=== PATIENT | male | born 1950 | race Caucasian/White ===

== ENCOUNTER 2018-02-04 08:18 | Observation (INO) | payer MEDICARE, OTHER, SELFPAY ==
[2018-02-04] VITALS (7 sets, daily range): BP systolic 110–138; BP diastolic 57–78; PULSE 62–74; RESP 16–22; TEMP 36.5–37.3; O2SAT 93–98; BMI 25.8
--- NOTE | 2018-02-04 08:45 | ED.ABDPAIN ---
HPI - Abdominal Pain General Chief Complaint: Abdominal Pain Stated Complaint: STOMACH PAIN,NAUSEA Time Seen by Provider: 02/04/18 08:45 Source: patient Mode of arrival: ambulatory Limitations: no limitations History of Present Illness HPI narrative: Patient is a 67-year-old male who presents with abdominal pain and vomiting. He says he has history of small-bowel obstructions. This started last evening he can usually take nausea medicine and pain medicine which usually helps it. However this time it did not. He says he feels like his abdomen is distended he says he is passing gas and having bowel movements. Related Data Home Medications Medication Instructions Recorded Confirmed atorvastatin 40 mg PO DAILY 02/04/18 02/04/18 bupropion HCl (smoking deter) 150 mg PO BID 02/04/18 02/04/18 hydrocodone-acetaminophen 1 tab PO Q4H PRN 02/04/18 02/04/18 prochlorperazine maleate 10 mg PO Q6-8H PRN 02/04/18 02/04/18 Allergies Allergy/AdvReac Type Severity Reaction Status Date / Time Penicillins [PENICILLINS] Allergy Unknown Verified 02/04/18 08:33 Review of Systems Review of Systems All systems reviewed & are unremarkable except as noted in HPI and below Constitutional Denies chills, Denies fever(s), Denies lethargy and Denies weakness Cardiovascular Denies chest pain, Denies irregular heart rhythm, Denies lightheadedness, Denies palpitations, Denies dyspnea, Denies dyspnea on exertion and Denies orthopnea Respiratory Denies cough, Denies dyspnea, Denies dyspnea on exertion and Denies wheezing Gastrointestinal Gastrointestinal: Reports as per HPI Musculoskeletal Denies back pain, Denies muscle weakness, Denies numbness and Denies tingling Integumentary/Breasts Denies pruritus, Denies erythema, Denies rash and Denies wounds Neurologic Denies numbness, Denies tingling and Denies weakness Endocrine Denies palpitations Allergic/Immunologic Denies wheezing [facility] Medical History Bowel obstruction (Acute) High cholesterol (Acute) Smoker (Acute) Surgical History H/O exploratory laparotomy (Acute ~1980) History of cholecystectomy (Acute ~1983) Social History household members: spouse Smoking Status: Current every day smoker alcohol intake: current Exam Initial Vital Signs Initial Vital Signs: Vital Signs Temperature 97.7 F 02/04/18 08:33 Pulse Rate 62 02/04/18 08:33 Respiratory Rate 22 02/04/18 08:33 Blood Pressure 137/71 H 02/04/18 08:33 Pulse Oximetry 98 02/04/18 08:33 Eyes Pupils: PERRL EOM: EOM intact bilaterally Resp Effort & Inspection: normal respiratory effort and able to speak in complete sentences Auscultation: clear to auscultation bilaterally, no rales, no rhonchi and no wheezes Cardio Rate: regular rate Rhythm: regular rhythm Heart Sounds: S1 normal, S2 normal and no murmurs GI Palpation: soft Auscultation: hyperactive bowel sounds Skin General: no rashes or lesions noted, No jaundice and No petechiae Neuro General: alert, oriented x3, gait normal and no focal motor deficits Speech: speech normal Course Orders Ordered: ED Orders 02/04/18 08:50 XR acute abdomen series Stat 02/04/18 08:55 Complete Blood Count AUTO DIFF Stat Comprehensive Metabolic Panel Stat Lipase Stat 02/04/18 11:26 Education, smoking cessation ONGOING 02/04/18 12:00 MRSA PCR Stat UA Complete [Urinalysis and Microscopic] Stat 02/05/18 05:00 Complete Blood Count AUTO DIFF Routine Comprehensive Metabolic Panel Routine Enoxaparin Sodium (Lovenox) 40 mg SUBCUT DAILY CHARMAINE Last Admin: 02/04/18 11:42 Dose: 40 mg Sodium Chloride (Normal Saline 0.9%) 1,000 mls @ 1,000 mls/hr IV CONT CHARMAINE Last Infusion: 02/04/18 10:31 Dose: 0 mls/hr Admin: 02/04/18 09:02 Dose: 1,000 mls/hr Dextrose/Sodium Chloride (Dextrose 5%-0.9% Ns) 1,000 mls @ 100 mls/hr IV CONT CHARMAINE Last Admin: 02/04/18 11:44 Dose: 100 mls/hr Discontinued Medications Morphine Sulfate (Morphine) 4 mg IV NOW ONE Stop: 02/04/18 08:51 Last Admin: 02/04/18 09:02 Dose: 4 mg Ondansetron HCl (Zofran) 4 mg IV NOW ONE Stop: 02/04/18 08:51 Last Admin: 02/04/18 09:02 Dose: 4 mg Consultations Consultation #1: Dr. Hooks has been updated patient's symptoms and test results. Recommends placed in observation Vital Signs - 8 hr 02/04/18 08:33 02/04/18 10:34 02/04/18 11:36 Temperature 97.7 F 98.1 F Pulse Rate 62 73 74 Respiratory Rate 22 16 16 Blood Pressure 137/71 H 123/57 H Blood Pressure [Left Arm] 112/67 Pulse Oximetry 98 93 95 02/04/18 12:17 Temperature 98.1 F Pulse Rate 67 Respiratory Rate 16 Blood Pressure 123/57 H Blood Pressure [Left Arm] Pulse Oximetry 95 MDM - Abdominal Pain Lab Data Result diagrams: 02/04/18 08:55 02/04/18 08:55 Lab Results 02/04/18 02/04/18 02/04/18 Range/Units 08:55 08:55 12:00 WBC 12.8 H (4.5-11.0) X10^3/uL RBC 4.87 (4.5-5.9) X10^6/uL Hgb 14.7 (13.5-17.5) g/dL Hct 42.6 (41-53) % MCV 87.5 (80-100) fL MCH 30.1 (26-34) PG MCHC 34.4 (30-36) % RDW 13.0 (11.6-14.8) % Plt Count 188 (150-400) X10^3/uL Neut % (Auto) 92.4 H (50-75) % Lymph % (Auto) 3.0 L (25-40) % [place] % (Auto) 3.9 (3-14) % Eos % (Auto) 0.3 L (2-4) % Baso % (Auto) 0.4 (0-2) % Neut # (Auto) 23406 H (6845-2118) /uL Sodium 140 (137-145) mmol/L Potassium 4.1 (3.4-5.1) mmol/L Chloride 105 (98-107) mmol/L Carbon Dioxide 26 (22-32) mmol/L BUN 12 (9-20) mg/dL Creatinine 0.70 (0.66-1.25) mg/dL Estimated GFR > 60.0 (>60) mL/min BUN/Creatinine Ratio 17.1 (6-22) Glucose 158 H (80-110) mg/dL Calcium 9.2 (8.4-10.2) mg/dL Total Bilirubin 0.6 (0.2-1.3) mg/dL AST 24 (17-59) IU/L ALT 33 (21-72) IU/L Alkaline Phosphatase 56 (38-126) U/L Total Protein 6.8 (6.3-8.2) g/dL Albumin 4.0 (3.5-5.0) g/dL Globulin 2.8 (1.7-4.1) g/dL Albumin/Globulin Ratio 1.4 (1.0-2.8) Lipase 48 (23-300) U/L Urine Color Yellow Urine Appearance Cloudy Urine pH 7.5 (4.5-8.0) Ur Specific [place] 1.015 (1.000-1.035) Urine Protein Trace H (Negative) Urine Glucose (UA) Negative (Normal) g/dL Urine Ketones Negative (NEGATIVE) Urine Occult Blood Negative (Negative) Urine Nitrate Negative (Negative) Urine Bilirubin Negative (NEGATIVE) Urine Urobilinogen 0.2 (0.2) E.U./dL Ur Leukocyte Esterase Negative (NEGATIVE) Urine RBC None seen (0-5/HPF) Urine WBC None seen (0-5/HPF) Amorphous Sediment 3+ Urine Bacteria None seen (None) Ur Culture Indicated? Cult not indicated Micro UA Comment Not Reportable Imaging Data Abdominal x-ray: Radiologist's impression: PROCEDURE: XR ACUTE ABDOMEN SERIES INDICATIONS: 67-year-old male with history of small bowel obstruction, now with vomiting. TECHNIQUE: One view chest and two views of the abdomen were acquired. COMPARISON: [facility], , ABDOMEN ACUTE SERIES, 04/11/2016, 23:20. [facility], , ABD ACUTE SERIES, 08/29/2006, 6:44. FINDINGS: Surgical changes and devices: Cholecystectomy clips are again noted. Chest: Lungs are clear. Heart size is normal. No pleural effusions. No pneumoperitoneum. Abdomen: There is dilation of proximal and mid small bowel loops in the left abdomen, measuring up to 3.9 cm diameter. No bowel wall or fold thickening. No pneumatosis. Distal small bowel loops appear decompressed. Colon loops appear normal in caliber. No suspicious calcifications. Visualized solid organ contours appear normal. Bones: No suspicious bony lesions. There is mid lumbar spine disc degeneration. IMPRESSION: Findings consistent with recurrent mid small bowel obstruction. Dictated by: Parish Moise M.D. on 02/04/2018 at 9:27 Approved by: Parish Moise M.D. on 02/04/2018 at 9:29 [facility] [place] Narrative Medical decision making narrative: Patient is adamantly refusing an NG 2. X-ray does confirm small bowel obstruction. He says this 1 really does not feel as bad as previous ones. No further episodes of vomiting Previous small bowel obstruction resolved spontaneously. At this point he appears comfortable. Will be placed in observation further monitoring and evaluation Discharge Plan Departure Patient Disposition: Admitted as Observation Clinical Impression: Small bowel obstruction Discharge Date/Time: 02/04/18 11:10 Interventions: ED Discharge Assessment Last Done: 02/04/18 11:09 Admit Date/Time: 02/04/18 10:42 Admit Provider: Tom Hooks
--- NOTE | 2018-02-04 08:50 | DI.RAD.S_ITS ---
PROCEDURE: XR ACUTE ABDOMEN SERIES INDICATIONS: 67-year-old male with history of small bowel obstruction, now with vomiting. TECHNIQUE: One view chest and two views of the abdomen were acquired. COMPARISON: [facility], , ABDOMEN ACUTE SERIES, 04/11/2016, 23:20. [facility], CR, ABD ACUTE SERIES, 08/29/2006, 6:44. FINDINGS: Surgical changes and devices: Cholecystectomy clips are again noted. Chest: Lungs are clear. Heart size is normal. No pleural effusions. No pneumoperitoneum. Abdomen: There is dilation of proximal and mid small bowel loops in the left abdomen, measuring up to 3.9 cm diameter. No bowel wall or fold thickening. No pneumatosis. Distal small bowel loops appear decompressed. Colon loops appear normal in caliber. No suspicious calcifications. Visualized solid organ contours appear normal. Bones: No suspicious bony lesions. There is mid lumbar spine disc degeneration. IMPRESSION: Findings consistent with recurrent mid small bowel obstruction. Dictated by: Parish Moise M.D. on 02/04/2018 at 9:27 Approved by: Parish Moise M.D. on 02/04/2018 at 9:29
[2018-02-04] MEDS: ONDANSETRON 4 MG/2 ML INJ IV (09:02)
[2018-02-04] MEDS: MORPHINE 4 MG/ML INJ IV (09:02)
[2018-02-04] MEDS: SODIUM CHLORIDE 0.9% 1,000 ML 1000 ML IV (09:02)
[2018-02-04 09:04] LABS: Add Manual Diff / Slide Review NO; Basophils Percent Auto 0.4 % (0-2); Eosinophils Percent Auto 0.3 % (2-4); Hematocrit 42.6 % (41-53); Hemoglobin 14.7 g/dL (13.5-17.5); Mean Corpuscular HGB Conc 34.4 % (30-36); Mean Corpuscular Hemoglobin 30.1 PG (26-34); Mean Corpuscular Volume 87.5 fL (80-100); Monocytes Percent Auto 3.9 % (3-14); Neutrophils Absolute Auto 11800 /uL (3000-5900); Neutrophils Percent Auto 92.4 % (50-75); Platelet Count 188 X10^3/uL (150-400); Red Blood Cell Count 4.87 X10^6/uL (4.5-5.9); White Blood Cell Count 12.8 X10^3/uL (4.5-11.0)
[2018-02-04 09:19] LABS: Alanine Aminotransferase 33 IU/L (21-72); Albumin Globulin Ratio 1.4 (1.0-2.8); Alkaline Phosphatase 56 U/L (38-126); Aspartate Aminotransferase 24 IU/L (17-59); BUN Creatinine Ratio 17.1 (6-22); Bilirubin Total 0.6 mg/dL (0.2-1.3); Blood Urea Nitrogen 12 mg/dL (9-20); Calcium 9.2 mg/dL (8.4-10.2); Carbon Dioxide 26 mmol/L (22-32); Chloride 105 mmol/L (98-107); Estimated Glomerular Filt Rate > 60.0 mL/min (>60); Globulin 2.8 g/dL (1.7-4.1); Glucose 158 mg/dL (80-110); HEMOLYSIS 16 (0-50); Lipase 48 U/L (23-300); Potassium 4.1 mmol/L (3.4-5.1); Sodium 140 mmol/L (137-145); Total Protein 6.8 g/dL (6.3-8.2)
[2018-02-04] MEDS: ENOXAPARIN 40 MG/0.4 ML SYRINGE SUBCUT (11:42)
[2018-02-04] MEDS: DEXTROSE 5%-0.9% NS 1,000 ML 100 ML IV ×2 (11:44→21:21)
[2018-02-04 12:16] LABS: Bacteria Urine None Seen; RBC Urine None Seen (0-5/HPF); WBC Urine None Seen (0-5/HPF)
[2018-02-04 12:18] LABS: Appearance Urine UA CLOUDY; Bilirubin Urine UA NEGATIVE (NEGATIVE); Color Urine UA YELLOW; Glucose Urine UA NEGATIVE (Normal); Ketones Urine UA NEGATIVE (NEGATIVE); Leukocyte Esterase Urine UA NEGATIVE (NEGATIVE); Nitrite Urine UA Negative (Negative); Occult Blood Urine UA NEGATIVE (Negative); Protein Urine UA TRACE (Negative); Specific Gravity Urine UA 1.015 (1.000-1.035); Urobilinogen Urine UA 0.2 E.U./dL (0.2); pH Urine UA 7.5 (4.5-8.0)
[2018-02-04 12:25] LABS: Amorphous Sediment Urine 3+; Culture Indicated Urine Cult Not Indicated
--- NOTE | 2018-02-04 12:53 | P.HP_ITS ---
History of Present Illness Date Patient Seen: 02/04/18 Time Patient Seen: 12:51 Chief complaint: STOMACH PAIN,NAUSEA Narrative: Patient presents with nausea vomiting abdominal pain. He has a previous history of small-bowel obstructions has occurred frequently over the past several years but usually is resolved with conservative management. Symptoms started early this morning with nausea vomiting. Last normal bowel movement was yesterday. Increasing abdominal pain. He has had no vomiting now for a few hours but symptoms of pain and discomfort still persist Patient History Medical History Bowel obstruction (Acute) High cholesterol (Acute) Smoker (Acute) Surgical History H/O exploratory laparotomy (Acute ~1980) History of cholecystectomy (Acute ~1983) Family & Social History Social History: household members spouse Prior Living Arrangements House Safety & Behavioral: Feels Safe in Current No Environment Been Physically Hurt or No Threatened By a Person Suicidal Ideation Description None Suicide Plan Description No Plan Tobacco & Substance use: Tobacco type cigarettes Smoking Status Current every day smoker Smoking packs per day 1 alcohol intake current alcohol intake frequency holiday/special occasion Meds Home Medications Medication Instructions Recorded Confirmed Type atorvastatin 40 mg PO DAILY 02/04/18 02/04/18 History bupropion HCl (smoking deter) 150 mg PO BID 02/04/18 02/04/18 History hydrocodone-acetaminophen 1 tab PO Q4H PRN 02/04/18 02/04/18 History prochlorperazine maleate 10 mg PO Q6-8H PRN 02/04/18 02/04/18 History Allergies Allergy/AdvReac Type Severity Reaction Status Date / Time Penicillins [PENICILLINS] Allergy Unknown Verified 02/04/18 08:33 Review of Systems Review of Systems All systems reviewed & are unremarkable except as noted in HPI and below Exam Vital Signs (past 8 hours): - 02/04/18 08:33 02/04/18 10:34 02/04/18 11:36 Temperature 97.7 F 98.1 F Pulse Rate 62 73 74 Respiratory Rate 22 16 16 Blood Pressure 137/71 H 123/57 H Blood Pressure [Left Arm] 112/67 Pulse Oximetry 98 93 95 02/04/18 12:17 Temperature 98.1 F Pulse Rate 67 Respiratory Rate 16 Blood Pressure 123/57 H Blood Pressure [Left Arm] Pulse Oximetry 95 Oxygen Delivery Method Room Air Oxygen Flow Rate 0 Narrative Exam Narrative: Pleasant male resting comfortably no acute distress HEENT exam unremarkable Neck is supple Lungs Clear to auscultation Heart regular rhythm Abdomen is mildly distended bowel sounds are present mild diffuse tenderness to palpation no masses Lower extremities no edema Skin warm and dry Neuro exam unremarkable Objective Labs Result Diagrams: 02/04/18 08:55 02/04/18 08:55 Labs: Laboratory Results - last 24 hr 02/04/18 02/04/18 02/04/18 08:55 08:55 12:00 WBC 12.8 H RBC 4.87 Hgb 14.7 Hct 42.6 MCV 87.5 MCH 30.1 MCHC 34.4 RDW 13.0 Plt Count 188 Neut % (Auto) 92.4 H Lymph % (Auto) 3.0 L [place] % (Auto) 3.9 Eos % (Auto) 0.3 L Baso % (Auto) 0.4 Neut # (Auto) 03890 H Sodium 140 Potassium 4.1 Chloride 105 Carbon Dioxide 26 BUN 12 Creatinine 0.70 Estimated GFR > 60.0 BUN/Creatinine Ratio 17.1 Glucose 158 H Calcium 9.2 Total Bilirubin 0.6 AST 24 ALT 33 Alkaline Phosphatase 56 Total Protein 6.8 Albumin 4.0 Globulin 2.8 Albumin/Globulin Ratio 1.4 Lipase 48 Urine Color Yellow Urine Appearance Cloudy Urine pH 7.5 Ur Specific [place] 1.015 Urine Protein Trace H Urine Glucose (UA) Negative Urine Ketones Negative Urine Occult Blood Negative Urine Nitrate Negative Urine Bilirubin Negative Urine Urobilinogen 0.2 Ur Leukocyte Esterase Negative Urine RBC None seen Urine WBC None seen Amorphous Sediment 3+ Urine Bacteria None seen Ur Culture Indicated? Cult not indicated Micro UA Comment Not Reportable Assessment & Plan Plan: Assessment/Plan Narrative: One. Small bowel obstruction by x-ray and history. This has happened frequently to the patient least a few times each year and seems like. He had surgery many years ago for exploratory laparotomy and ever since then has had recurrent bowel obstructions due to adhesions. He has never had surgery for the bowel obstruction now ever. Plan to place him on IV fluids pain medications Reglan and see if we can get this to resolve with conservative management
--- NOTE | 2018-02-04 14:31 | PC.NURSE ---
PT ADMITTED TO ROOM 105 MED-SURG PT WITH ABD PAIN AND HX OF INTERMITTENT SBO- IVF AT 100CC/H NO PAIN/NAUSEA COMPLAINTS SINCE ADMISSION TO FLOOR- LUNGS CLEAR, AMBULATING TO BATHROOM- WILL MONITOR CLOSELY
[2018-02-05 00:36] VITALS: O2SAT 93
--- NOTE | 2018-02-05 00:38 | PC.NURSE ---
Pt transferred from ICU, ambulatory and independent. NPO. pt comfortable in room. oriented pt in room. physical assessments reviewed. call light in reach.
[2018-02-05 05:21] VITALS: BP 95/65; PULSE 59; RESP 19; TEMP 36.3; O2SAT 95
[2018-02-05 05:44] LABS: Add Manual Diff / Slide Review NO; Basophils Percent Auto 0.5 % (0-2); Eosinophils Percent Auto 2.7 % (2-4); Hematocrit 37.5 % (41-53); Hemoglobin 12.9 g/dL (13.5-17.5); Mean Corpuscular HGB Conc 34.5 % (30-36); Mean Corpuscular Hemoglobin 30.6 PG (26-34); Mean Corpuscular Volume 88.8 fL (80-100); Monocytes Percent Auto 9.3 % (3-14); Neutrophils Absolute Auto 4100 /uL (3000-5900); Neutrophils Percent Auto 65.5 % (50-75); Platelet Count 154 X10^3/uL (150-400); Red Blood Cell Count 4.22 X10^6/uL (4.5-5.9); White Blood Cell Count 6.2 X10^3/uL (4.5-11.0)
[2018-02-05 05:52] LABS: Alanine Aminotransferase 35 IU/L (21-72); Albumin 3.1 g/dL (3.5-5.0); Albumin Globulin Ratio 1.2 (1.0-2.8); Alkaline Phosphatase 44 U/L (38-126); Aspartate Aminotransferase 21 IU/L (17-59); BUN Creatinine Ratio 11.4 (6-22); Bilirubin Total 0.6 mg/dL (0.2-1.3); Blood Urea Nitrogen 8 mg/dL (9-20); Carbon Dioxide 26 mmol/L (22-32); Chloride 106 mmol/L (98-107); Estimated Glomerular Filt Rate > 60.0 mL/min (>60); Globulin 2.5 g/dL (1.7-4.1); Glucose 116 mg/dL (80-110); HEMOLYSIS < 15 (0-50); Potassium 3.9 mmol/L (3.4-5.1); Sodium 140 mmol/L (137-145); Total Protein 5.6 g/dL (6.3-8.2)
[2018-02-05 06:10] VITALS: BP 118/72; PULSE 61
--- NOTE | 2018-02-05 06:18 | PC.NURSE ---
no BM yet, passing gas, denies pain. BP low, asymptomatic, denies dizziness or lightheadedness. IVF.
[2018-02-05] MEDS: DEXTROSE 5%-0.9% NS 1,000 ML 100 ML IV (07:30)
[2018-02-05 07:48] VITALS: BP 118/66; PULSE 58; RESP 20; TEMP 36.4; O2SAT 95
[2018-02-05 08:32] VITALS: O2SAT 95
--- NOTE | 2018-02-05 09:28 | PM.DS.1 ---
History of Present Illness Date Patient Seen: 02/05/18 Time Patient Seen: 08:00 Chief complaint: STOMACH PAIN,NAUSEA Narrative: Patient presents with nausea vomiting abdominal pain. He has a previous history of small-bowel obstructions has occurred frequently over the past several years but usually is resolved with conservative management. Symptoms started early this morning with nausea vomiting. Last normal bowel movement was yesterday. Increasing abdominal pain. He has had no vomiting now for a few hours but symptoms of pain and discomfort still persist Discharge Providers Date of admission: 02/04/18 10:42 Discharge provider: BUDDY Spence Summary Discharge Diagnosis: 1. Small-bowel obstruction Hospital Course: This is a summary of a 24 hr stay for this 67-year-old gentleman who came in with a small-bowel obstruction is diagnosed on x-ray and history. He was placed on NPO given IV hydration and subsequently the bowel obstruction resolved with conservative management. He has required no nausea or pain medications since being admitted to the inpatient floor. His white count was slightly elevated on admission at 12.8 but this morning is 6.2. He has been afebrile, normotensive, without tachycardia. He is tolerating a regular diet at this point after having a bowel movement this morning and will be discharged. He is to be followed by his primary care provider as needed. Status at Discharge Functional status at discharge: independent ambulation Overall status at discharge: patient is back to baseline Time Spent with Patient Less than 30 minutes Exam Vital Signs (past 8 hours): - 02/05/18 05:21 02/05/18 06:10 02/05/18 07:48 Temperature 97.4 F L 97.6 F Pulse Rate 59 L 61 58 L Respiratory Rate 19 20 Blood Pressure 95/65 118/72 118/66 Pulse Oximetry 95 95 02/05/18 08:32 Temperature Pulse Rate Respiratory Rate Blood Pressure Pulse Oximetry 95 Oxygen Delivery Method Room Air Oxygen Flow Rate 0 Narrative Exam Narrative: Patient states he is feeling much better this morning without any abdominal pain. Const General: cooperative, healthy appearing, comfortable and well groomed Nutritional Appearance: obese Orientation: alert, awake and oriented x3 HENMT Head: normal to inspection, normocephalic and atraumatic Eyes General: appearance normal, both eyes and all related structures Pupils: PERRL Neck Neck: normal visual inspection, trachea midline and supple Other: No JVD or lymphadenopathy Chest Chest: normal inspection of the chest Resp Effort & Inspection: normal respiratory effort and able to speak in complete sentences Auscultation: clear to auscultation bilaterally Cardio Rate: regular rate Heart Sounds: S1 normal and S2 normal Other: No rubs clicks or murmurs appreciated. GI Inspection: normal to inspection Palpation: soft Percussion: normal to percussion Auscultation: normal bowel sounds Other: Unremarkable Back/Spine/Pelvis Other: Unremarkable Skin General: no rashes or lesions noted, dry skin and warm Neuro General: alert, awake and oriented x3 Cognition: normal cognition Speech: speech normal Gait: normal gait Motor: muscle tone normal throughout Sensory Exam: no sensory deficits noted Extrem General: normal to inspection and capillary refill normal Other: No edema Psych Appearance: grossly normal Speech and Movement: speech and movement normal Mood: congruent mood Affect: normal affect Attitude: cooperative Thought Process: normal Thought Content: normal Judgment: judgment good Objective Labs Result Diagrams: 02/05/18 05:05 02/05/18 05:05 Labs: Laboratory Results - last 24 hr 02/04/18 02/04/18 02/05/18 12:00 12:00 05:05 WBC 6.2 D RBC 4.22 L Hgb 12.9 L Hct 37.5 L MCV 88.8 MCH 30.6 MCHC 34.5 RDW 13.0 Plt Count 154 Neut % (Auto) 65.5 D Lymph % (Auto) 22.0 L [place] % (Auto) 9.3 Eos % (Auto) 2.7 Baso % (Auto) 0.5 Neut # (Auto) 4100 Sodium Potassium Chloride Carbon Dioxide BUN Creatinine Estimated GFR BUN/Creatinine Ratio Glucose Calcium Total Bilirubin AST ALT Alkaline Phosphatase Total Protein Albumin Globulin Albumin/Globulin Ratio Urine Color Yellow Urine Appearance Cloudy Urine pH 7.5 Ur Specific [place] 1.015 Urine Protein Trace H Urine Glucose (UA) Negative Urine Ketones Negative Urine Occult Blood Negative Urine Nitrate Negative Urine Bilirubin Negative Urine Urobilinogen 0.2 Ur Leukocyte Esterase Negative Urine RBC None seen Urine WBC None seen Amorphous Sediment 3+ Urine Bacteria None seen Ur Culture Indicated? Cult not indicated Micro UA Comment Not Reportable Nasal Screen MRSA (PCR) Negative for mrsa 02/05/18 05:05 WBC RBC Hgb Hct MCV MCH MCHC RDW Plt Count Neut % (Auto) Lymph % (Auto) [place] % (Auto) Eos % (Auto) Baso % (Auto) Neut # (Auto) Sodium 140 Potassium 3.9 Chloride 106 Carbon Dioxide 26 BUN 8 L Creatinine 0.70 Estimated GFR > 60.0 BUN/Creatinine Ratio 11.4 Glucose 116 H Calcium 8.0 L Total Bilirubin 0.6 AST 21 ALT 35 Alkaline Phosphatase 44 Total Protein 5.6 L Albumin 3.1 L Globulin 2.5 Albumin/Globulin Ratio 1.2 Urine Color Urine Appearance Urine pH Ur Specific [place] Urine Protein Urine Glucose (UA) Urine Ketones Urine Occult Blood Urine Nitrate Urine Bilirubin Urine Urobilinogen Ur Leukocyte Esterase Urine RBC Urine WBC Amorphous Sediment Urine Bacteria Ur Culture Indicated? Micro UA Comment Nasal Screen MRSA (PCR) PROCEDURE: XR ACUTE ABDOMEN SERIES INDICATIONS: 67-year-old male with history of small bowel obstruction, now with vomiting. TECHNIQUE: One view chest and two views of the abdomen were acquired. COMPARISON: [facility], , ABDOMEN ACUTE SERIES, 04/11/2016, 23:20. [facility], , ABD ACUTE SERIES, 08/29/2006, 6:44. FINDINGS: Surgical changes and devices: Cholecystectomy clips are again noted. Chest: Lungs are clear. Heart size is normal. No pleural effusions. No pneumoperitoneum. Abdomen: There is dilation of proximal and mid small bowel loops in the left abdomen, measuring up to 3.9 cm diameter. No bowel wall or fold thickening. No pneumatosis. Distal small bowel loops appear decompressed. Colon loops appear normal in caliber. No suspicious calcifications. Visualized solid organ contours appear normal. Bones: No suspicious bony lesions. There is mid lumbar spine disc degeneration. IMPRESSION: Findings consistent with recurrent mid small bowel obstruction. Dictated by: Parish Moise M.D. on 02/04/2018 at 9:27 Approved by: Parish Moise M.D. on 02/04/2018 at 9:29 Discharge Plan Discharge Plan Patient Disposition: Home, Self-Care Discharge comment: To follow up with primary care provider as needed Provider Discharge Instructions Diet: Diet as Tolerated and Regular Activity: As tolerated Oxygen: Room air Discharge Data Attending Provider: Tom Hooks Admit Date/Time: 02/04/18 10:42
--- NOTE | 2018-02-05 11:04 | CM.DANOTE ---
DCP: assessment: case received, EMR reviewed, d/c to home order noted, checked in with RN and met with pt. Introduced self and role. Pt is a 67 year old male who admitted yesterday to care of hospitalist team. Payer: Medicare and Standard PCP: just got a new doctor at [facility] in [facility], can't recall the name. Pt states he has been in the hospital many times over the years with bowel obstructions. I can tell it is resolving. He states Dr. Hooks has ok'd him for home today after lunch if all continues to go well. P: home today likely...will follow prn.
[2018-02-05 11:40] VITALS: BP 119/74; PULSE 60; RESP 16; TEMP 36.6; O2SAT 97
--- NOTE | 2018-02-05 13:44 | PC.NURSE ---
02/05/2018 1344 Patient A&Ox4, denies continuing symptoms from admitting diagnosis, passing gas and had a bowel movement. Tolerated clears for breakfast continued to tolerate general diet for lunch without symptoms. Patient very eager and ready to discharge. IV removed, VSS, denied presence of pain. Spouse at bedside. Escorted by staff via wheelchair to private vehicle, with belonging, and discharge paperwork in hand.
== END 2018-02-05 13:45 | disposition home or self-care (01) ==
LOC: ED 10:15 → ICU 10:42 → AC 23:58
PROVIDERS: Admitting Provider Internal Medicine; Emergency Provider Emergency Medicine; Visit Provider Internal Medicine
DX: K56.699 Other intestinal obstruction unspecified as to partial versus complete obstruction (principal); R10.9 Unspecified abdominal pain; R11.0 Nausea; F17.210 Nicotine dependence, cigarettes, uncomplicated
CPT/HCPCS: 36415; 36591; 74022; 80053; 81001; 83690; 85025; 87797; 96361; 96374; 96375; 99283; 99285; 99406; G0378; J1650; J2270; J2405

== ENCOUNTER 2019-05-18 12:22 | Emergency (ER) | payer MEDICARE, OTHER, SELFPAY ==
[2018-02-04 11:22] VITALS: BMI 25.8
[2019-05-18 12:46] VITALS: BP 120/64; PULSE 64; RESP 15; TEMP 36.4; O2SAT 98; BMI 35.2
--- NOTE | 2019-05-18 13:22 | ED_ITS ---
HPI - Skin/Abscess/Foreign Bdy General Chief complaint: Skin/Abscess/Foreign Body Stated complaint: rash on lower legs creeping up Time Seen by Provider: 05/18/19 12:33 Source: patient Mode of arrival: Ambulatory Limitations: no limitations History of Present Illness HPI narrative: 69-year-old male nonsmoker with history of hyperlipidemia presents with his with a chief complaint of a pruritic rash on both legs which has been there for quite some time but seems to be spreading up and becoming itchy over the past few days. He has tried applying lotion which at times helps. He denies any other systemic symptoms such as fever, chills nor nausea or vomiting. He denies any pain. He denies any allergic type symptoms such as trouble with breathing, swelling of lips, tongue or throat. MD complaint: rash Onset (ago): day(s) Related Data Home Medications Medication Instructions Recorded Confirmed atorvastatin 40 mg PO DAILY 02/04/18 05/18/19 Previous Rx's Medication Instructions Recorded triamcinolone acetonide 1 applictn TOP BID 7 Days 05/18/19 Allergies Allergy/AdvReac Type Severity Reaction Status Date / Time Penicillins [PENICILLINS] Allergy Unknown Verified 05/18/19 12:45 Review of Systems Constitutional Constitutional: Denies chills, Denies fatigue, Denies fever(s), Denies frequent falls, Denies lethargy and Denies weakness Eyes Eyes: Denies change in vision, Denies eye discharge, Denies irritation and Denies loss of vision ENT Ears, Nose, Mouth, and Throat: Denies change in voice, Denies dizziness, Denies neck pain, Denies sore throat and Denies throat swelling Cardiovascular Cardiovascular: Denies chest pain, Denies irregular heart rhythm, Denies lightheadedness, Denies palpitations, Denies dyspnea, Denies dyspnea on exertion and Denies orthopnea Respiratory Respiratory: Denies cough, Denies dyspnea, Denies dyspnea on exertion and Denies wheezing Gastrointestinal Gastrointestinal: Denies abdominal pain, Denies change in bowel habits, Denies diarrhea, Denies nausea and Denies vomiting Genitourinary Genitourinary: Denies hematuria, Denies flank pain, Denies urinary incontinence and Denies urinary urgency Musculoskeletal Musculoskeletal: Denies back pain, Denies muscle weakness, Denies neck pain, Denies numbness and Denies tingling Integumentary/Breasts Skin/Breast: Reports pruritus, Denies erythema, Reports rash and Denies wounds Neurologic Neurologic: Denies behavioral changes, Denies confusion, Denies dizziness, Denie s frequent falls, Denies loss of vision, Denies numbness, Denies tingling and Denies weakness Psychiatric Psychiatric: Denies anxiety, Denies behavioral changes, Denies confusion, Denies depression, Denies homicidal ideation and Denies suicidal ideation Endocrine Endocrine: Denies fatigue, Denies flushing and Denies palpitations Hematologic/Lymphatic Hematologic/Lymphatic: Denies easy bruising Allergic/Immunologic Allergic/Immunologic: Denies urticaria, Denies throat swelling and Denies wheezing PFSH Medical History Bowel obstruction (Acute) High cholesterol (Acute) Smoker (Acute) Surgical History H/O exploratory laparotomy (Acute ~1980) History of cholecystectomy (Acute ~1983) Social History household members: spouse Smoking Status: Current every day smoker alcohol intake: current Social History household members: spouse Smoking Status: Current every day smoker alcohol intake: current Exam Narrative Exam Narrative: GEN: AOx3 and in mild distress EYES: Pupils are equal, round, and reactive to light and accommodation. Extraoccular muscles are intact bilaterally. There is no subconjunctival hemorrhage or exudate. CHEST: Lungs are clear to auscultation bilaterally and free of wheezes, rales, or rhonchi. Heart rate is regular rhythm, there are no murmurs, clicks, rubs, or gallops. There is no chest wall tenderness. ABD: Abdomen is soft and nontender. There is no guarding or rebound. Bowel sounds are normal in all 4 quadrants. There is no mass or organomegaly. EXT: Full painless ROM of all extremities with no loss of sensation or strength. SKIN: pruritic, Warm, pink, and dry. Pruritic, chronic venous stasis. Not infections, no sign of DVT. Initial Vital Signs Initial Vital Signs: Vital Signs Temperature 97.5 F L 05/18/19 12:46 Pulse Rate 64 05/18/19 12:46 Respiratory Rate 15 05/18/19 12:46 Blood Pressure 120/64 1009/19 12:46 Pulse Oximetry 98 05/18/19 12:46 Course Vital Signs Vital signs: Vital Signs - 8 hr 05/18/19 12:46 Temperature 97.5 F L Pulse Rate 64 Respiratory Rate 15 Blood Pressure 120/64 Pulse Oximetry 98 MDM - Skin/Abscess/Foreign Bdy Lab Data Result diagrams: 05/18/19 14:05 05/18/19 14:05 Labs: Lab Results 05/18/19 05/18/19 Range/Units 14:05 14:05 WBC 5.2 (4.5-11.0) X10^3/uL RBC 4.74 (4.5-5.9) X10^6/uL Hgb 14.2 (13.5-17.5) g/dL Hct 42.0 (41-53) % MCV 88.6 (80-100) fL MCH 30.0 (26-34) PG MCHC 33.8 (30-36) % RDW 13.3 (11.6-14.8) % Plt Count 224 (150-400) X10^3/uL Neut % (Auto) 64.1 (50-75) % Lymph % (Auto) 22.8 L (25-40) % [place] % (Auto) 9.8 (3-14) % Eos % (Auto) 2.4 (2-4) % Baso % (Auto) 0.9 (0-2) % Neut # (Auto) 3400 (4791-9645) /uL Lymph # (Auto) 1200 (3031-3637) /uL [place] # (Auto) 500 (0-900) /uL Eos # (Auto) 100 (0-450) /uL Baso # (Auto) 0 (0-100) /uL Sodium 139 (137-145) mmol/L Potassium 4.4 (3.4-5.1) mmol/L Chloride 105 (98-107) mmol/L Carbon Dioxide 25 (22-32) mmol/L BUN 11 (9-20) mg/dL Creatinine 0.70 (0.66-1.25) mg/dL Estimated GFR > 60.0 (>60) mL/min BUN/Creatinine Ratio 15.7 (6-22) Glucose 97 (80-110) mg/dL Calcium 9.5 (8.4-10.2) mg/dL MDM Narrative Medical decision making narrative: Multiple etiologies considered including DVT, cellulitis, allergic reaction, thrombocytopenia versus other but thought unlikely given history, physical and lab findings. Patient and given extensive return precautions which they clearly understand based on their ability to verbalize to me. Questions answered to their apparent satisfaction Discharge Plan Departure Patient Disposition: Home Clinical Impression: Venous stasis dermatitis Qualifiers: Laterality: bilateral Qualified Code(s): I87.2 - Venous insufficiency (chronic) (peripheral) Discharge Date/Time: 05/18/19 15:11 Instructions: Contact Dermatitis Activity Restrictions/Additional Instructions: *You have been diagnosed with [acute venous stasis dermatitis] *What to do: *Take medications as directed *Follow up with your primary care provider in 2-3 days, call for an appointment. Let them know you were seen in the Emergency Department and that we ask that you be seen in follow up *Return to ER if you should have any new, worsening or concerning symptoms Prescriptions: New triamcinolone acetonide 0.1 % cream 1 applictn TOP BID 7 Days RF: 0 No Action atorvastatin 40 mg tablet 40 mg PO DAILY RF: 0
[2019-05-18 14:09] LABS: Add Manual Diff / Slide Review NO; Basophils Absolute Auto 0 /uL (0-100); Basophils Percent Auto 0.9 % (0-2); Eosinophils Absolute Auto 100 /uL (0-450); Eosinophils Percent Auto 2.4 % (2-4); Hemoglobin 14.2 g/dL (13.5-17.5); Lymphocytes Absolute Auto 1200 /uL (1100-4500); Lymphocytes Percent Auto 22.8 % (25-40); Mean Corpuscular HGB Conc 33.8 % (30-36); Mean Corpuscular Volume 88.6 fL (80-100); Monocytes Absolute Auto 500 /uL (0-900); Monocytes Percent Auto 9.8 % (3-14); Neutrophils Absolute Auto 3400 /uL (1500-7000); Neutrophils Percent Auto 64.1 % (50-75); Platelet Count 224 X10^3/uL (150-400); Red Blood Cell Count 4.74 X10^6/uL (4.5-5.9); Red Cell Distribution Width 13.3 % (11.6-14.8); White Blood Cell Count 5.2 X10^3/uL (4.5-11.0)
[2019-05-18 14:21] LABS: BUN Creatinine Ratio 15.7 (6-22); Blood Urea Nitrogen 11 mg/dL (9-20); Calcium 9.5 mg/dL (8.4-10.2); Carbon Dioxide 25 mmol/L (22-32); Chloride 105 mmol/L (98-107); Estimated Glomerular Filt Rate > 60.0 mL/min (>60); Glucose 97 mg/dL (80-110); HEMOLYSIS < 15 (0-50); Potassium 4.4 mmol/L (3.4-5.1); Sodium 139 mmol/L (137-145)
== END 2019-05-18 15:11 | disposition home or self-care (01) ==
PROVIDERS: Emergency Provider Emergency Medicine
DX: I87.2 Venous insufficiency (chronic) (peripheral) (principal)
CPT/HCPCS: 36415; 80048; 85025; 99282; 99283

== ENCOUNTER 2023-05-02 00:16 | Emergency (ER) | payer MEDICARE, SELFPAY ==
[2018-02-04 11:22] VITALS: BMI 25.8
[2023-05-02 00:26] VITALS: BP 137/66; PULSE 73; RESP 16; TEMP 36.8; O2SAT 98; BMI 31.1
--- NOTE | 2023-05-02 00:45 | ED.NEUROSD ---
HPI - Neuro Symptoms/Deficit General Chief Complaint: Neuro Symptoms/Deficit Stated Complaint: cant control legs at night Time Seen by Provider: 05/02/23 00:32 Source: patient Mode of arrival: Ambulatory History of Present Illness HPI Narrative: Patient is a 73-year-old male history of restless leg syndrome chronic back pain presenting today with worsening restless leg. He was started on gabapentin last week to try and help. However tonight it seems to be little bit worse. His brother yesterday in his father this afternoon. Under quite a bit of emotional distress as well. He is no changes in bowel or bladder habits. No numbness tingling or weakness. He is taking ropinirole gabapentin On Anticoagulants: No Related Data Home Medications Medication Instructions Recorded Confirmed atorvastatin 40 mg tablet 40 mg PO DAILY 02/04/18 05/18/19 Allergies Allergy/AdvReac Type Severity Reaction Status Date / Time Penicillins [PENICILLINS] Allergy Unknown Verified 05/18/19 12:45 Review of Systems Review of Systems ROS Unobtainable: All systems reviewed & are unremarkable except as noted in HPI and below Hematologic/Lymphatic On Anticoagulants: No Patient History Medical History Bowel obstruction High cholesterol Smoker Surgical History H/O exploratory laparotomy (~1980) History of cholecystectomy (~1983) Social History household members: spouse Smoking Status: Current every day smoker alcohol intake: current Smoking Status: Current every day smoker tobacco type: cigarettes alcohol intake frequency: holidays/special occasions only Substance Use Type: does not use Exam Initial Vital Signs Initial Vital Signs: Vital Signs Temperature 98.2 F 05/02/23 00:26 Pulse Rate 73 05/02/23 00:26 Respiratory Rate 16 05/02/23 00:26 Blood Pressure 137/66 05/02/23 00:26 Pulse Oximetry 98 05/02/23 00:26 Oxygen Delivery Method Room Air 05/02/23 00:26 GENERAL: Well-appearing, well-nourished and in no acute distress. CARDIOVASCULAR: peripheral pulses in tact, cap refill <2 sec RESPIRATORY: No respiratory distress, speaks in full sentences without difficulty EXTREMITIES: Normal range of motion, no clubbing or edema. Neurovascularly intact. Distal pedal pulses intact NEUROLOGICAL: Cranial nerves II through XII grossly intact. Normal gait and speech. No active twitching or shaking SKIN: Warm, dry, no petechiae, no rashes or lesions. Course Orders Ordered: Discontinued Medications Lorazepam (Lorazepam 0.5 Mg Tablet) 1 mg PO NOW ONE Stop: 05/02/23 00:53 Last Admin: 05/02/23 01:02 Dose: 1 mg Documented By: ANDERSON Vital Signs Vital signs: Vital Signs - 8 hr 05/02/23 00:26 05/02/23 00:51 05/02/23 01:00 Temperature 98.2 F Pulse Rate 73 67 65 Respiratory Rate 16 Blood Pressure 137/66 Pulse Oximetry 98 95 94 Oxygen Delivery Method Room Air 05/02/23 01:05 05/02/23 01:05 Temperature Pulse Rate 65 Respiratory Rate Blood Pressure 124/61 Pulse Oximetry 95 Oxygen Delivery Method MDM - Neuro Symptoms/Deficit MDM Narrative Medical decision making narrative: Patient is 73-year-old male history of restless legs syndrome status though it has been getting a little bit worse. Tonight was pretty bad he is also had recent emotional stress with loss of very close family members. Not actively having discomfort or shaking now but he was just prior to arrival. At this time I will give him Ativan to go home with. Discharge Plan Departure Patient Disposition: Home Clinical Impression: Restless leg Instructions: Restless Legs Syndrome Activity Restrictions/Additional Instructions: *You have been diagnosed with restless leg *What to do: I am so sorry for your loss. *Continue to take medications as directed Ativan 0.5 mg when you get home if you are still having symptoms after an hour then you may take the 2nd half. Or you may take the 2nd half tomorrow night if needed *Follow up with your primary care provider in 2-3 days or call [phone] *Return to ER if you should have increasing leg pain weakness loss of urine or stool or any new, worsening or concerning symptoms Prescriptions: No Action atorvastatin 40 mg tablet 40 mg PO DAILY Stand Alone Forms: Patient Portal/API
[2023-05-02 00:51] VITALS: PULSE 67; O2SAT 95
[2023-05-02 01:00] VITALS: PULSE 65; O2SAT 94
[2023-05-02] MEDS: LORazepam 0.5 MG TABLET 1 MG PO (01:02)
[2023-05-02 01:05] VITALS: BP 124/61; PULSE 65; O2SAT 95
== END 2023-05-02 01:09 | disposition home or self-care (01) ==
PROVIDERS: Emergency Provider Emergency Medicine
DX: G25.81 Restless legs syndrome (principal)
CPT/HCPCS: 99283

== ENCOUNTER 2023-09-15 09:45 | Outpatient (RCR) | payer MEDICARE, OTHER, SELFPAY ==
[2018-02-04 11:22] VITALS: BMI 25.8
--- NOTE | 2023-03-17 08:35 | PT.OIE ---
Current Diagnoses Malignant neoplasm of prostate (03/12/23) Stress incontinence (female) (male) (03/12/23) Pelvic muscle wasting (03/12/23) Unspecified urinary incontinence (03/12/23) Nocturia (03/12/23) Feeling of incomplete bladder emptying (03/12/23) Past Medical History Bowel obstruction High cholesterol Smoker Past Surgical History (Last Reviewed 05/19/19 @ 08:58 by Ari Marinelli DO) H/O exploratory laparotomy (~1980) History of cholecystectomy (~1983) Visit Care Team Role Provider Type Basil Terrazas DO Attending Provider Non-Staff Referring Provider Specialty: Family Practice Address: [address] [place] [address], [id number] Email: Physical Therapy Initial Evaluation PT-OP-A Visit Information Start: 03/12/23 15:01 Freq: Status: Active Protocol: Document 03/12/23 15:05 [facility] (Rec: 03/12/23 15:32 [facility] [id number]) Out-Patient Physical Therapy Visit Information Visit Information Visit Type Initial Evaluation Visit Start Time 15:05 Visit Stop Time 15:50 Total Visit Minutes 45 Visit Number 1 Evaluation Information Evaluation Date 03/12/23 PT-OP-B Current Condition Start: 03/12/23 15:01 Freq: Status: Active Protocol: Document 03/12/23 15:05 [facility] (Rec: 03/12/23 15:32 [facility] [id number]) Current Condition History of Current Condition Onset Date sx began after prostate surgery 09/2021 Current Complaints urinary frequency,urgency, nocturia x3,stress incontinence,incomplete empty History of Current Condition Marc is a 73 year old male with history of robotic assist prostatectomy 09/2021 at and has been leaking since surgery. Pelvic lymph nodes were involved and pathololgy showed extra prostatic extension, invasion of the bladder neck, seminal vesicle invasion, lymphovascular invasion as well as multifocal positive surgical margins. He then underwent radiation and finished his radiation . He hasn't noticed any difference with his leakage after radiation. He did kegels on his own after surgery. At times he will have to change pads 5-6 times per day. He is aware most of the time when he leaks. At night he wakes up 2-3 times to void and he makes it to the bathroom. He drinks coffee first in the am and then will have juice, he only gets water in when he drinks his pills once per day. Marc also notes his tailbone has been hurting x 2 months making it difficult to sit Treatment Goals Patient/Caregiver Goals Pt's goals include reducing urinary leakage and incontinence, decreasing tailbone pain Prior Functional Status Baseline Function- ADL's Independent Baseline Function- Mobility Independent Current Functional Impairments (Reported) Functional Limitations- ADL's pt is limited with sitting activities due to tailbone pain Functional Limitations- Other pt is not sleeping through the night due to waking up to void PT-OP-C Subjective Start: 03/12/23 15:01 Freq: Status: Active Protocol: Document 03/12/23 15:05 [facility] (Rec: 03/17/23 08:32 [facility] [id number]) Patient Questionnaires Pelvic Pain and Urgency/Frequency Patient Symptom Scale Pelvic Pain Score 4 OP-PT Pain Assessment Location tailbone Intensity 4 Scale Used Numeric (0 - 10) Pain Aggravating Factors Changing Position,Sitting PT-OP-I Pelvic Floor Start: 03/12/23 15:01 Freq: Status: Active Protocol: Document 03/12/23 15:05 [facility] (Rec: 03/17/23 08:29 [facility] [id number]) Pelvic Floor Assessment Urine Pelvic Floor Surgery Yes: prostatectomy/radiation Urinary Symptoms Urge Sensation,Incomplete Emptying Other Urinary Symptoms urinary incontinence, urgency, frequency, nocturia x 3, Leakage Size Large Leakage Cause Cough,Exercise,Lifting,Sneeze Leaks Per Day frequent Voiding Frequency every hour Nocturia 3 Pads Used In 24 Hours 6 SEMG (uV) Baseline 3.5 10 Second Contraction 4.2 Contraction Ability Voluntary Contraction Weak Voluntary Relaxation Weak Muscle Endurance (Seconds) 3 Comments Pelvic Floor Comments pt lacks both intensity of pelvic floor contraction as well as endurance, he is limited to 3-4 seconds only with contractions PT-OP-M Strength Start: 03/12/23 15:01 Freq: Status: Active Protocol: Document 03/12/23 15:05 [facility] (Rec: 03/17/23 08:31 [facility] [id number]) Trunk Strength Trunk Manual Muscle Testing Testing Position Supine Flexion 3+ Fair+ Core Stabilization Decreased TA activation in supine and pt tends to use upper abdominal wall PT-OP-Q Treatments Start: 08/03/23 15:01 Freq: Status: Active Protocol: Document 03/12/23 15:05 [facility] (Rec: 03/12/23 16:08 [facility] [id number]) Therapeutic Exercises Supine Exercises ball squeeze with pelvic floor contraction Reps/Minutes x 10 reps Comments adductor assist helped with pts ability to sustain pelvic floor contraction quick contractions Reps/Minutes x 10 Comments 6 uv max pelvic floor long holds Reps/Minutes x 10 reps Comments average 4.5 and max of 21 uv PT-OP-T Assessment and Plan Start: 03/12/23 15:01 Freq: Status: Active Protocol: Document 03/12/23 15:05 [facility] (Rec: 03/12/23 16:08 [facility] [id number]) Physical Therapy Assessment Rehab Potential Rehabilitation Potential Good Evaluation Complexity Number of Personal Factors/Comorbidities 0 Number of Body Systems Impaired 1-2 Clinical Presentation at Evaluation Stable Impairments Impairments Activity Tolerance,Soft Tissue Mobility,Strength,Tone Other Impairments urinary frequency, urgency, nocturia x 3, incomplete emptying Goals 3 Impairment Pelvic floor weakness and decreased endurance Short Term Goal (STG) Marc is able to sustain a pelvic floor contraction in supine x 10 seconds STG Duration 5 weeks Car Repairer Apprentice Goal (LTG) Marc is able to sustain a pelvic floor contraction in standing x 5 seconds LTG Duration 8 weeks+ 2 Impairment Nocturia with pt waking 3 times per night to void Mcc Goal (LTG) Marc is able to reduce his night time voiding to 1-2 times per night LTG Duration 8 weeks+ 1 Impairment urinary incontinency with pt going through 6 pads per day Mcc Goal (LTG) Marc reports a overall reduction in pad use during the day with decreased urinary incontinence LTG Duration 8 weeks+ Assessment Summary Assessment Marc is a 73 year old male referred to PT with chief complaints of urinary stress incontinence, urinary frequency, urgency, nocturiax 3, incomplete emtpying following prostatectomy and radiation. His surgery was perfomed at sep 2021 and was robotic assist. He then underwent radiation and this was completed 09/03/2022. Marc also reports a new onset of tailbone pain that started approx 2 months ago. Marc notes increased leakage with exercise as well as with light activity when he is up. He notes leaking occurs in all positions. Bladder irritants were reviewed today and Marc is drinking approx 4 cups of coffee per day and juice. He notes he doesn't usually drink water except when taking his medications. I reviewed bladder irritants with him and he was given a bladder diary. With pelvic floor exam EMG biofeedback was used. He had a elevated tone initially at 3 .5 uv. With verbal cueing he was able to fully relax his pelvic floor. His average on EMG biofeedback was 4.5 uv and he had a max of 21 uv. He lacks endurance of his pelvic floor and he fatigues quickly. Marc notes he had been doing kegels on his own but only quick contractions. He was started with 5 second holds for home and also shown adductor assist. This was helpful to him to be able to facilitate more of the anterior pelvic floor. Marc is a good candidate for PT for pelvic floor strengthening . Physical Therapy Plan Frequency and Duration Frequency of Treatment 1x/Week Duration of treatment (weeks) 8 Plan of Care Start Date 03/12/23 Plan of Care End Date 05/07/23 Therapeutic Interventions Therapeutic Interventions Home Exercise Program, Neuromuscular Re-education, Patient/Caregiver Education, Self-Care/Home Management,Soft Tissue Mobilization, Therapeutic Exercises Modalities Biofeedback Next Visit Focus/Plan Next Note Type Treatment Note Next Visit Plan review exercises that were started today as well as bladder diary, progress pelvic floor exercises next visit to include hip IR/ER
--- NOTE | 2023-03-17 08:35 | PT.OPPOC ---
Physical, Occupational & Speech Therapy At [facility] Current Diagnoses Malignant neoplasm of prostate (03/12/23) Stress incontinence (female) (male) (03/12/23) Pelvic muscle wasting (03/12/23) Unspecified urinary incontinence (03/12/23) Nocturia (03/12/23) Feeling of incomplete bladder emptying (03/12/23) Visit Care Team Role Provider Type Basil Terrazas DO Attending Provider Non-Staff Referring Provider Specialty: Family Practice Address: [address] [place] [address], [id number] Email: Plan Of Care PT-OP-T Assessment and Plan Start: 03/12/23 15:01 Freq: Status: Active Protocol: Document 03/12/23 15:05 [facility] OF [facility] (Rec: 03/12/23 16:08 [facility] [id number]) Physical Therapy Assessment Rehab Potential Rehabilitation Potential Good Evaluation Complexity Number of Personal Factors/Comorbidities 0 Number of Body Systems Impaired 1-2 Clinical Presentation at Evaluation Stable Impairments Impairments Activity Tolerance,Soft Tissue Mobility,Strength,Tone Other Impairments urinary frequency, urgency, nocturia x 3, incomplete emptying Goals 3 Impairment Pelvic floor weakness and decreased endurance Short Term Goal (STG) Marc is able to sustain a pelvic floor contraction in supine x 10 seconds STG Duration 5 weeks Tile Presser Goal (LTG) Marc is able to sustain a pelvic floor contraction in standing x 5 seconds LTG Duration 8 weeks+ 2 Impairment Nocturia with pt waking 3 times per night to void Tile Presser Goal (LTG) Marc is able to reduce his night time voiding to 1-2 times per night LTG Duration 8 weeks+ 1 Impairment urinary incontinency with pt going through 6 pads per day Tile Presser Goal (LTG) Marc reports a overall reduction in pad use during the day with decreased urinary incontinence LTG Duration 8 weeks+ Assessment Summary Assessment Marc is a 73 year old male referred to PT with chief complaints of urinary stress incontinence, urinary frequency, urgency, nocturia 3, incomplete emptying following prostatectomy and radiation. His surgery was performed at sep 2021 and was robotic assist. He then underwent radiation and this was completed 09/03/2022. Marc also reports a new onset of tailbone pain that started approx 2 months ago. Marc notes increased leakage with exercise as well as with light activity when he is up. He notes leaking occurs in all positions. Bladder irritants were reviewed today and Marc is drinking approx 4 cups of coffee per day and juice. He notes he doesn't usually drink water except when taking his medications. I reviewed bladder irritants with him and he was given a bladder diary. With pelvic floor exam EMG biofeedback was used. He had a elevated tone initially at 3 .5 uv. With verbal cueing he was able to fully relax his pelvic floor. His average on EMG biofeedback was 4.5 uv and he had a max of 21 uv. He lacks endurance of his pelvic floor and he fatigues quickly. Marc notes he had been doing kegels on his own but only quick contractions. He was started with 5 second holds for home and also shown adductor assist. This was helpful to him to be able to facilitate more of the anterior pelvic floor. Marc is a good candidate for PT for pelvic floor strengthening . Physical Therapy Plan Frequency and Duration Frequency of Treatment 1x/Week Duration of treatment (weeks) 8 Plan of Care Start Date 03/12/23 Plan of Care End Date 05/07/23 Therapeutic Interventions Therapeutic Interventions Home Exercise Program, Neuromuscular Re-education, Patient/Caregiver Education, Self-Care/Home Management,Soft Tissue Mobilization, Therapeutic Exercises Modalities Biofeedback Next Visit Focus/Plan Next Note Type Treatment Note Next Visit Plan review exercises that were started today as well as bladder diary, progress pelvic floor exercises next visit to include hip IR/ER Plan of Care Dates Plan of Care Start Date 03/12/23 Plan of Care End Date 05/07/23 Electronically Signed by: Cristal Mendoza, PT 03/17/23 0895 If you are in agreement with this Plan of Care, please return a signed and dated copy. I have reviewed this Plan of Care and certify that the skilled therapy services above are required to meet the patient?s needs. Physician Signature Date Printed Name and Credentials Clinical Instructor Signature Printed Name and Credentials
--- NOTE | 2023-03-26 16:06 | PT.OTN ---
Current Diagnoses Malignant neoplasm of prostate (03/26/23) Stress incontinence (female) (male) (03/26/23) Unspecified urinary incontinence (03/26/23) Nocturia (03/26/23) Feeling of incomplete bladder emptying (03/26/23) Physical Therapy Treatment Note PT-OP-A Visit Information Start: 03/12/23 15:01 Freq: Status: Active Protocol: Document 03/26/23 08:02 [facility] (Rec: 03/26/23 08:43 [facility] [id number]) Out-Patient Physical Therapy Visit Information Visit Information Visit Type Treatment Note Visit Start Time 08:02 Visit Stop Time 08:45 Total Visit Minutes 43 Visit Number 2 PT-OP-B Current Condition Start: 03/12/23 15:01 Freq: Status: Active Protocol: Document 03/12/23 15:05 [facility] (Rec: 03/12/23 15:32 [facility] [id number]) Current Condition History of Current Condition Onset Date sx began after prostate surgery 09/2021 Current Complaints urinary frequency,urgency, nocturia x3,stress incontinence,incomplete empty History of Current Condition Marc is a 73 year old male with history of robotic assist prostatectomy 09/2021 at and has been leaking since surgery. Pelvic lymph nodes were involved and pathololgy showed extra prostatic extension, invasion of the bladder neck, seminal vesicle invasion, lymphovascular invasion as well as multifocal positive surgical margins. He then underwent radiation and finished his radiation . He hasn't noticed any difference with his leakage after radiation. He did kegels on his own after surgery. At times he will have to change pads 5-6 times per day. He is aware most of the time when he leaks. At night he wakes up 2-3 times to void and he makes it to the bathroom. He drinks coffee first in the am and then will have juice, he only gets water in when he drinks his pills once per day. Marc also notes his tailbone has been hurting x 2 months making it difficult to sit Treatment Goals Patient/Caregiver Goals Pt's goals include reducing urinary leakage and incontinence, decreasing tailbone pain Prior Functional Status Baseline Function- ADL's Independent Baseline Function- Mobility Independent Current Functional Impairments (Reported) Functional Limitations- ADL's pt is limited with sitting activities due to tailbone pain Functional Limitations- Other pt is not sleeping through the night due to waking up to void PT-OP-C Subjective Start: 03/12/23 15:01 Freq: Status: Active Protocol: Document 03/26/23 08:02 [facility] (Rec: 03/26/23 08:43 [facility] [id number]) OP-PT Subjective Patient Comments Patient Comments pt notes he has been very good about doing his exercises, sometimes he feels like it is getting better when he isn't as active but other times is leaking at rest. He is doing PT for his legs and will be getting a MRI due to increased pain levels down his legs. With a pain med he slept through the night until 3 and woke up dry PT-OP-I Pelvic Floor Start: 03/12/23 15:01 Freq: Status: Active Protocol: Document 03/12/23 15:05 [facility] (Rec: 03/17/23 08:29 [facility] [id number]) Pelvic Floor Assessment Urine Pelvic Floor Surgery Yes: prostatectomy/radiation Urinary Symptoms Urge Sensation,Incomplete Emptying Other Urinary Symptoms urinary incontinence, urgency, frequency, nocturia x 3, Leakage Size Large Leakage Cause Cough,Exercise,Lifting,Sneeze Leaks Per Day frequent Voiding Frequency every hour Nocturia 3 Pads Used In 24 Hours 6 SEMG (uV) Baseline 3.5 10 Second Contraction 4.2 Contraction Ability Voluntary Contraction Weak Voluntary Relaxation Weak Muscle Endurance (Seconds) 3 Comments Pelvic Floor Comments pt lacks both intensity of pelvic floor contraction as well as endurance, he is limited to 3-4 seconds only with contractions PT-OP-M Strength Start: 03/12/23 15:01 Freq: Status: Active Protocol: Document 03/12/23 15:05 [facility] (Rec: 03/17/23 08:31 [facility] [id number]) Trunk Strength Trunk Manual Muscle Testing Testing Position Supine Flexion 3+ Fair+ Core Stabilization Decreased TA activation in supine and pt tends to use upper abdominal wall PT-OP-Q Treatments Start: 03/12/23 15:01 Freq: Status: Active Protocol: Document 03/26/23 08:02 [facility] (Rec: 03/26/23 08:43 [facility] [id number]) Therapeutic Exercises Supine Exercises EMG templates for eccentric control Reps/Minutes for eccentric control and coordination ball squeeze with pelvic floor contraction Reps/Minutes x 10 reps Comments adductor assist helped with pts ability to sustain pelvic floor contraction quick contractions Reps/Minutes x 10 Comments 5.7 uv max pelvic floor long holds Reps/Minutes x 10 reps Comments able to rest at baseline, 3.3 and 9.6 max Neuro Re-Education Treatment Other Activities NMES with rectal sensor for the pelvic floor Reps/Duration 10 min Comments pt went to level 10 with NMES PT-OP-T Assessment and Plan Start: 03/12/23 15:01 Freq: Status: Active Protocol: Document 03/26/23 08:02 [facility] (Rec: 03/26/23 08:43 [facility] [id number]) Physical Therapy Assessment Goals 3 Impairment Pelvic floor weakness and decreased endurance Short Term Goal (STG) Marc is able to sustain a pelvic floor contraction in supine x 10 seconds STG Duration 5 weeks [employer] Goal (LTG) Marc is able to sustain a pelvic floor contraction in standing x 5 seconds LTG Duration 8 weeks+ 2 Impairment Nocturia with pt waking 3 times per night to void [employer] Goal (LTG) Marc is able to reduce his night time voiding to 1-2 times per night LTG Duration 8 weeks+ 1 Impairment urinary incontinency with pt going through 6 pads per day Fdc Goal (LTG) Marc reports a overall reduction in pad use during the day with decreased urinary incontinence LTG Duration 8 weeks+ Assessment Summary Assessment Marc was able to sleep until 3:00 am with pain med but was not wet when waking up. Leaking is better with less activity and work related activities such as riding on the tractor increase leakage. I added in NMES today and pt tolerated this well Physical Therapy Plan Frequency and Duration Frequency of Treatment 1x/Week Duration of treatment (weeks) 8 Plan of Care Start Date 03/12/23 Plan of Care End Date 05/07/23 Therapeutic Interventions Therapeutic Interventions Home Exercise Program, Neuromuscular Re-education, Patient/Caregiver Education, Self-Care/Home Management,Soft Tissue Mobilization, Therapeutic Exercises Modalities Biofeedback Next Visit Focus/Plan Next Note Type Treatment Note Next Visit Plan continue to review bladder irritants and diary and work on strengthening of the hips as well as pelvic floor.
--- NOTE | 2023-04-22 13:04 | PT.OTN ---
Current Diagnoses Malignant neoplasm of prostate (04/22/23) Stress incontinence (female) (male) (04/22/23) Unspecified urinary incontinence (04/22/23) Nocturia (04/22/23) Feeling of incomplete bladder emptying (04/22/23) Physical Therapy Treatment Note PT-OP-A Visit Information Start: 03/12/23 15:01 Freq: Status: Active Protocol: Document 04/22/23 07:59 [facility] (Rec: 04/22/23 08:55 [facility] [id number]) Out-Patient Physical Therapy Visit Information Visit Information Visit Type Treatment Note Visit Start Time 08:00 Visit Stop Time 08:45 Total Visit Minutes 45 Visit Number 3 PT-OP-B Current Condition Start: 03/12/23 15:01 Freq: Status: Active Protocol: Document 03/12/23 15:05 [facility] (Rec: 03/12/23 15:32 [facility] [id number]) Current Condition History of Current Condition Onset Date sx began after prostate surgery 09/2021 Current Complaints urinary frequency,urgency, nocturia x3,stress incontinence,incomplete empty History of Current Condition Marc is a 73 year old male with history of robotic assist prostatectomy 09/2021 at and has been leaking since surgery. Pelvic lymph nodes were involved and pathololgy showed extra prostatic extension, invasion of the bladder neck, seminal vesicle invasion, lymphovascular invasion as well as multifocal positive surgical margins. He then underwent radiation and finished his radiation . He hasn't noticed any difference with his leakage after radiation. He did kegels on his own after surgery. At times he will have to change pads 5-6 times per day. He is aware most of the time when he leaks. At night he wakes up 2-3 times to void and he makes it to the bathroom. He drinks coffee first in the am and then will have juice, he only gets water in when he drinks his pills once per day. Marc also notes his tailbone has been hurting x 2 months making it difficult to sit Treatment Goals Patient/Caregiver Goals Pt's goals include reducing urinary leakage and incontinence, decreasing tailbone pain Prior Functional Status Baseline Function- ADL's Independent Baseline Function- Mobility Independent Current Functional Impairments (Reported) Functional Limitations- ADL's pt is limited with sitting activities due to tailbone pain Functional Limitations- Other pt is not sleeping through the night due to waking up to void PT-OP-C Subjective Start: 03/12/23 15:01 Freq: Status: Active Protocol: Document 04/22/23 07:59 [facility] (Rec: 04/22/23 08:55 [facility] [id number]) OP-PT Subjective Patient Comments Patient Comments pt notes he is scheduled for a MRI next thursday. His nerve pain in his legs is much worse since his radiation. He feels the pain in the anterior hips and he describes it as a ache. The medication he is taking for is it working less and less. He is waking up 2- 3 times per night to void and then waking up dry but leakage is the same during the day. He is changing his pads a average of 4 times Patient Reported Progress Same PT-OP-I Pelvic Floor Start: 03/12/23 15:01 Freq: Status: Active Protocol: Document 03/12/23 15:05 [facility] (Rec: 03/17/23 08:29 [facility] [id number]) Pelvic Floor Assessment Urine Pelvic Floor Surgery Yes: prostatectomy/radiation Urinary Symptoms Urge Sensation,Incomplete Emptying Other Urinary Symptoms urinary incontinence, urgency, frequency, nocturia x 3, Leakage Size Large Leakage Cause Cough,Exercise,Lifting,Sneeze Leaks Per Day frequent Voiding Frequency every hour Nocturia 3 Pads Used In 24 Hours 6 SEMG (uV) Baseline 3.5 10 Second Contraction 4.2 Contraction Ability Voluntary Contraction Weak Voluntary Relaxation Weak Muscle Endurance (Seconds) 3 Comments Pelvic Floor Comments pt lacks both intensity of pelvic floor contraction as well as endurance, he is limited to 3-4 seconds only with contractions PT-OP-M Strength Start: 03/12/23 15:01 Freq: Status: Active Protocol: Document 03/12/23 15:05 [facility] (Rec: 03/17/23 08:31 [facility] [id number]) Trunk Strength Trunk Manual Muscle Testing Testing Position Supine Flexion 3+ Fair+ Core Stabilization Decreased TA activation in supine and pt tends to use upper abdominal wall PT-OP-Q Treatments Start: 03/12/23 15:01 Freq: Status: Active Protocol: Document 04/22/23 07:59 [facility] (Rec: 04/22/23 08:55 [facility] [id number]) Therapeutic Exercises Supine Exercises iliopsoas stretch Reps/Minutes hold 1-2 minutes single knee to chest stretch Reps/Minutes hold 1 min quick contractions Comments 28.9 max pelvic floor long holds Reps/Minutes x 10 reps Comments average of 8 and max of 21 Manual Therapy Treatment Soft Tissue Mobilization scar tissue mobilization suprapubic fascia Mobilization Type Myofascial Release Comments right greater than left scar tissue and some edema noted in the right lower abdominal wall Neuro Re-Education Treatment Other Activities NMES with rectal sensor for the pelvic floor Reps/Duration 10 Comments NMES for the pelvic floor with rectal sensor for neuro re-ed of the pelvic floor PT-OP-T Assessment and Plan Start: 03/12/23 15:01 Freq: Status: Active Protocol: Document 04/22/23 07:59 [facility] (Rec: 04/22/23 08:55 [facility] [id number]) Physical Therapy Assessment Goals 3 Impairment Pelvic floor weakness and decreased endurance Short Term Goal (STG) Marc is able to sustain a pelvic floor contraction in supine x 10 seconds STG Duration 5 weeks Intermediate Goal (LTG) Marc is able to sustain a pelvic floor contraction in standing x 5 seconds LTG Duration 8 weeks+ 2 Impairment Nocturia with pt waking 3 times per night to void Intermediate Goal (LTG) Marc is able to reduce his night time voiding to 1-2 times per night LTG Duration 8 weeks+ 1 Impairment urinary incontinency with pt going through 6 pads per day Multiple Knife Edge Trimmer Operator Goal (LTG) Marc reports a overall reduction in pad use during the day with decreased urinary incontinence LTG Duration 8 weeks+ Assessment Summary Assessment Marc reports that he has had constipation issues due to his pain meds. Time was spent on bowel education to help improve bowel movements and he was educated on how constipation can effect his baldder. I began MFR techniques today for the suprapubic fascia, right sided swelling noted. Strength of the pelvic floor was improved today on EMG biofeedback. Marc was experiencing muscle spasms and twitches in his legs today from nerve pain Physical Therapy Plan Frequency and Duration Frequency of Treatment 1x/Week Duration of treatment (weeks) 8 Plan of Care Start Date 03/12/23 Plan of Care End Date 05/07/23 Therapeutic Interventions Therapeutic Interventions Home Exercise Program, Neuromuscular Re-education, Patient/Caregiver Education, Self-Care/Home Management,Soft Tissue Mobilization, Therapeutic Exercises Modalities Biofeedback Next Visit Focus/Plan Next Note Type Progress Note Next Visit Plan MFR over the bladder and suprapubic fascia, continue with NMES and pelvic floor strengthenin. PT should have his MRI results by next visit as well
--- NOTE | 2023-06-24 12:44 | PT.OTN ---
Current Diagnoses Malignant neoplasm of prostate (06/24/23) Stress incontinence (female) (male) (06/24/23) Unspecified urinary incontinence (06/24/23) Nocturia (06/24/23) Feeling of incomplete bladder emptying (06/24/23) Physical Therapy Treatment Note PT-OP-A Visit Information Start: 03/12/23 15:01 Freq: Status: Active Protocol: Document 06/24/23 10:42 [facility] (Rec: 06/24/23 11:21 [facility] [id number]) Out-Patient Physical Therapy Visit Information Visit Information Visit Type Progress Note Visit Start Time 10:40 Visit Stop Time 11:20 Total Visit Minutes 40 Visit Number 4 PT-OP-B Current Condition Start: 03/12/23 15:01 Freq: Status: Active Protocol: Document 03/12/23 15:05 [facility] (Rec: 03/12/23 15:32 [facility] [id number]) Current Condition History of Current Condition Onset Date sx began after prostate surgery 09/2021 Current Complaints urinary frequency,urgency, nocturia x3,stress incontinence,incomplete empty History of Current Condition Marc is a 73 year old male with history of robotic assist prostatectomy 09/2021 at and has been leaking since surgery. Pelvic lymph nodes were involved and pathololgy showed extra prostatic extension, invasion of the bladder neck, seminal vesicle invasion, lymphovascular invasion as well as multifocal positive surgical margins. He then underwent radiation and finished his radiation . He hasn't noticed any difference with his leakage after radiation. He did kegels on his own after surgery. At times he will have to change pads 5-6 times per day. He is aware most of the time when he leaks. At night he wakes up 2-3 times to void and he makes it to the bathroom. He drinks coffee first in the am and then will have juice, he only gets water in when he drinks his pills once per day. Marc also notes his tailbone has been hurting x 2 months making it difficult to sit Treatment Goals Patient/Caregiver Goals Pt's goals include reducing urinary leakage and incontinence, decreasing tailbone pain Prior Functional Status Baseline Function- ADL's Independent Baseline Function- Mobility Independent Current Functional Impairments (Reported) Functional Limitations- ADL's pt is limited with sitting activities due to tailbone pain Functional Limitations- Other pt is not sleeping through the night due to waking up to void PT-OP-C Subjective Start: 03/12/23 15:01 Freq: Status: Active Protocol: Document 06/24/23 10:42 [facility] (Rec: 06/24/23 11:21 [facility] [id number][facility] OP-PT Subjective Patient Comments Patient Comments Marc returns to PT today after not being seen since due to being out of town . Marc reports MRI was done and he had a nerve conduction test and will see his doctor next week to review all of this. He is averaging 7-8 pads per day. Marc notes his skin became irritated as he had gone hunting and was't able to do his exercises or change his pad. He is dry in the am he is waking up 4 times per night. He reports his back has been really sore and he has not done his stretches or pelvic floor exercises PT-OP-I Pelvic Floor Start: 03/12/23 15:01 Freq: Status: Active Protocol: Document 03/12/23 15:05 [facility] (Rec: 03/17/23 08:29 [facility] [id number]) Pelvic Floor Assessment Urine Pelvic Floor Surgery Yes: prostatectomy/radiation Urinary Symptoms Urge Sensation,Incomplete Emptying Other Urinary Symptoms urinary incontinence, urgency, frequency, nocturia x 3, Leakage Size Large Leakage Cause Cough,Exercise,Lifting,Sneeze Leaks Per Day frequent Voiding Frequency every hour Nocturia 3 Pads Used In 24 Hours 6 SEMG (uV) Baseline 3.5 10 Second Contraction 4.2 Contraction Ability Voluntary Contraction Weak Voluntary Relaxation Weak Muscle Endurance (Seconds) 3 Comments Pelvic Floor Comments pt lacks both intensity of pelvic floor contraction as well as endurance, he is limited to 3-4 seconds only with contractions PT-OP-M Strength Start: 03/12/23 15:01 Freq: Status: Active Protocol: Document 03/12/23 15:05 [facility] (Rec: 03/17/23 08:31 [facility] [id number]) Trunk Strength Trunk Manual Muscle Testing Testing Position Supine Flexion 3+ Fair+ Core Stabilization Decreased TA activation in supine and pt tends to use upper abdominal wall PT-OP-Q Treatments Start: 03/12/23 15:01 Freq: Status: Active Protocol: Document 06/24/23 10:42 [facility] (Rec: 06/24/23 11:21 [facility] [id number]) Therapeutic Exercises Supine Exercises lower trunk rotation Reps/Minutes x 10 reps iliopsoas stretch Reps/Minutes hold 1-2 minutes single knee to chest stretch Reps/Minutes hold 1 min ball squeeze with pelvic floor contraction Reps/Minutes x 10 reps Comments adductor assist helped with pts ability to sustain pelvic floor contraction quick contractions Reps/Minutes x 10 reps holding 2 seconds and relaxing 2 seconds Manual Therapy Treatment Soft Tissue Mobilization worked on MFR over the right quad with roller Body Location B quads Mobilization Type Instrument Assisted,Myofascial Release Comments Marc tolerated this well and was educated on using his rolling pin at home to help relax the quads. He is tighter right greater than left and is experiencing some patella tendon pain on the right side PT-OP-T Assessment and Plan Start: 03/12/23 15:01 Freq: Status: Active Protocol: Document 06/24/23 10:42 [facility] (Rec: 06/24/23 12:42 [facility] [id number]) Physical Therapy Assessment Goals 3 Impairment Pelvic floor weakness and decreased endurance Short Term Goal (STG) Marc is able to sustain a pelvic floor contraction in supine x 10 seconds Good progress STG Duration 5 weeks Usp Goal (LTG) Marc is able to sustain a pelvic floor contraction in standing x 5 seconds GOAL NOT YET MET LTG Duration 8 weeks+ 2 Impairment Nocturia with pt waking 3 times per night to void Usp Goal (LTG) Marc is able to reduce his night time voiding to 1-2 times per night No change LTG Duration 8 weeks+ 1 Impairment urinary incontinency with pt going through 6 pads per day Usp Goal (LTG) Marc reports a overall reduction in pad use during the day with decreased urinary incontinence No change LTG Duration 8 weeks+ Assessment Summary Assessment Marc returns to PT after not being seen x 2 months due to being out of town. He has been experiencing a great deal of LBP and radicular symptoms down his LE. He notes that with the pain it is much more difficult to contract his pelvic floor. Time was spend today on his stretches for his hips and low back first prior to pelvic floor exercises and he did much better with this. He does see his MD this next week to consult on both his MRI as well as nerve conduction test. He would benefit from continued PT Physical Therapy Plan Frequency and Duration Frequency of Treatment 1x/Week Duration of treatment (weeks) 8 Plan of Care Start Date 06/24/23 Plan of Care End Date 09/16/23 Next Visit Focus/Plan Next Note Type Treatment Note Next Visit Plan MFR over the bladder and suprapubic fascia, continue with NMES and pelvic floor strengthenin. PT should have his MRI results by next visit as well
--- NOTE | 2023-06-24 12:44 | PT.OPPOC ---
Physical, Occupational & Speech Therapy At [facility] Current Diagnoses Malignant neoplasm of prostate (06/24/23) Stress incontinence (female) (male) (06/24/23) Unspecified urinary incontinence (06/24/23) Nocturia (06/24/23) Feeling of incomplete bladder emptying (06/24/23) Visit Care Team Role Provider Type Basil Terrazas DO Attending Provider Non-Staff Referring Provider Specialty: Family Practice Address: [address] [place] [address], [id number] Email: Plan Of Care PT-OP-T Assessment and Plan Start: 03/12/23 15:01 Freq: Status: Active Protocol: Document 06/24/23 10:42 [facility] (Rec: 06/24/23 12:42 [facility] [id number]) Physical Therapy Assessment Goals 3 Impairment Pelvic floor weakness and decreased endurance Short Term Goal (STG) Marc is able to sustain a pelvic floor contraction in supine x 10 seconds Good progress STG Duration 5 weeks [employer] Executive Goal (LTG) Marc is able to sustain a pelvic floor contraction in standing x 5 seconds GOAL NOT YET MET LTG Duration 8 weeks+ 2 Impairment Nocturia with pt waking 3 times per night to void Mcfp Goal (LTG) Marc is able to reduce his night time voiding to 1-2 times per night No change LTG Duration 8 weeks+ 1 Impairment urinary incontinency with pt going through 6 pads per day [employer] Goal (LTG) Marc reports a overall reduction in pad use during the day with decreased urinary incontinence No change LTG Duration 8 weeks+ Assessment Summary Assessment Marc returns to PT after not being seen x 2 months due to being out of town. He has been experiencing a great deal of LBP and radicular symptoms down his LE. He notes that with the pain it is much more difficult to contract his pelvic floor. Time was spend today on his stretches for his hips and low back first prior to pelvic floor exercises and he did much better with this. He does see his MD this next week to consult on both his MRI as well as nerve conduction test. He would benefit from continued PT Physical Therapy Plan Frequency and Duration Frequency of Treatment 1x/Week Duration of treatment (weeks) 8 Plan of Care Start Date 06/24/23 Plan of Care End Date 09/16/23 Next Visit Focus/Plan Next Note Type Treatment Note Next Visit Plan MFR over the bladder and suprapubic fascia, continue with NMES and pelvic floor strengthening. PT should have his MRI results by next visit as well Plan of Care Dates Plan of Care Start Date 06/24/23 Plan of Care End Date 09/16/23 Electronically Signed by: Cristal Mendoza, PT 06/24/23 5921 If you are in agreement with this Plan of Care, please return a signed and dated copy. I have reviewed this Plan of Care and certify that the skilled therapy services above are required to meet the patient?s needs. Physician Signature Date Printed Name and Credentials Clinical Instructor Signature Printed Name and Credentials
--- NOTE | 2023-07-07 16:48 | PT.OTN ---
Current Diagnoses Malignant neoplasm of prostate (07/07/23) Stress incontinence (female) (male) (07/07/23) Unspecified urinary incontinence (07/07/23) Nocturia (07/07/23) Feeling of incomplete bladder emptying (07/07/23) Physical Therapy Treatment Note PT-OP-A Visit Information Start: 03/12/23 15:01 Freq: Status: Active Protocol: Document 07/07/23 08:13 [facility] (Rec: 07/07/23 08:58 [facility] [id number]) Out-Patient Physical Therapy Visit Information Visit Information Visit Type Treatment Note Visit Start Time 08:15 Visit Stop Time 09:00 Total Visit Minutes 45 Visit Number 5 PT-OP-B Current Condition Start: 03/12/23 15:01 Freq: Status: Active Protocol: Document 03/12/23 15:05 [facility] (Rec: 03/12/23 15:32 [facility] [id number]) Current Condition History of Current Condition Onset Date sx began after prostate surgery 09/2021 Current Complaints urinary frequency,urgency, nocturia x3,stress incontinence,incomplete empty History of Current Condition Marc is a 73 year old male with history of robotic assist prostatectomy 09/2021 at and has been leaking since surgery. Pelvic lymph nodes were involved and pathololgy showed extra prostatic extension, invasion of the bladder neck, seminal vesicle invasion, lymphovascular invasion as well as multifocal positive surgical margins. He then underwent radiation and finished his radiation . He hasn't noticed any difference with his leakage after radiation. He did kegels on his own after surgery. At times he will have to change pads 5-6 times per day. He is aware most of the time when he leaks. At night he wakes up 2-3 times to void and he makes it to the bathroom. He drinks coffee first in the am and then will have juice, he only gets water in when he drinks his pills once per day. Marc also notes his tailbone has been hurting x 2 months making it difficult to sit Treatment Goals Patient/Caregiver Goals Pt's goals include reducing urinary leakage and incontinence, decreasing tailbone pain Prior Functional Status Baseline Function- ADL's Independent Baseline Function- Mobility Independent Current Functional Impairments (Reported) Functional Limitations- ADL's pt is limited with sitting activities due to tailbone pain Functional Limitations- Other pt is not sleeping through the night due to waking up to void PT-OP-C Subjective Start: 03/12/23 15:01 Freq: Status: Active Protocol: Document 07/07/23 08:13 [facility] (Rec: 07/07/23 08:58 [facility] [id number]) OP-PT Subjective Patient Comments Patient Comments Pt reports that his doctor notes that there is no nerves affected with the nerve conduction study, he describes his leg pain as a ache that makes his leg shake. He does take ropinrrole and this puts him to sleep and helps with the pain, he also takes gabaoentin. Marc states he wakes up with right knee pain. Marc notes he is waking up dry and its mainly with strenous activity that he is leaking now. PT-OP-I Pelvic Floor Start: 03/12/23 15:01 Freq: Status: Active Protocol: Document 03/12/23 15:05 [facility] (Rec: 03/17/23 08:29 [facility] [id number]) Pelvic Floor Assessment Urine Pelvic Floor Surgery Yes: prostatectomy/radiation Urinary Symptoms Urge Sensation,Incomplete Emptying Other Urinary Symptoms urinary incontinence, urgency, frequency, nocturia x 3, Leakage Size Large Leakage Cause Cough,Exercise,Lifting,Sneeze Leaks Per Day frequent Voiding Frequency every hour Nocturia 3 Pads Used In 24 Hours 6 SEMG (uV) Baseline 3.5 10 Second Contraction 4.2 Contraction Ability Voluntary Contraction Weak Voluntary Relaxation Weak Muscle Endurance (Seconds) 3 Comments Pelvic Floor Comments pt lacks both intensity of pelvic floor contraction as well as endurance, he is limited to 3-4 seconds only with contractions PT-OP-M Strength Start: 03/12/23 15:01 Freq: Status: Active Protocol: Document 03/12/23 15:05 [facility] (Rec: 03/17/23 08:31 [facility] [id number]) Trunk Strength Trunk Manual Muscle Testing Testing Position Supine Flexion 3+ Fair+ Core Stabilization Decreased TA activation in supine and pt tends to use upper abdominal wall PT-OP-Q Treatments Start: 03/12/23 15:01 Freq: Status: Active Protocol: Document 07/07/23 08:13 [facility] (Rec: 07/07/23 08:58 [facility] [id number]) Therapeutic Exercises Supine Exercises quad stretch Supine Exercise Name sidelying quad stretch Comments 2 reps holding 30 sec each iliopsoas stretch Reps/Minutes hold 1-2 minutes single knee to chest stretch Reps/Minutes hold 1 min pelvic floor long holds Reps/Minutes x 10 reps Comments 13 average and max of 21 Standing Exercises standing adductor stretch with weight shifts Reps/Minutes hold 30 sec to 1 min each side PT-OP-T Assessment and Plan Start: 03/12/23 15:01 Freq: Status: Active Protocol: Document 07/07/23 08:13 [facility] (Rec: 07/07/23 08:58 [facility] [id number]) Physical Therapy Assessment Goals 3 Impairment Pelvic floor weakness and decreased endurance Short Term Goal (STG) Marc is able to sustain a pelvic floor contraction in supine x 10 seconds Good progress STG Duration 5 weeks [facility] Goal (LTG) Marc is able to sustain a pelvic floor contraction in standing x 5 seconds GOAL NOT YET MET LTG Duration 8 weeks+ 2 Impairment Nocturia with pt waking 3 times per night to void [facility] Goal (LTG) Marc is able to reduce his night time voiding to 1-2 times per night No change LTG Duration 8 weeks+ 1 Impairment urinary incontinency with pt going through 6 pads per day [facility] Goal (LTG) Marc reports a overall reduction in pad use during the day with decreased urinary incontinence No change LTG Duration 8 weeks+ Assessment Summary Assessment Time was spent today reviewing stretches for the iliopsoas and quad as Marc is still experiencing the anterior hip pain made worse with sitting low in his car. He notes pain is not as severe if sitting high up in his truck. He is also showing improvements with pelvic floor strengthening as well on EMG biofeedback today after stretching. Physical Therapy Plan Frequency and Duration Frequency of Treatment 1x/Week Duration of treatment (weeks) 8 Plan of Care Start Date 06/24/23 Plan of Care End Date 09/16/23 Therapeutic Interventions Therapeutic Interventions Home Exercise Program, Neuromuscular Re-education, Patient/Caregiver Education, Self-Care/Home Management,Soft Tissue Mobilization, Therapeutic Exercises Modalities Biofeedback Next Visit Focus/Plan Next Note Type Treatment Note Next Visit Plan continue to work on releasing the adductors and iliopsoas and strengthening for pelvic floor, trial of MFR over the bladder and suprapubic fascia
--- NOTE | 2023-09-15 14:00 | PT.OTN ---
Current Diagnoses Malignant neoplasm of prostate (09/15/23) Stress incontinence (female) (male) (09/15/23) Unspecified urinary incontinence (09/15/23) Nocturia (09/15/23) Feeling of incomplete bladder emptying (09/15/23) Physical Therapy Treatment Note PT-OP-A Visit Information Start: 03/12/23 15:01 Freq: Status: Active Protocol: Document 09/15/23 09:50 [facility] (Rec: 09/15/23 10:35 [facility] [id number]) Out-Patient Physical Therapy Visit Information Visit Information Visit Type Treatment Note Visit Start Time 09:50 Visit Stop Time 10:35 Visit Number 6 PT-OP-B Current Condition Start: 03/12/23 15:01 Freq: Status: Active Protocol: Document 03/12/23 15:05 [facility] (Rec: 03/12/23 15:32 [facility] [id number]) Current Condition History of Current Condition Onset Date sx began after prostate surgery 09/2021 Current Complaints urinary frequency,urgency, nocturia x3,stress incontinence,incomplete empty History of Current Condition Marc is a 73 year old male with history of robotic assist prostatectomy 09/2021 at and has been leaking since surgery. Pelvic lymph nodes were involved and pathololgy showed extra prostatic extension, invasion of the bladder neck, seminal vesicle invasion, lymphovascular invasion as well as multifocal positive surgical margins. He then underwent radiation and finished his radiation . He hasn't noticed any difference with his leakage after radiation. He did kegels on his own after surgery. At times he will have to change pads 5-6 times per day. He is aware most of the time when he leaks. At night he wakes up 2-3 times to void and he makes it to the bathroom. He drinks coffee first in the am and then will have juice, he only gets water in when he drinks his pills once per day. Marc also notes his tailbone has been hurting x 2 months making it difficult to sit Treatment Goals Patient/Caregiver Goals Pt's goals include reducing urinary leakage and incontinence, decreasing tailbone pain Prior Functional Status Baseline Function- ADL's Independent Baseline Function- Mobility Independent Current Functional Impairments (Reported) Functional Limitations- ADL's pt is limited with sitting activities due to tailbone pain Functional Limitations- Other pt is not sleeping through the night due to waking up to void PT-OP-C Subjective Start: 03/12/23 15:01 Freq: Status: Active Protocol: Document 09/15/23 09:50 [facility] (Rec: 09/15/23 10:35 [facility] [id number]) OP-PT Subjective Patient Comments Patient Comments pt notes his leakage has gotten better and he is dry in the mornings. If he strains or lifts something heavy he will leak. He notes he needs to pictures of his exercise PT-OP-I Pelvic Floor Start: 03/12/23 15:01 Freq: Status: Active Protocol: Document 03/12/23 15:05 [facility] (Rec: 03/17/23 08:29 [facility] [id number]) Pelvic Floor Assessment Urine Pelvic Floor Surgery Yes: prostatectomy/radiation Urinary Symptoms Urge Sensation,Incomplete Emptying Other Urinary Symptoms urinary incontinence, urgency, frequency, nocturia x 3, Leakage Size Large Leakage Cause Cough,Exercise,Lifting,Sneeze Leaks Per Day frequent Voiding Frequency every hour Nocturia 3 Pads Used In 24 Hours 6 SEMG (uV) Baseline 3.5 10 Second Contraction 4.2 Contraction Ability Voluntary Contraction Weak Voluntary Relaxation Weak Muscle Endurance (Seconds) 3 Comments Pelvic Floor Comments pt lacks both intensity of pelvic floor contraction as well as endurance, he is limited to 3-4 seconds only with contractions PT-OP-M Strength Start: 03/12/23 15:01 Freq: Status: Active Protocol: Document 03/12/23 15:05 [facility] (Rec: 03/17/23 08:31 [facility] [id number]) Trunk Strength Trunk Manual Muscle Testing Testing Position Supine Flexion 3+ Fair+ Core Stabilization Decreased TA activation in supine and pt tends to use upper abdominal wall PT-OP-Q Treatments Start: 03/12/23 15:01 Freq: Status: Active Protocol: Document 09/15/23 09:50 [facility] (Rec: 09/15/23 10:35 [facility] [id number]) Therapeutic Exercises Supine Exercises quad stretch Supine Exercise Name sidelying quad stretch Comments 2 reps holding 30 sec each lower trunk rotation Reps/Minutes x 10 reps iliopsoas stretch Reps/Minutes hold 1-2 minutes single knee to chest stretch Reps/Minutes hold 1 min ball squeeze with pelvic floor contraction Reps/Minutes x 10 reps Comments adductor assist helped with pts ability to sustain pelvic floor contraction quick contractions Reps/Minutes x 10 reps holding 2 seconds and relaxing 2 seconds pelvic floor long holds Reps/Minutes x 10 reps Standing Exercises standing adductor stretch with weight shifts Reps/Minutes hold 30 sec to 1 min each side PT-OP-T Assessment and Plan Start: 03/12/23 15:01 Freq: Status: Active Protocol: Document 09/15/23 09:50 [facility] (Rec: 09/15/23 10:35 [facility] [id number]) Physical Therapy Assessment Goals 3 Impairment Pelvic floor weakness and decreased endurance Short Term Goal (STG) Marc is able to sustain a pelvic floor contraction in supine x 10 seconds Good progress STG Duration 5 weeks [employer]aker Goal (LTG) Marc is able to sustain a pelvic floor contraction in standing x 5 seconds GOAL Met LTG Duration 8 weeks+ 2 Impairment Nocturia with pt waking 3 times per night to void Residential Goal (LTG) Marc is able to reduce his night time voiding to 1-2 times per night Goal met LTG Duration 8 weeks+ 1 Impairment urinary incontinency with pt going through 6 pads per day [employer]aker Goal (LTG) Marc reports a overall reduction in pad use during the day with decreased urinary incontinence Good progress as Marc is now down to 3-4 pads per day LTG Duration 8 weeks+ Assessment Summary Assessment All exercises were reviewed today for a HEP for Marc. He has made good progress with decreased leakage this past month. His low back pain and radicular pain has increased and I did encourage him to speak to his doctor about his increased pain. At this point he will be discharged from pelvic PT. Physical Therapy Plan Discharge Physical Therapy Discharge Reasons No Longer Attending PT Discharge Comments Marc has met some of his goals, he still leaks with higher level activity and will continue to work on his home program
== END 2023-09-16 10:16 | disposition home or self-care (01) ==
LOC: PHYS 09:45
PROVIDERS: Referring Provider Family Medicine; Visit Provider Family Medicine
DX: R32 Unspecified urinary incontinence (principal); C61 Malignant neoplasm of prostate; R35.1 Nocturia; R39.14 Feeling of incomplete bladder emptying; N39.3 Stress incontinence (female) (male)
CPT/HCPCS: 97110; 97112; 97140; 97161

== ENCOUNTER → 2023-09-28 08:38 | Outpatient (CLI) | payer MEDICARE, SELFPAY ==
[2018-02-04 11:22] VITALS: BMI 25.8
--- NOTE | 2023-09-28 08:40 | DI.RAD.S_ITS ---
PROCEDURE: XR LUMBAR SPINE MIN 4V INDICATIONS: LOW BACK PAIN TECHNIQUE: 5 views of the lumbar spine were acquired, including bilateral oblique views. COMPARISON: [facility], MR, MR LUMBAR SPINE WITHOUT CONTRAST, 04/28/2023, 9:12. FINDINGS: Bones: 5 nonrib-bearing vertebrae are present. Straightening of the normal lumbar lordosis. There is multilevel facet arthropathy, worse at L4-5 and L5-S1. Multilevel disc height loss with degenerative endplate changes and spurring is present. This is most pronounced at L5-S1. No vertebral body compression fractures. No suspicious bony lesions. Soft tissues: Overlying bowel gas pattern is normal. No suspicious soft tissue calcifications. Right upper quadrant surgical clips. Atherosclerotic vascular calcifications. Oblique images: No pars defects. IMPRESSION: Multilevel degenerative changes of the lumbar spine, most pronounced at L5-S1. Dictated by: Jono Alcazar M.D. on 09/28/2023 at 10:14 Approved by: Jono Alcazar M.D. on 09/28/2023 at 10:15
--- NOTE | 2023-09-28 11:04 | DI.RAD.S_ITS ---
PROCEDURE: XR HIP W PEL IF DONE ANJUM MIN 4V INDICATIONS: Bilateral hip pain TECHNIQUE: AP pelvis with lateral view(s) of the bilateral hip(s). COMPARISON: None. FINDINGS: Bones: No fractures or dislocations. Moderate bilateral femoroacetabular joint space narrowing and juxta-articular osteophytosis, symmetric. Pelvic ring appears intact. No suspicious bony lesions. Soft tissues: The visualized bowel gas pattern is normal. No suspicious soft tissue calcifications. IMPRESSION: 1. No acute bony abnormality. If there is high clinical suspicion for a radiographically occult fracture, consider cross-sectional imaging for further evaluation. 2. Moderate bilateral hip osteoarthritis. Dictated by: Anika Gregg M.D. on 09/28/2023 at 15:21 Approved by: Anika Gregg M.D. on 09/28/2023 at 15:23
== END ==
PROVIDERS: PCP Family Medicine; Referring Provider Anesthesiology; Visit Provider Anesthesiology
DX: M47.26 Other spondylosis with radiculopathy, lumbar region (principal); M47.27 Other spondylosis with radiculopathy, lumbosacral region; M48.061 Spinal stenosis, lumbar region without neurogenic claudication; M16.0 Bilateral primary osteoarthritis of hip; M54.50 Low back pain, unspecified; M25.551 Pain in right hip; M25.552 Pain in left hip
CPT/HCPCS: 72110; 73522; 99214

== ENCOUNTER 2023-10-21 13:27 | Outpatient (CLI) | payer MEDICARE, SELFPAY ==
[2018-02-04 11:22] VITALS: BMI 25.8
[2023-10-21] VITALS (8 sets, daily range): BP systolic 110–138; BP diastolic 56–72; PULSE 59–66; RESP 16–20; TEMP 36.1; O2SAT 96–100
--- NOTE | 2023-10-21 14:00 | DI.RAD.S_ITS ---
PROCEDURE: PAIN L INTERLAMINAR/CAUDAL INJ INDICATIONS: radiculopathy COMPARISON: None. FINDINGS: Fluoroscopic spot filming was performed to verify placement of spinal needles at the L3-4 level(s), as labeled on the films. Appropriate location(s) of the needle tip(s) was confirmed by injection of iodinated contrast. IMPRESSION: Fluoroscopic guidance utilized for an L3-4 epidural steroid injection. Dictated by: Paulino Osorio M.D. on 10/21/2023 at 15:37 Approved by: Paulino Osorio M.D. on 10/21/2023 at 15:37
[2023-10-21] MEDS: MIDAZOLAM 2 MG/2 ML VIAL 1 MG IV (14:10)
[2023-10-21] MEDS: DEXAMETHASONE 10 MG/ML VIAL INJ (14:12)
[2023-10-21] MEDS: iopamidoL 15 ML VIAL 3 ML INJ (14:13)
--- NOTE | 2023-10-21 15:38 | P.PCN_ITS ---
Date/Time/Diagnoses Date of procedure: 10/21/23 Time of procedure: 14:00 Procedure Notes Physician: Adonay Mcbride Total Fluoroscopy time (seconds): 11 Total sedation minutes: 16 Procedure in detail & Post-procedure care: L3-4 Interlaminar Epidural Steroid Injection Indications: Marc is presenting for treatment of lumbar radiculopathy with low back and leg pain. Preoperative diagnosis: Lumbar radiculopathy Postoperative diagnosis: Same Focused Examination: Ax3 Mood and affect are normal Vital Signs: VSS ASA: 2 Consent: Following review of allergies and potential side effects/complications, including, but not necessarily limited to, infection, allergic reaction, local tissue breakdown, stroke, temporary or permanent nerve injury, paralysis, and possible , the patient indicated that they understood and agreed to pr oceed.? An informed consent document was signed by the patient, witnessed by a nurse and placed in the patient's chart.? Additionally, other treatment options including medications and physical therapy were reviewed with the patient. All questions were answered. Site was then marked. Anesthesia: After review of previous anesthetic history and IV conscious sedation, the patient was deemed safe to proceed with today's procedure with IV conscious sedation. IV sedation was accomplished with midazolam 1 mg administered by the RN after order by Dr. Mcbride. Sedation was titrated to patient comfort during the course of the procedure. Patient remained responsive to all verbal commands. Position: Prone Monitoring: NIBP, Pulse oximetry, 3 lead EKG Needle used: 18 G 3.5? Tuohy Contrast: Isovue 300M Injectate: Dexamethasone 10 mg with 1% lidocaine 2 mL Technique: The skin was prepped with chloraprep and then draped in a sterile fashion. Time out was performed as per protocol. Oxygen applied via NC. Skin and subcutaneous structures of the needle entry site was then infiltrated with 3 mL of lidocaine 1%. Under AP, lateral and contralateral oblique fluoroscopic control, the Tuohy needle was guided into the L3-4 epidural space. The space was accessed with loss of resistance technique. Isovue 300M was then injected and the spread was consistent with the epidural space. There was no evidence for intravascular or intrathecal uptake. After negative aspiration, the above- mentioned injectate was then slowly administered and the needle withdrawn. The patient expressed no unusual discomfort or paresthesias during the injection. Band-Aids applied to injection sites. EBL: less than 1 ml Complications: None Post Procedure: Patient was taken to the recovery and monitored. The patient was provided a Pain Log to continue to record the patient's response to the target- specific procedure prior to the patient's follow-up visit with the referring physician. Patient was stable upon discharge. Detailed post procedure instructions were provided. Patient was asked to call in the event of worsening pain, fever, weakness, numbness or bladder or bowel incontinence.
== END 2023-10-21 14:45 | disposition home or self-care (01) ==
LOC: RAD 13:28
PROVIDERS: PCP Family Medicine; Referring Provider Anesthesiology; Visit Provider Anesthesiology
DX: M54.16 Radiculopathy, lumbar region (principal)
CPT/HCPCS: 62323; 82962; 99152; J1100; J2250

== ENCOUNTER 2024-06-10 00:14 | Emergency (ER) | payer MEDICARE, SELFPAY ==
[2018-02-04 11:22] VITALS: BMI 25.8
[2024-06-10 00:19] VITALS: BP 131/64; PULSE 86; RESP 18; TEMP 36.2; O2SAT 95; BMI 32.5
--- NOTE | 2024-06-10 01:01 | DI.RAD.S_ITS ---
PROCEDURE: XR HIP W PEL IF DONE BILAT 2V INDICATIONS: bilat hip pain TECHNIQUE: AP pelvis with lateral view(s) of the bilateral hip(s). COMPARISON: [facility], , XR HIP W PEL IF DONE ANJUM 3TO4V, 09/28/2023, 11:30. FINDINGS: Bones: No acute fractures or dislocations. Pelvic ring appears intact. No suspicious bony lesions. Degenerative changes of the bilateral hips and lower lumbar spine. Soft tissues: The visualized bowel gas pattern is normal. No suspicious soft tissue calcifications. IMPRESSION: No acute bony abnormality. Mild degenerative changes of the bilateral hips and lower lumbar spine. Dictated by: Alexsander Olvera M.D. on 06/10/2024 at 1:30 Approved by: Alexsander Olvera M.D. on 06/10/2024 at 1:31
[2024-06-10 03:41] VITALS: BP 128/64; PULSE 79; RESP 18; O2SAT 95
--- NOTE | 2024-06-10 03:50 | ED_ITS ---
HPI - Extremity Problem General Chief complaint: Extremity Problem,Nontraumatic Stated complaint: hip pain both sides Time Seen by Provider: 06/10/24 01:01 Source: patient Mode of arrival: Ambulatory History of Present Illness HPI Narrative: 74-year-old male has history of suspected restless leg syndrome, for which he takes gabapentin and amitriptyline. He complains of bilateral hip pain, no injury or new activities. No fevers or chills. No falls or injuries. He has not tried any stretching or local maneuvers. He does not taken any Tylenol or ibuprofen. He tried taking oxycodone for relief of symptoms. He denies numbness to the perineum, no incontinence of urine or stool. No weakness or numbness to the legs. Related Data Home Medications Medication Instructions Recorded Confirmed atorvastatin 20 mg tablet 20 mg PO DAILY 09/28/23 12/03/23 hydrocodone 7.5 mg-acetaminophen 1 tab PO PRN 09/28/23 12/03/23 325 mg tablet meloxicam 15 mg tablet 15 mg PO DAILY PRN 09/28/23 12/03/23 metformin 500 mg tablet,extended 500 mg PO DAILY 09/28/23 12/03/23 release 24 hr ropinirole 1 mg tablet 1 mg PO QID 09/28/23 12/03/23 tadalafil 5 mg tablet 5 mg PO DAILY 09/28/23 12/03/23 amitriptyline 25 mg tablet 25 mg PO ONCE PM 11/17/23 12/03/23 gabapentin 300 mg capsule 600 mg PO TID 11/17/23 12/03/23 Allergies Allergy/AdvReac Type Severity Reaction Status Date / Time Penicillins [PENICILLINS] Allergy Unknown Verified 12/03/23 11:29 Review of Systems Review of Systems Narrative: see HPI Patient History Medical History Lumbar foraminal stenosis Lumbar spondylosis Osteoarthritis, hip, bilateral Lumbar radiculopathy Bilateral hip pain Smoker High cholesterol Bowel obstruction Surgical History H/O exploratory laparotomy (~1980) History of cholecystectomy (~1983) Social History household members: spouse Smoking Status: Current every day smoker alcohol intake: current Smoking Status: Current every day smoker tobacco type: cigarettes alcohol intake frequency: holidays/special occasions only Substance Use Type: does not use Exam Narrative Exam Narrative: GENERAL: Well-developed patient, in mild distress. HEAD: Atraumatic. Normocephalic. EYES: Pupils equal round and reactive. Extraocular motions intact. No scleral icterus. No injection or drainage. ENT: Nose without bleeding, purulent drainage. Throat without erythema, tonsillar hypertrophy or exudate. Airway patent. NECK: Trachea midline. Non tender CARDIOVASCULAR: Regular rate and rhythm without murmurs, gallops, or rubs. RESPIRATORY: Clear to auscultation. Breath sounds equal bilaterally. No wheezes, rales, or rhonchi. GASTROINTESTINAL: Abdomen soft, non-tender, nondistended. EXTREMITIES: No edema or joint tenderness. No limb length discrepancy lower extremities. No tenderness to bilateral anterior or trochanteric regions of the hip. Can flex and extend fully at hips. BACK: Nontender without deformity or crepitance. No flank tenderness. NEURO: AOx3. Motor functions grossly nonfocal SKIN: No rash or erythema of visible areas Initial Vital Signs Initial Vital Signs: Vital Signs Temperature 97.2 F L 06/10/24 00:19 Pulse Rate 86 06/10/24 00:19 Respiratory Rate 18 06/10/24 00:19 Blood Pressure 131/64 06/10/24 00:19 Pulse Oximetry 95 06/10/24 00:19 Oxygen Delivery Method Room Air 06/10/24 00:19 Course Orders Ordered: ED Orders 06/10/24 01:01 XR hip w pel if done BILAT 2V Stat Discontinued Medications Ketorolac Tromethamine (Ketorolac 30 Mg/Ml Vial) 30 mg IM NOW ONE Stop: 06/10/24 04:09 Last Admin: 06/10/24 04:13 Dose: 30 mg Documented By: Vital Signs Vital signs: Vital Signs - 8 hr 06/10/24 00:19 06/10/24 03:41 06/10/24 03:41 Temperature 97.2 F L Pulse Rate 86 79 Respiratory Rate 18 18 Blood Pressure 131/64 128/64 Pulse Oximetry 95 95 Oxygen Delivery Method Room Air MDM - Extremity (Nontraumatic) Treatment and disposition Shared decision making:: MDM/course: 74-year-old male with bilateral hip pain, history of suspected restless leg, taking amitriptyline and gabapentin, not taking any NSAIDs, using home oxycodone doses. IM Toradol given, symptoms improved. Encouraged to consider adding [id number] ibuprofen. Discharged home. Follow up with PCP advised early this week. Return precautions discussed. MDM Narrative Medical decision making narrative: [address] [address] XRay Report Signed Patient: Marc Galvan MR#: [id number] : 1950 Acct:[id number] Age/Sex: 74 / M Date of Service: 06/10/24 Loc: ED Accession Number: [id number] Procedure: XR hip w pel if done BILAT 2V Ordering Provider: Larry Bell MD PROCEDURE: XR HIP W PEL IF DONE BILAT 2V INDICATIONS: bilat hip pain TECHNIQUE: AP pelvis with lateral view(s) of the bilateral hip(s). COMPARISON: [facility], CR, XR HIP W PEL IF DONE ANJUM 3TO4V, 09/28/2023, 11:30. FINDINGS: Bones: No acute fractures or dislocations. Pelvic ring appears intact. No suspicious bony lesions. Degenerative changes of the bilateral hips and lower lumbar spine. Soft tissues: The visualized bowel gas pattern is normal. No suspicious soft tissue calcifications. IMPRESSION: No acute bony abnormality. Mild degenerative changes of the bilateral hips and lower lumbar spine. Dictated by: Alexsander Olvera M.D. on 06/10/2024 at 1:30 Approved by: Alexsander Olvera M.D. on 06/10/2024 at 1:31 Discharge Plan Departure Patient Disposition: Home Clinical Impression: Bilateral hip pain, Osteoarthritis Activity Restrictions/Additional Instructions: Chronic hip pain for which you have been taking gabapentin and amitriptyline, worsening pain, no new activities. No tenderness anterior or trochanteric lateral regions of either hip. X-ray shows degenerative arthritis changes of the hip, no lytic lesions, no dislocation, no obvious fractures. Intramuscular injection of Toradol given in the emergency department. Consider use of [id number] Motrin medication for control of your hip discomfort. Follow up with your regular doctor on Thursday for further pain control measures. Return to this/nearest emergency department for any change worsening symptoms or any concerns prior Prescriptions: No Action ropinirole 1 mg tablet 1 mg PO QID metformin 500 mg tablet extended release 24 hr 500 mg PO DAILY atorvastatin 20 mg tablet 20 mg PO DAILY meloxicam 15 mg tablet 15 mg PO DAILY PRN tadalafil 5 mg tablet 5 mg PO DAILY hydrocodone-acetaminophen 7.5-325 mg tablet 1 tab PO PRN gabapentin 300 mg capsule 600 mg PO TID amitriptyline 25 mg tablet 25 mg PO ONCE PM Referrals: Savannah Baker DO [Primary Care Provider] - Stand Alone Forms: Patient Portal/API/Survey
[2024-06-10] MEDS: KETOROLAC 30 MG/ML VIAL IM (04:13)
== END 2024-06-10 04:28 | disposition home or self-care (01) ==
PROVIDERS: Emergency Provider Emergency Medicine; PCP Family Medicine
DX: M25.552 Pain in left hip (principal); M25.551 Pain in right hip; M19.90 Unspecified osteoarthritis, unspecified site
CPT/HCPCS: 73521; 96372; 99283; J1885

== ENCOUNTER 2024-07-23 11:18 | Inpatient (IN) | payer MEDICARE, SELFPAY ==
[2018-02-04 11:22] VITALS: BMI 25.8
[2024-07-23] VITALS (14 sets, daily range): BP systolic 133–168; BP diastolic 70–87; PULSE 75–88; RESP 14–22; TEMP 36.3–36.9; O2SAT 93–96; BMI 31.1
--- NOTE | 2024-07-23 11:34 | EKG_ITS ---
[address] [address] Test Date: 2024-07-23 Pat Name: Marc Galvan Department: Room: Gender: Male Clinical Product Specialist: STEPH : 1950 Requested By: Order Number: [id number] Reading MD: Measurements Intervals [place] Rate: 79 P: 58 OR: 170 QRS: 44 QRSD: 84 T: 74 QT: 366 QTc: 419 Interpretive Statements Sinus rhythm with premature atrial complexes Electronically Signed On 07-23-2024 14:07:22 PST by Ady Piña
[2024-07-23 11:41] LABS: Add Manual Diff / Slide Review NO; Basophils Absolute Auto 0 /uL (0-100); Basophils Percent Auto 0.1 % (0-2); Eosinophils Absolute Auto 0 /uL (0-450); Eosinophils Percent Auto 0.1 % (2-4); Hematocrit 42.5 % (41-53); Hemoglobin 14.3 g/dL (13.5-17.5); Lymphocytes Absolute Auto 700 /uL (1100-4500); Lymphocytes Percent Auto 5.1 % (25-40); Mean Corpuscular HGB Conc 33.7 % (30-36); Mean Corpuscular Hemoglobin 29.8 PG (26-34); Mean Corpuscular Volume 88.2 fL (80-100); Monocytes Absolute Auto 700 /uL (0-900); Monocytes Percent Auto 5.1 % (3-14); Neutrophils Absolute Auto 11800 /uL (1500-7000); Neutrophils Percent Auto 89.6 % (50-75); Platelet Count 250 X10^3/uL (150-400); Red Blood Cell Count 4.82 X10^6/uL (4.5-5.9); Red Cell Distribution Width 13.1 % (11.6-14.8); White Blood Cell Count 13.1 X10^3/uL (4.5-11.0)
[2024-07-23 11:51] LABS: Alanine Aminotransferase 33 IU/L (<50); Albumin 4.4 g/dL (3.5-5.0); Albumin Globulin Ratio 1.6 (1.0-2.8); Alkaline Phosphatase 75 U/L (38-126); Aspartate Aminotransferase 33 IU/L (17-59); BUN Creatinine Ratio 17.8 (6-22); Bilirubin Total 0.5 mg/dL (0.2-1.3); Blood Urea Nitrogen 13 mg/dL (9-20); Calcium 9.5 mg/dL (8.4-10.2); Carbon Dioxide 24 mmol/L (22-32); Chloride 105 mmol/L (98-107); Estimated Glomerular Filt Rate > 60 mL/min (>60); Globulin 2.8 g/dL (1.7-4.1); Glucose 169 mg/dL (80-110); HEMOLYSIS < 15 (0-50); Lipase 44 U/L (23-300); Potassium 4.3 mmol/L (3.4-5.1); Sodium 137 mmol/L (137-145); Total Protein 7.2 g/dL (6.3-8.2)
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
[2024-07-23] MEDS: ONDANSETRON 4 MG/2 ML INJ IV ×2 (12:09→20:47)
[2024-07-23] MEDS: MORPHINE 4 MG/ML INJ IV (12:09)
[2024-07-23] MEDS: SODIUM CHLORIDE 0.9% 1,000 ML 1000 ML IV (12:10)
[2024-07-23] MEDS: KETOROLAC 30 MG/ML VIAL 15 MG IV (13:44)
--- NOTE | 2024-07-23 14:02 | P.HP_ITS ---
History of Present Illness History of Present Illness Date Patient Seen: 07/23/24 Time Patient Seen: 14:03 Chief complaint: abd px PFSH Medical History Lumbar foraminal stenosis Lumbar spondylosis Osteoarthritis, hip, bilateral Lumbar radiculopathy Bilateral hip pain Smoker High cholesterol Bowel obstruction Surgical History H/O exploratory laparotomy (~1980) History of cholecystectomy (~1983) Social History household members: spouse Smoking Status: Current every day smoker alcohol intake: current Meds Home Medications and Allergies Home Medications Medication Instructions Recorded Confirmed Type atorvastatin 20 mg tablet 20 mg PO DAILY 09/28/23 12/03/23 History hydrocodone 7.5 mg-acetaminophen 1 tab PO PRN 09/28/23 12/03/23 History 325 mg tablet meloxicam 15 mg tablet 15 mg PO DAILY PRN 09/28/23 12/03/23 History metformin 500 mg tablet,extended 500 mg PO DAILY 09/28/23 12/03/23 History release 24 hr ropinirole 1 mg tablet 1 mg PO QID 09/28/23 12/03/23 History tadalafil 5 mg tablet 5 mg PO DAILY 09/28/23 12/03/23 History amitriptyline 25 mg tablet 25 mg PO ONCE PM 11/17/23 12/03/23 History gabapentin 300 mg capsule 600 mg PO TID 11/17/23 12/03/23 History Allergies Allergy/AdvReac Type Severity Reaction Status Date / Time Penicillins [PENICILLINS] Allergy Unknown Childhood Verified 07/23/24 11:21 reaction, unknown Exam Vital Signs (past 8 hours): - 07/23/24 11:21 07/23/24 11:36 07/23/24 11:43 Temperature 97.9 F Pulse Rate 88 79 78 Respiratory Rate 20 22 Blood Pressure 168/87 H Pulse Oximetry 95 94 Oxygen Delivery Method Room Air 07/23/24 11:43 07/23/24 12:00 07/23/24 12:00 Temperature Pulse Rate 78 Respiratory Rate 20 Blood Pressure 145/77 H 158/78 H Pulse Oximetry 94 Oxygen Delivery Method 07/23/24 12:09 07/23/24 12:26 12/14/24 12:26 Temperature 97.9 F Pulse Rate 82 Respiratory Rate 19 Blood Pressure 160/78 H Pulse Oximetry 94 Oxygen Delivery Method 07/23/24 12:30 07/23/24 12:30 07/23/24 13:00 Temperature Pulse Rate 81 86 Respiratory Rate 19 22 Blood Pressure 142/70 H Pulse Oximetry 93 94 Oxygen Delivery Method 07/23/24 13:00 07/23/24 13:30 07/23/24 13:30 Temperature Pulse Rate 78 Respiratory Rate 14 Blood Pressure 150/77 H 158/79 H Pulse Oximetry 96 Oxygen Delivery Method 07/23/24 13:54 07/23/24 13:54 Temperature Pulse Rate 80 Respiratory Rate 22 Blood Pressure 168/80 H Pulse Oximetry 96 Oxygen Delivery Method Oxygen Delivery Method Room Air Objective Imaging CT scan - abdomen: Radiologist's impression: ABDOMEN: Liver: No solid mass. Gallbladder: Surgically absent. Biliary ducts: No biliary dilation. Pancreas: No ductal dilation. Spleen: Size is within normal limits. Adrenal Glands: No adrenal nodules. Kidneys and Ureters: No hydronephrosis. No solid mass. No complex renal cystic lesion which requires follow up. Stomach and Bowel: Multiple fluid-filled dilated loops of bowel are seen throughout the abdomen, predominantly within the left upper quadrant. These measure up to 4.2 cm in diameter. The distal small bowel is decompressed as is the colon. There is a focal transition point on axial images 92-90, coronal images 30-35, and sagittal images 75-78. Peritoneum: There is mesenteric edema and mild interloop fluid about the distended small bowel within the mid abdomen. There is no rim enhancing fluid collection or extraluminal gas. Ventral Wall: No significant ventral hernia. Abdominal Nodes: No retroperitoneal or mesenteric adenopathy by size criteria. Vessels: Aorta and inferior vena cava are normal in size. PELVIS: Pelvic Organs: Unremarkable. Bladder: No bladder wall thickening, accounting for underdistention. Pelvic Nodes: No enlarged lymph nodes. Miscellaneous: No inguinal hernias are seen. Bones: No aggressive osseous abnormality. IMPRESSION: Small-bowel obstruction with a transition point in the mid abdomen. No evidence of perforation. Labs 07/23/24 11:34 07/23/24 11:34 Labs: Laboratory Results - last 24 hr 07/23/24 11:34 WBC 13.1 H RBC 4.82 Hgb 14.3 Hct 42.5 MCV 88.2 MCH 29.8 MCHC 33.7 RDW 13.1 Plt Count 250 Neut % (Auto) 89.6 H Lymph % (Auto) 5.1 L [place] % (Auto) 5.1 Eos % (Auto) 0.1 L Baso % (Auto) 0.1 Neut # (Auto) 15419 H Lymph # (Auto) 700 L [place] # (Auto) 700 Eos # (Auto) 0 Baso # (Auto) 0 Sodium 137 Potassium 4.3 Chloride 105 Carbon Dioxide 24 BUN 13 Creatinine 0.73 Estimated GFR > 60 BUN/Creatinine Ratio 17.8 Glucose 169 H Calcium 9.5 Total Bilirubin 0.5 AST 33 ALT 33 Alkaline Phosphatase 75 Total Protein 7.2 Albumin 4.4 Globulin 2.8 Albumin/Globulin Ratio 1.6 Lipase 44 Assessment & Plan Time-Based Coding :: [TOTAL MINUTES] spent with patient and on the chart (including review of chart, obtaining history, exam, reviewing outside data, placing orders, documenting exam and treatment plan, and counseling patient) on [DATE].
--- NOTE | 2024-07-23 14:26 | PC.NURSE ---
Unsuccessfull attempts for NG tube. Attempted left nare, met significant ressitance after past oropharynx. Pt denies a second attempts.
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
[2024-07-23] MEDS: SODIUM CHLORIDE 0.9% 1,000 ML 100 ML IV (15:34)
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
--- NOTE | 2024-07-23 17:04 | PC.NURSE ---
Pt rec'd from ED. see assessments and charting. Pt discussing care with Dr. Olivares. Pt also spoke with Dr. Piña regarding NG placement which was unsuccessful in ED. Will have Pt up walking throughout the shift frequently to assist peristalsis. Pt presently states no nausea and just completed two laps of the unit. Will encourage Pt to walk frequently during stay.
[2024-07-23] MEDS: MORPHINE 2 MG/ML INJ IV (20:48)
[2024-07-23] MEDS: GABAPENTIN 300 MG CAPSULE 900 MG PO (23:20)
[2024-07-23] MEDS: ROPINIROLE 1 MG TABLET 4 MG PO (23:20)
[2024-07-24] MEDS: MORPHINE 2 MG/ML INJ IV (01:47)
[2024-07-24] MEDS: SODIUM CHLORIDE 0.9% 1,000 ML 100 ML IV ×3 (01:51→21:46)
[2024-07-24] MEDS: ONDANSETRON 4 MG/2 ML INJ IV ×2 (03:52→12:55)
[2024-07-24 05:13] LABS: Add Manual Diff / Slide Review NO; Basophils Absolute Auto 0 /uL (0-100); Eosinophils Absolute Auto 0 /uL (0-450); Hematocrit 40.4 % (41-53); Hemoglobin 13.6 g/dL (13.5-17.5); Lymphocytes Absolute Auto 500 /uL (1100-4500); Lymphocytes Percent Auto 4.2 % (25-40); Mean Corpuscular HGB Conc 33.6 % (30-36); Mean Corpuscular Hemoglobin 29.9 PG (26-34); Mean Corpuscular Volume 89.1 fL (80-100); Monocytes Absolute Auto 900 /uL (0-900); Monocytes Percent Auto 7.8 % (3-14); Neutrophils Absolute Auto 10100 /uL (1500-7000); Platelet Count 209 X10^3/uL (150-400); Red Blood Cell Count 4.53 X10^6/uL (4.5-5.9); Red Cell Distribution Width 12.9 % (11.6-14.8); White Blood Cell Count 11.5 X10^3/uL (4.5-11.0)
[2024-07-24 05:43] LABS: Alanine Aminotransferase 26 IU/L (<50); Albumin 3.6 g/dL (3.5-5.0); Albumin Globulin Ratio 1.5 (1.0-2.8); Alkaline Phosphatase 64 U/L (38-126); Aspartate Aminotransferase 26 IU/L (17-59); BUN Creatinine Ratio 19.4 (6-22); Bilirubin Total 0.6 mg/dL (0.2-1.3); Blood Urea Nitrogen 13 mg/dL (9-20); Calcium 8.5 mg/dL (8.4-10.2); Carbon Dioxide 23 mmol/L (22-32); Chloride 108 mmol/L (98-107); Estimated Glomerular Filt Rate > 60 mL/min (>60); Globulin 2.4 g/dL (1.7-4.1); Glucose 174 mg/dL (80-110); HEMOLYSIS < 15 (0-50); Potassium 4.1 mmol/L (3.4-5.1); Sodium 136 mmol/L (137-145)
[2024-07-24 08:00] VITALS: BP 137/79; PULSE 90; RESP 18; TEMP 36.9; O2SAT 93
--- NOTE | 2024-07-24 08:27 | P.PN_ITS ---
Subjective Subjective Date Patient Seen: 07/24/24 Interval history: He is seen in his room today and appears to have worsened bowel obstruction symptoms. Overnight he felt better and was asking to eat so he could go home but several hours later he admits he is doing worse. He is being followed closely by General surgery. The white blood count is 11.5 with a hemoglobin of 13.6. The CMP is normal except for a glucose of 174. He complains of poor sleep and asks to have his pain medication dose increased. He is also taking ropinirole. Exam Vital Signs (past 8 hours): - 07/24/24 08:00 Temperature 98.5 F Pulse Rate 90 Respiratory Rate 18 Blood Pressure 137/79 Pulse Oximetry 93 Oxygen Flow Rate 0 Oxygen Delivery Method Room Air Oxygen Flow Rate 0 Narrative Exam Narrative: Alert and oriented x3. Moderately drowsy. Heart is regular rate and rhythm without murmur Lungs are clear to auscultation bilaterally Extremities have no ankle edema Abdomen is very distended and diffusely tender. Bowel sounds are diminished. Objective Labs 07/24/24 04:25 07/24/24 04:25 Labs: Laboratory Results - last 24 hr 07/23/24 07/24/24 11:34 04:25 WBC 13.1 H 11.5 H RBC 4.82 4.53 Hgb 14.3 13.6 Hct 42.5 40.4 L MCV 88.2 89.1 MCH 29.8 29.9 MCHC 33.7 33.6 RDW 13.1 12.9 Plt Count 250 209 Neut % (Auto) 89.6 H 88.0 H Lymph % (Auto) 5.1 L 4.2 L Dewitt % (Auto) 5.1 7.8 Eos % (Auto) 0.1 L 0.0 L Baso % (Auto) 0.1 0.0 Neut # (Auto) 62955 H 19153 H Lymph # (Auto) 700 L 500 L Dewitt # (Auto) 700 900 Eos # (Auto) 0 0 Baso # (Auto) 0 0 Sodium 137 136 L Potassium 4.3 4.1 Chloride 105 108 H Carbon Dioxide 24 23 BUN 13 13 Creatinine 0.73 0.67 Estimated GFR > 60 > 60 BUN/Creatinine Ratio 17.8 19.4 Glucose 169 H 174 H Calcium 9.5 8.5 Total Bilirubin 0.5 0.6 AST 33 26 ALT 33 26 Alkaline Phosphatase 75 64 Total Protein 7.2 6.0 L Albumin 4.4 3.6 Globulin 2.8 2.4 Albumin/Globulin Ratio 1.6 1.5 Lipase 44 PFSH Medical History Lumbar foraminal stenosis Lumbar spondylosis Osteoarthritis, hip, bilateral Lumbar radiculopathy Bilateral hip pain Smoker High cholesterol Bowel obstruction Surgical History H/O exploratory laparotomy (~1980) History of cholecystectomy (~1983) Social History marital status: household members: spouse Smoking Status: Current every day smoker alcohol intake: current Assessment & Plan Assessment & Plan narrative: This is a 74-year-old male with recurrent small-bowel obstructions who presents with 12 hours of vomiting and abdominal distention. CT scan shows a mid bowel transition point with air-fluid levels. The First NG tube placement was unsuccessful and he has been refusing further attempts. He has been seen by General surgery. Recurrent small-bowel obstruction -original laparotomy in 1981 likely left adhesions present. -unsuccessful NG tube placement and patient refusing further attempts. -seen by General surgery who strongly recommends NG tube placement. -continue IV fluid support while NPO. IV Morphine prn. -On 07/24/2024 patient requested to begin oral intake and go home later but then symptoms of distention returned. Diabetes mellitus type 2 -holding metformin -correctional insulin lispro sliding scale while on IV fluid support. Restless leg syndrome -ropinirole Peripheral neuropathy -gabapentin Hyperlipidemia -atorvastatin. The patient is mobile and relatively low risk for DVT. He will be walking with nursing staff in the hallways. His is his backup decision maker. Time-Based Coding :: [TOTAL MINUTES] spent with patient and on the chart (including review of chart, obtaining history, exam, reviewing outside data, placing orders, documenting exam and treatment plan, and counseling patient) on [DATE]. Quality VTE Deep Vein Thrombosis/Pulmonary Embolism Present on Admission: No
--- NOTE | 2024-07-24 08:44 | PC.NURSE ---
Addendum entered by Cindy Logan R.N. 07/24/24 16:27: Pt with emesis again. Now agreeable to NG placement. NG tube placed. Auscultation and CXR confirmed placement. Pt resting comfortably, denying nausea at this time. Provider updated. Care ongoing. Addendum entered by Cindy Logan R.N. 07/24/24 14:43: Pt agreeable to ambulate after lunch. Pt c/o pain in abdomen upon standing, worsening when using toilet. Pt expressed nausea with the pain. Treated as ordered (See MAR). Pt resting comfortably. Emesis upon waking from nap, 200mL. Provider Dr. Olivares notified. NPO status ordered. Care ongoing. Original Note: Pt A&Ox4, sitting up in bed. Pt states he wants PO intake. This RN explained rationale for NPO status with pt's condition. Pt states, I know my body better than any doctor and what I need is some Gatorade. Providers Dr. Piña and Dr. Olivares notified of pt's position on NPO status. Pt declined abd xray, provider notified. Pt states, I'm not staying another night here. Providers notified. Care ongoing.
--- NOTE | 2024-07-24 09:16 | DI.RAD.S_ITS ---
PROCEDURE: XR ABDOMEN MIN 2V INDICATIONS: SBO TECHNIQUE: 2 views of the abdomen were acquired. COMPARISON: None. FINDINGS: Surgical changes and devices: None. Bowel: No pneumoperitoneum. There is persistent mild dilation of the gas-filled small bowel up to 3.8 cm. Soft tissues: No masses; visualized solid organ contours appear normal in size. No suspicious abdominal calcifications. Bones: No suspicious bony abnormalities. IMPRESSION: Persistently mildly dilated small bowel. Dictated by: Joceline Chen M.D. on 07/24/2024 at 8:51 Approved by: Joceline Chen M.D. on 07/24/2024 at 8:53
--- NOTE | 2024-07-24 09:21 | PM.PN.1 ---
Subjective Subjective Date Patient Seen: 07/24/24 Time Patient Seen: 09:21 Interval history: Patient has been directing his own care since admission. No passing flatus, no bowel movement. He states that if he were at home he would drink Gatorade, walk around and get better. I explained to him again that he has concerning findings on the CT scan, his white count has not yet resolved to normal, and his main presenting complaint is pain requiring narcotics, all of which are concerning findings for someone who may require surgery for bowel obstruction. He states that he has been through this many times before and has not required surgery so he thinks he would be just fine at home. I explained to him if he is discharged and returns that there may be a longer segment of bowel that requires resection at that time. He is now agreeable to at least getting a follow-up x-ray, but is still refusing nasogastric tube. He states that he ambulated some yesterday, but not yet today. Exam Vital Signs (past 8 hours): - 07/24/24 08:00 Temperature 98.5 F Pulse Rate 90 Respiratory Rate 18 Blood Pressure 137/79 Pulse Oximetry 93 Oxygen Flow Rate 0 Oxygen Delivery Method Room Air Oxygen Flow Rate 0 Narrative Exam Narrative: Gen: NAD, sitting comfortably in bed, appears well HEENT: Sclera are anicteric, head is normocephalic and atraumatic, trachea is midline. CV: RRR, no JVD Resp: clear to auscultation bilaterally, equal chest wall movement bilaterally Abd: soft, nontender, distended, hyperactive bowel sounds Ext: no edema, full range of motion Neuro: Cranial nerves II-XII grossly intact, no focal deficits Skin: No erythema or ecchymosis Objective Labs 07/24/24 04:25 07/24/24 04:25 Labs: Laboratory Results - last 24 hr 07/23/24 07/24/24 11:34 04:25 WBC 13.1 H 11.5 H RBC 4.82 4.53 Hgb 14.3 13.6 Hct 42.5 40.4 L MCV 88.2 89.1 MCH 29.8 29.9 MCHC 33.7 33.6 RDW 13.1 12.9 Plt Count 250 209 Neut % (Auto) 89.6 H 88.0 H Lymph % (Auto) 5.1 L 4.2 L [place]key % (Auto) 5.1 7.8 Eos % (Auto) 0.1 L 0.0 L Baso % (Auto) 0.1 0.0 Neut # (Auto) 11464 H 24719 H Lymph # (Auto) 700 L 500 L [place] # (Auto) 700 900 Eos # (Auto) 0 0 Baso # (Auto) 0 0 Sodium 137 136 L Potassium 4.3 4.1 Chloride 105 108 H Carbon Dioxide 24 23 BUN 13 13 Creatinine 0.73 0.67 Estimated GFR > 60 > 60 BUN/Creatinine Ratio 17.8 19.4 Glucose 169 H 174 H Calcium 9.5 8.5 Total Bilirubin 0.5 0.6 AST 33 26 ALT 33 26 Alkaline Phosphatase 75 64 Total Protein 7.2 6.0 L Albumin 4.4 3.6 Globulin 2.8 2.4 Albumin/Globulin Ratio 1.6 1.5 Lipase 44 PFSH Medical History Lumbar foraminal stenosis Lumbar spondylosis Osteoarthritis, hip, bilateral Lumbar radiculopathy Bilateral hip pain Smoker High cholesterol Bowel obstruction Surgical History H/O exploratory laparotomy (~1980) History of cholecystectomy (~1983) Social History marital status: household members: spouse Smoking Status: Current every day smoker alcohol intake: current Assessment & Plan Assessment and plan (1) Small bowel obstruction: Status: Acute Plan 1. Discussed again with the patient -- his was not present this morning -- the clinical value of a nasogastric tube, can be used to assess whether or not he is improving, may help decrease the volume of aspiration in the event that he would have an aspiration event. It also can be used for the placement of contrast her reassessment in the coming days. 2. Patient has a mild leukocytosis and some free fluid noted on my independent review of the CT scan. He does not have signs of peritonitis, however. He has been able to avoid operations in the past, and he would like to avoid operations again. We will continue to follow along, but the overall outcome is uncertain given the lab and CT findings. Repeat x-ray ordered for today. Patient is insistent that he will be fine to go home today. Explained to the nursing staff that he may be more reasonable when his arrives as she seemed to be helpful yesterday. Time-Based Coding :: [TOTAL MINUTES] spent with patient and on the chart (including review of chart, obtaining history, exam, reviewing outside data, placing orders, documenting exam and treatment plan, and counseling patient) on [DATE]. Quality VTE Deep Vein Thrombosis/Pulmonary Embolism Present on Admission: No
--- NOTE | 2024-07-24 11:01 | PM.EVENT ---
Event Note Event Note (Rapid Response, Code, or fall): Patient had finally agreed to Xray. My review of the Xray seems to be a persistant SBO, but not worsened than the CT scan. Will try clear liquids at patient request.
[2024-07-24] MEDS: INSULIN LISPRO 100 UNIT/ML 3ML VIAL SUBCUT (12:25)
[2024-07-24] MEDS: MORPHINE 4 MG/ML INJ IV ×3 (12:54→22:36)
[2024-07-24 14:33] LABS: Alanine Aminotransferase 28 IU/L (<50); Albumin 3.7 g/dL (3.5-5.0); Albumin Globulin Ratio 1.4 (1.0-2.8); Alkaline Phosphatase 55 U/L (38-126); Aspartate Aminotransferase 27 IU/L (17-59); BUN Creatinine Ratio 21.1 (6-22); Bilirubin Total 0.7 mg/dL (0.2-1.3); Blood Urea Nitrogen 15 mg/dL (9-20); Calcium 8.7 mg/dL (8.4-10.2); Carbon Dioxide 24 mmol/L (22-32); Chloride 106 mmol/L (98-107); Estimated Glomerular Filt Rate > 60 mL/min (>60); Globulin 2.6 g/dL (1.7-4.1); Glucose 185 mg/dL (80-110); HEMOLYSIS < 15 (0-50); Potassium 4.5 mmol/L (3.4-5.1); Sodium 137 mmol/L (137-145); Total Protein 6.3 g/dL (6.3-8.2)
--- NOTE | 2024-07-24 16:11 | DI.RAD.S_ITS ---
PROCEDURE: XR CHEST 1V INDICATIONS: NG placement TECHNIQUE: One view of the chest was acquired. COMPARISON: None. FINDINGS: Surgical changes and devices: An enteric tube terminates to the right of midline, likely at or just beyond the pylorus.. Lungs and pleura: Lungs are hypoinflated but grossly clear. No pleural effusions or pneumothorax. Mediastinum: Mediastinal contours appear normal. Heart size is normal. Bones and chest wall: No suspicious bony lesions. Overlying soft tissues appear unremarkable. IMPRESSION: Enteric tube terminating at or just beyond the pylorus. Dictated by: Joceline Chen M.D. on 07/24/2024 at 15:58 Approved by: Joceline Chen M.D. on 07/24/2024 at 15:59
[2024-07-24 20:00] VITALS: BP 141/71; PULSE 105; RESP 20; TEMP 37.7; O2SAT 90
[2024-07-24] MEDS: LIDOCAINE 5% PATCH 1 EACH TOP (20:42)
[2024-07-25] VITALS (16 sets, daily range): BP systolic 100–161; BP diastolic 43–129; PULSE 91–113; RESP 18–26; TEMP 36.2–36.5; O2SAT 89–96
[2024-07-25] MEDS: ONDANSETRON 4 MG/2 ML INJ IV ×3 (00:49→11:42)
[2024-07-25] MEDS: LIDOCAINE 5% PATCH 1 EACH TOP (01:23)
[2024-07-25] MEDS: MORPHINE 4 MG/ML INJ IV ×2 (03:35→09:37)
[2024-07-25] MEDS: SODIUM CHLORIDE 0.9% 1,000 ML 100 ML IV (09:37)
--- NOTE | 2024-07-25 11:12 | P.PN_ITS ---
Subjective Subjective Date Patient Seen: 07/25/24 Time Patient Seen: 11:12 Interval history: Patient has not passed any flatus or had a bowel movement since admission. He continues to have pain, he was agreeable to nasogastric tube placement last night. He had over 250 mL out initially, but the tube was now clamped while we await a contrast challenge. Exam Vital Signs (past 8 hours): - 07/25/24 08:00 Pulse Rate 92 H Respiratory Rate 18 Blood Pressure 127/71 Pulse Oximetry 94 Oxygen Delivery Method Room Air Oxygen Flow Rate 0 Narrative Exam Narrative: Gen: NAD, sitting comfortably in bed, appears well HEENT: Sclera are anicteric, head is normocephalic and atraumatic, trachea is midline. CV: RRR, no JVD Resp: clear to auscultation bilaterally, equal chest wall movement bilaterally Abd: soft, nontender, hyperactive bowel sounds Ext: no edema, full range of motion Neuro: Cranial nerves II-XII grossly intact, no focal deficits Skin: No erythema or ecchymosis Objective Labs 07/24/24 04:25 07/24/24 14:10 Labs: Laboratory Results - last 24 hr 07/24/24 14:10 Sodium 137 Potassium 4.5 Chloride 106 Carbon Dioxide 24 BUN 15 Creatinine 0.71 Estimated GFR > 60 BUN/Creatinine Ratio 21.1 Glucose 185 H Calcium 8.7 Total Bilirubin 0.7 AST 27 ALT 28 Alkaline Phosphatase 55 Total Protein 6.3 Albumin 3.7 Globulin 2.6 Albumin/Globulin Ratio 1.4 PFSH Medical History Lumbar foraminal stenosis Lumbar spondylosis Osteoarthritis, hip, bilateral Lumbar radiculopathy Bilateral hip pain Smoker High cholesterol Bowel obstruction Surgical History H/O exploratory laparotomy (~1980) History of cholecystectomy (~1983) Social History marital status: household members: spouse Smoking Status: Current every day smoker alcohol intake: current Assessment & Plan Assessment and plan (1) Small bowel obstruction: Status: Acute Plan 1. Patient was agreeable nasogastric tube placement last night. He has not passed gas or had flatus yet. He did not have a CBC today, but his BMP is stable and improved from yesterday. Mild tachycardia, low-grade above normal temperature. I explained to him that he has several features that make it likely he will require surgery for his bowel obstruction, with potential resection. He is still optimistic that he can resolve without surgery. We will discuss again pending the results of the contrast challenge/small-bowel follow- through. 2. Patient has a mild leukocytosis and some free fluid noted on my independent review of the CT scan. He does not have signs of peritonitis, however. He has been able to avoid operations in the past, and he would like to avoid operations again. We will continue to follow along, but the overall outcome is uncertain given the lab and CT findings. Time-Based Coding :: [TOTAL MINUTES] spent with patient and on the chart (including review of chart, obtaining history, exam, reviewing outside data, placing orders, documenting exam and treatment plan, and counseling patient) on [DATE]. Quality VTE Deep Vein Thrombosis/Pulmonary Embolism Present on Admission: No [facility] Charge codes Subsequent inpatient/observation care: 62126
--- NOTE | 2024-07-25 12:00 | DI.RAD.S_ITS ---
PROCEDURE: XR GASTROGRAFIN CHALLENGE COMPARISON: [facility], CT, CT ABDOMEN PELVIS W CON, 07/23/2024, 12:17. INDICATIONS: SBO ON CAT SCAN FINDINGS: Nasogastric tube is present. Contrast is present stomach. There remains of small bowel loops. Contrast is identified within the colon. IMPRESSION: Mild prominence of small bowel loops as previously identified, similar versus minimally improved. Overall appearance remains consistent partial small obstruction. Dictated by: Meche Bowman M.D. on 07/27/2024 at 19:11 Approved by: Meche Bowman M.D. on 07/27/2024 at 19:12
[2024-07-25] MEDS: HYDROMORPHONE 1 MG INJ IV (12:12)
--- NOTE | 2024-07-25 12:52 | CM.DPC ---
DCP Cont: Per Surgeon, pt was finally agreeable to NGT placement due to distension and discomfort/pain with significant output and now NG clamped for SBFT with contrast as Surgeon anticipates likely need for surgical intervention but pt hopeful for conservative tx. Pt has been ambulating in the room. Plan: SW to follow closely to determine conservative tx vs need for surgical intervention and further identified discharge planning needs. CHINA Murphy
--- NOTE | 2024-07-25 13:48 | PM.EVENT ---
Event Note Date Patient Seen: 07/25/24 Time Patient Seen: 13:48 Event Note (Rapid Response, Code, or fall): Patient underwent contrast challenge today. Had increasing pain after 4 hours. X-ray showed persistent bowel obstruction without progression of the contrast beyond the jejunum. Patient required his nasogastric tube replaced suctioned and almost 2 L were returned. He and his are now agreeable to surgical intervention. Risks, benefits, and alternatives including possible need for open surgery and possible bowel resection were explained. They agreed to proceed.
[2024-07-25] MEDS: metroNIDAZOLE 500 MG/100 ML PIGGYBACK 100 MG IV (15:15)
[2024-07-25] MEDS: CLINDAMYCIN 900 MG/50 ML PIGGYBACK 50 MG IV (15:20)
[2024-07-25] MEDS: LACTATED RINGERS 1,000 ML 42 ML IV (15:30)
--- NOTE | 2024-07-25 15:30 | SUR.OPER ---
Supine on padded OR bed, head on pillow, arms secured on padded arm boards at <90 degrees abduction, legs uncrossed, safety belt at thigh, tape over blanket over lower legs.
[2024-07-25] MEDS: BUPIVACAINE 0.25% (PF) 60 ML, EPINEPHrine 0.3 MG INJ (15:47)
--- NOTE | 2024-07-25 16:17 | P.PN_ITS ---
Subjective Subjective Interval history: 74 M admitted with small bowel obstruction due to adhesions. While attempting clamping trial for gastrograffin study he developed severe pain and nausea. Turned back to suction with 1.8 L removed. Now going to OR with general surgery. Exam Vital Signs (past 8 hours): - 07/25/24 14:53 Pulse Rate 91 H Respiratory Rate 18 Blood Pressure 115/67 Pulse Oximetry 89 L Oxygen Delivery Method Nasal Cannula Oxygen Flow Rate 4 Oxygen Delivery Method Nasal Cannula Oxygen Flow Rate 4 Narrative Exam Narrative: Alert and oriented x3. uncomfortable and ill appearing. Heart is regular rate and rhythm without murmur Lungs are clear to auscultation bilaterally Extremities have no ankle edema Abdomen is distended, tender. Objective Labs 07/24/24 04:25 07/24/24 14:10 [facility] Medical History Lumbar foraminal stenosis Lumbar spondylosis Osteoarthritis, hip, bilateral Lumbar radiculopathy Bilateral hip pain Smoker High cholesterol Bowel obstruction Surgical History H/O exploratory laparotomy (~1980) History of cholecystectomy (~1983) Social History marital status: household members: spouse Smoking Status: Current every day smoker alcohol intake: current Assessment & Plan Assessment & Plan narrative: This is a 74-year-old male with recurrent small-bowel obstructions admitted with bowel obstruction. CT scan shows a mid bowel transition point with air-fluid levels. Now undergoing operative intervention with general surgery now. Recurrent small-bowel obstruction - failed conservative management, now going for operative interventions with general surgery. - appreciate surgery consult. Diabetes mellitus type 2 -holding metformin -correctional insulin lispro sliding scale while on IV fluid support. Restless leg syndrome -ropinirole when able to tolerate PO medications. Peripheral neuropathy -gabapentin when able to tolerate medications. Hyperlipidemia -atorvastatin when able to tolerate medications. DVT: Lovenox Code: Full His is his backup decision maker. Dispo: Inpatient, likely home after recovery from above, likely several more days needed in the hospital Time-Based Coding :: [TOTAL MINUTES] spent with patient and on the chart (including review of chart, obtaining history, exam, reviewing outside data, placing orders, documenting exam and treatment plan, and counseling patient) on [DATE]. Quality VTE Deep Vein Thrombosis/Pulmonary Embolism Present on Admission: No
--- NOTE | 2024-07-25 17:58 | P.OP_ITS ---
Operative Date/Time/Diagnoses Date of procedure: 07/25/24 Time of procedure: 17:58 Pre-op diagnosis: small bowel obstruction Post-op diagnosis: same Procedure & Clinicians Procedure: Diagnostic laparoscopy, open lysis of adhesions Same procedure as scheduled: Yes Indications: Small bowel obstruction not improving with conservative management Surgeon: Tobi Olivares Click Yes if Unassisted: Yes Anesthesia Type: General Operative Notes Findings: Patient had extensive adhesions with a frozen pelvis. Closure Type: primary Specimen(s): none sent Estimated Blood Loss (mL): 100 Blood products transfused: none Procedure in detail: Patient had failed conservative management was brought to the operating room suite. General anesthesia was induced. Clindamycin and Flagyl was administered before the case. The patient was prepped and draped in the usual fashion in the supine position with the arms out. Total of 60 mL 0.25% Marcaine with epinephrine were used to infiltrate all trocar sites as well as performed bilateral transversus abdominis plane block and rectus block. 5 mm optical trocar was placed in the left upper quadrant and pneumoperitoneum was achieved. There were extensive midline adhesions and extensive interloop adhesions. An ad ditional 5 mm trocar was placed in the left lateral quadrant and combination of cold Metzenbaum scissors and an endo Kittner were used to take down the midline omental adhesions. Upon looking at the bowel, it was clear that laparoscopic enterolysis would not be safe due to the dense interloop adhesions. As such a midline incision was made and a large Vidal wound protector was placed. The right colon was identified along with the ileocecal valve which was decompressed. The ligament of Treitz was identified which was dilated. The bowel was run proximally to distally, however there was a segment of densely adhered small bowel into the pelvis. Due to the bowel being so dilated, a clear plane was not easy to identify. A controlled enterotomy was made on the anti mesenteric side of the ileum and suctioned free of small bowel contents. A canal stitch was then used to repair this controlled enterotomy. Metzenbaum dissection was carried out to relieve the transition point. There was still a segment of frozen adhesions in the pelvis near the sigmoid colon posteriorly that was not worth dissecting for fear of injuring either sigmoid colon or ureter. Adhesions were carried out for approximately 2 hours of what was safe to do. There was 1 mesenteric defect that was repaired with a 3-0 Prolene. Serosal tears were reinforced with 3-0 silk. The abdomen was copiously irrigated and suctioned free. There was no evidence of ongoing bleeding or spillage within the abdomen. The Vidal wound protector was removed and the incision was closed with 2-0 PDS. Skin was closed with ace. Patient tolerated the procedure well was transported to PACU in stable condition with a nasogastric tube and Bryant catheter in place. Complications: none Post-operative Condition: stable Disposition: PACU Plan for aftercare: NGT, bryant, bowel rest
[2024-07-25] MEDS: INSULIN LISPRO 100 UNIT/ML 3ML VIAL SUBCUT (18:29)
[2024-07-25] MEDS: HYDROMORPHONE 1 MG INJ 0.5 MG IV ×2 (18:34→18:48)
--- NOTE | 2024-07-25 18:57 | SUR.PHASEI ---
Pt transferred from OR to PACU by ABRAHAM Cobos and anaesthesia. NGT secured with tape and connected to continuous suction. Irrigated with 50mL sterile water per / Marshall d/t thick gastric secretions.
[2024-07-25] MEDS: KETOROLAC 30 MG/ML VIAL 15 MG IV (20:00)
[2024-07-25] MEDS: LACTATED RINGERS 500 ML 1000 ML IV (21:20)
[2024-07-25] MEDS: ACETAMINOPHEN IV 1,000 MG/100 ML VIAL 400 MG IV (22:16)
[2024-07-26] MEDS: KETOROLAC 30 MG/ML VIAL 15 MG IV ×4 (00:39→18:40)
[2024-07-26 03:00] VITALS: BP 113/72; PULSE 97; RESP 24; TEMP 36.4; O2SAT 92
[2024-07-26] MEDS: ACETAMINOPHEN IV 1,000 MG/100 ML VIAL 400 MG IV ×3 (05:10→21:09)
[2024-07-26 05:15] LABS: Add Manual Diff / Slide Review NO; Basophils Absolute Auto 0 /uL (0-100); Basophils Percent Auto 0.1 % (0-2); Eosinophils Absolute Auto 0 /uL (0-450); Hematocrit 38.7 % (41-53); Hemoglobin 12.9 g/dL (13.5-17.5); Lymphocytes Absolute Auto 200 /uL (1100-4500); Lymphocytes Percent Auto 3.3 % (25-40); Mean Corpuscular HGB Conc 33.4 % (30-36); Mean Corpuscular Hemoglobin 30.1 PG (26-34); Mean Corpuscular Volume 90.2 fL (80-100); Monocytes Absolute Auto 800 /uL (0-900); Monocytes Percent Auto 11.1 % (3-14); Neutrophils Absolute Auto 6300 /uL (1500-7000); Neutrophils Percent Auto 85.5 % (50-75); Platelet Count 206 X10^3/uL (150-400); Red Blood Cell Count 4.29 X10^6/uL (4.5-5.9); Red Cell Distribution Width 13.3 % (11.6-14.8); White Blood Cell Count 7.4 X10^3/uL (4.5-11.0)
[2024-07-26 05:57] LABS: Alanine Aminotransferase 24 IU/L (<50); Albumin 2.8 g/dL (3.5-5.0); Albumin Globulin Ratio 1.3 (1.0-2.8); Alkaline Phosphatase 53 U/L (38-126); Aspartate Aminotransferase 26 IU/L (17-59); BUN Creatinine Ratio 33.7 (6-22); Bilirubin Total 0.8 mg/dL (0.2-1.3); Blood Urea Nitrogen 33 mg/dL (9-20); Calcium 8.1 mg/dL (8.4-10.2); Carbon Dioxide 29 mmol/L (22-32); Chloride 109 mmol/L (98-107); Estimated Glomerular Filt Rate > 60 mL/min (>60); Globulin 2.1 g/dL (1.7-4.1); Glucose 220 mg/dL (80-110); HEMOLYSIS < 15 (0-50); Sodium 142 mmol/L (137-145); Total Protein 4.9 g/dL (6.3-8.2)
[2024-07-26] MEDS: INSULIN LISPRO 100 UNIT/ML 3ML VIAL SUBCUT ×2 (06:23→12:23)
[2024-07-26 06:55] VITALS: BP 117/75; PULSE 98; RESP 24; TEMP 36.2; O2SAT 91
[2024-07-26] MEDS: MORPHINE 4 MG/ML INJ IV ×3 (07:44→22:08)
[2024-07-26 08:00] VITALS: BP 111/65; PULSE 94; RESP 20; TEMP 36.8; O2SAT 91
[2024-07-26] MEDS: ENOXAPARIN 40 MG/0.4 ML SYRINGE SUBCUT (08:02)
[2024-07-26 09:59] VITALS: O2SAT 91
--- NOTE | 2024-07-26 10:35 | P.PN_ITS ---
Subjective Subjective Date Patient Seen: 07/26/24 Time Patient Seen: 10:35 Interval history: Patient feels much better today than yesterday. He states that he slept very well last night. He is approximately 400 mL in his NG. No flatus or bowel movement yet. Pain is well controlled. He is getting up to ambulate presently. Exam Vital Signs (past 8 hours): - 07/26/24 03:00 07/26/24 06:55 07/26/24 07:00 Temperature 97.6 F 97.1 F L Pulse Rate 97 H 98 H Respiratory Rate 24 24 Blood Pressure 113/72 117/75 Pulse Oximetry 92 91 Oxygen Delivery Method Nasal Cannula Oxygen Flow Rate 4 3.5 Fraction of Inspired Oxygen 07/26/24 08:00 07/26/24 09:59 Temperature 98.3 F Pulse Rate 94 H Respiratory Rate 20 Blood Pressure 111/65 Pulse Oximetry 91 91 Oxygen Delivery Method Nasal Cannula Oxygen Flow Rate 3.5 3.5 Fraction of Inspired Oxygen 36 Fraction of Inspired Oxygen 36 SaO2/FiO2 Ratio 252 Oxygen Delivery Method Nasal Cannula Oxygen Flow Rate 3.5 Narrative Exam Narrative: Incision clean, dry, intact. Dressing in place. Const General: comfortable and No acute distress GI Inspection: normal to inspection and no abdominal wall ecchymosis Objective Labs 07/26/24 05:00 07/26/24 05:00 Labs: Laboratory Results - last 24 hr 07/26/24 05:00 WBC 7.4 RBC 4.29 L Hgb 12.9 L Hct 38.7 L MCV 90.2 MCH 30.1 MCHC 33.4 RDW 13.3 Plt Count 206 Neut % (Auto) 85.5 H Lymph % (Auto) 3.3 L [place] % (Auto) 11.1 Eos % (Auto) 0.0 L Baso % (Auto) 0.1 Neut # (Auto) 6300 Lymph # (Auto) 200 L [place] # (Auto) 800 Eos # (Auto) 0 Baso # (Auto) 0 Sodium 142 Potassium 4.0 Chloride 109 H Carbon Dioxide 29 BUN 33 H Creatinine 0.98 Estimated GFR > 60 BUN/Creatinine Ratio 33.7 H Glucose 220 H Calcium 8.1 L Magnesium 2.0 Total Bilirubin 0.8 AST 26 ALT 24 Alkaline Phosphatase 53 Total Protein 4.9 L Albumin 2.8 L Globulin 2.1 Albumin/Globulin Ratio 1.3 PFSH Medical History Lumbar foraminal stenosis Lumbar spondylosis Osteoarthritis, hip, bilateral Lumbar radiculopathy Bilateral hip pain Smoker High cholesterol Bowel obstruction Surgical History H/O exploratory laparotomy (~1980) History of cholecystectomy (~1983) Social History marital status: household members: spouse Smoking Status: Current every day smoker alcohol intake: current Assessment & Plan Post-op Postoperative Procedures: Procedures Operation Date: 07/25/24 14:45 Actual Procedure Side Surgeon p Laparoscopy Diagnostic, OPEN LYSIS OF ADHESIONS Tobi Olivares MD Postoperative day: 1 Postoperative status: doing well Postoperative status narrative: Await for resolution of bowel obstruction. Postoperative plan narrative: Continue NPO until flatus. Quality VTE Deep Vein Thrombosis/Pulmonary Embolism Present on Admission: No
--- NOTE | 2024-07-26 10:39 | CM.DPC ---
DCP Cont. Reviewed EMR and team rounds for status updates. Pt is post-op day 1 from small bowel obstruction surgery with multiple adhesions present. He still has an NG tube placed, and diet has not yet been advanced. DCP will continue to monitor for home d/c assistance or resource needs.
[2024-07-26] MEDS: LACTATED RINGERS 1,000 ML 125 ML IV (14:30)
[2024-07-26] MEDS: LIDOCAINE 5% PATCH 2 EACH TOP (15:26)
--- NOTE | 2024-07-26 16:58 | PM.PN.1 ---
Subjective Subjective Date Patient Seen: 07/26/24 Time Patient Seen: 10:35 Interval history: 74 M admitted with bowel obstruction, s/p LEAH with general surgery yesterday. Improved today, still with NG tube this afternoon. Exam Narrative Exam Narrative: Alert and oriented x3. no acute distress, NG tube in place. Heart is regular rate and rhythm without murmur Lungs are clear to auscultation bilaterally Extremities have no ankle edema Abdomen is soft, non-distended. Ambulating the halls with a walker Objective Labs 07/26/24 05:00 07/26/24 05:00 Labs: Laboratory Results - last 24 hr 07/26/24 05:00 WBC 7.4 RBC 4.29 L Hgb 12.9 L Hct 38.7 L MCV 90.2 MCH 30.1 MCHC 33.4 RDW 13.3 Plt Count 206 Neut % (Auto) 85.5 H Lymph % (Auto) 3.3 L [place] % (Auto) 11.1 Eos % (Auto) 0.0 L Baso % (Auto) 0.1 Neut # (Auto) 6300 Lymph # (Auto) 200 L [place] # (Auto) 800 Eos # (Auto) 0 Baso # (Auto) 0 Sodium 142 Potassium 4.0 Chloride 109 H Carbon Dioxide 29 BUN 33 H Creatinine 0.98 Estimated GFR > 60 BUN/Creatinine Ratio 33.7 H Glucose 220 H Calcium 8.1 L Magnesium 2.0 Total Bilirubin 0.8 AST 26 ALT 24 Alkaline Phosphatase 53 Total Protein 4.9 L Albumin 2.8 L Globulin 2.1 Albumin/Globulin Ratio 1.3 PFSH Medical History Lumbar foraminal stenosis Lumbar spondylosis Osteoarthritis, hip, bilateral Lumbar radiculopathy Bilateral hip pain Smoker High cholesterol Bowel obstruction Surgical History H/O exploratory laparotomy (~1980) History of cholecystectomy (~1983) Social History marital status: household members: spouse Smoking Status: Current every day smoker alcohol intake: current Assessment & Plan Assessment & Plan narrative: This is a 74-year-old male with recurrent small-bowel obstructions admitted with bowel obstruction. CT scan showed a mid bowel transition point with air-fluid levels. Failed conservative management and underwent surgical LEAH on 07/25. Recurrent small-bowel obstruction - failed conservative management, underwent extensive laparoscopic converted to open LEAH and an enterotomy with general surgery - appreciate surgery management, discussed with surgeon today likely slow to recover given how extensive LEAH was. Diabetes mellitus type 2 -holding metformin -correctional insulin lispro sliding scale while on IV fluid support. Restless leg syndrome -ropinirole when able to tolerate PO medications. Peripheral neuropathy -gabapentin when able to tolerate medications. Hyperlipidemia -atorvastatin when able to tolerate medications. DVT: Lovenox Code: Full His is his backup decision maker. Dispo: Inpatient, likely home after recovery from above, may need PT or OT consultation, though ambulating well today with a walker. likely several more days needed in the hospital. Time-Based Coding :: [TOTAL MINUTES] spent with patient and on the chart (including review of chart, obtaining history, exam, reviewing outside data, placing orders, documenting exam and treatment plan, and counseling patient) on [DATE]. Quality VTE Deep Vein Thrombosis/Pulmonary Embolism Present on Admission: No
[2024-07-26 19:41] VITALS: PULSE 82; O2SAT 92
[2024-07-27] MEDS: KETOROLAC 30 MG/ML VIAL 15 MG IV ×3 (01:01→13:31)
[2024-07-27] MEDS: MORPHINE 4 MG/ML INJ IV ×3 (03:18→23:51)
[2024-07-27 05:15] LABS: Add Manual Diff / Slide Review NO; Basophils Absolute Auto 0 /uL (0-100); Eosinophils Absolute Auto 0 /uL (0-450); Eosinophils Percent Auto 0.1 % (2-4); Hematocrit 33.5 % (41-53); Hemoglobin 11.2 g/dL (13.5-17.5); Lymphocytes Absolute Auto 400 /uL (1100-4500); Lymphocytes Percent Auto 4.5 % (25-40); Mean Corpuscular HGB Conc 33.4 % (30-36); Mean Corpuscular Hemoglobin 30.2 PG (26-34); Mean Corpuscular Volume 90.4 fL (80-100); Monocytes Absolute Auto 900 /uL (0-900); Monocytes Percent Auto 11.2 % (3-14); Neutrophils Absolute Auto 7000 /uL (1500-7000); Neutrophils Percent Auto 84.2 % (50-75); Platelet Count 191 X10^3/uL (150-400); Red Cell Distribution Width 13.4 % (11.6-14.8); White Blood Cell Count 8.3 X10^3/uL (4.5-11.0)
[2024-07-27 05:27] LABS: Alanine Aminotransferase 22 IU/L (<50); Albumin Globulin Ratio 1.2 (1.0-2.8); Alkaline Phosphatase 60 U/L (38-126); Aspartate Aminotransferase 26 IU/L (17-59); BUN Creatinine Ratio 41.8 (6-22); Bilirubin Total 0.5 mg/dL (0.2-1.3); Blood Urea Nitrogen 38 mg/dL (9-20); Calcium 8.2 mg/dL (8.4-10.2); Carbon Dioxide 32 mmol/L (22-32); Chloride 110 mmol/L (98-107); Estimated Glomerular Filt Rate > 60 mL/min (>60); Globulin 2.6 g/dL (1.7-4.1); Glucose 138 mg/dL (80-110); HEMOLYSIS < 15 (0-50); Magnesium 2.7 mg/dL (1.6-2.3); Potassium 3.6 mmol/L (3.4-5.1); Sodium 145 mmol/L (137-145); Total Protein 5.6 g/dL (6.3-8.2)
[2024-07-27] MEDS: ACETAMINOPHEN IV 1,000 MG/100 ML VIAL 400 MG IV ×3 (06:08→22:17)
--- NOTE | 2024-07-27 08:16 | P.PN_ITS ---
Subjective Subjective Interval history: Summary: Patient was admitted with bowel obstruction underwent surgery. The patient is having a diet advance per surgery. Subjective: He was doing well, his tube is clamped, he was on a trial of liquids. He had a small bowel movement and denies any nausea or abdominal pain. Exam Vital Signs (past 8 hours): Fraction of Inspired Oxygen 36 SaO2/FiO2 Ratio 252 Oxygen Delivery Method Nasal Cannula Oxygen Flow Rate 3.5 Narrative Exam Narrative: NAD, alert and oriented. Fluent speech. Lungs are clear, normal rate and effort. Heart is regular, no murmur gallop or rub. Abdomen is soft, non distended. Hypoactive bowel tones. Extremities are free of edema. Objective Labs 07/27/24 04:30 07/27/24 04:30 Labs: Laboratory Results - last 24 hr 07/27/24 04:30 WBC 8.3 RBC 3.70 L Hgb 11.2 L Hct 33.5 L MCV 90.4 MCH 30.2 MCHC 33.4 RDW 13.4 Plt Count 191 Neut % (Auto) 84.2 H Lymph % (Auto) 4.5 L [place] % (Auto) 11.2 Eos % (Auto) 0.1 L Baso % (Auto) 0.0 Neut # (Auto) 7000 Lymph # (Auto) 400 L [place] # (Auto) 900 Eos # (Auto) 0 Baso # (Auto) 0 Sodium 145 Potassium 3.6 Chloride 110 H Carbon Dioxide 32 BUN 38 H Creatinine 0.91 Estimated GFR > 60 BUN/Creatinine Ratio 41.8 H Glucose 138 H Calcium 8.2 L Magnesium 2.7 H Total Bilirubin 0.5 AST 26 ALT 22 Alkaline Phosphatase 60 Total Protein 5.6 L Albumin 3.0 L Globulin 2.6 Albumin/Globulin Ratio 1.2 [facility] Medical History Lumbar foraminal stenosis Lumbar spondylosis Osteoarthritis, hip, bilateral Lumbar radiculopathy Bilateral hip pain Smoker High cholesterol Bowel obstruction Surgical History H/O exploratory laparotomy (~1980) History of cholecystectomy (~1983) Social History marital status: household members: spouse Smoking Status: Current every day smoker alcohol intake: current Assessment & Plan Assessment & Plan narrative: Recurrent small-bowel obstruction, present on admission and improved. - failed conservative management, underwent extensive laparoscopic converted to open LEAH and an enterotomy with general surgery - appreciate surgery management, discussed with surgeon today likely slow to recover given how extensive LEAH was. Diabetes mellitus type 2, present on admission and stable. -holding metformin -correctional insulin lispro sliding scale while on IV fluid support. Restless leg syndrome, present on admission and stable. -ropinirole when able to tolerate PO medications. Peripheral neuropathy, present on admission and stable. -gabapentin when able to tolerate medications. Hyperlipidemia, present on admission and stable. -atorvastatin when able to tolerate medications. Plan: -trial of liquids, tube clamped. -advance diet per General surgery. DVT: Lovenox Code: Full His is his backup decision maker. Time-Based Coding :: [TOTAL MINUTES] spent with patient and on the chart (including review of chart, obtaining history, exam, reviewing outside data, placing orders, documenting exam and treatment plan, and counseling patient) on [DATE]. Quality VTE Deep Vein Thrombosis/Pulmonary Embolism Present on Admission: No
[2024-07-27] MEDS: ENOXAPARIN 40 MG/0.4 ML SYRINGE SUBCUT (08:17)
[2024-07-27 08:33] VITALS: BP 113/65; PULSE 87; RESP 18; TEMP 36.3; O2SAT 91
--- NOTE | 2024-07-27 11:42 | PM.PNPO.1 ---
Subjective Subjective Date Patient Seen: 07/27/24 Time Patient Seen: 11:43 Interval history: Patient passed flatus while walking. Continues to work with physical therapy. He states he feels much better today. He had about a L out over the last 24 hours, but not much out since passing gas. Exam Vital Signs (past 8 hours): - 07/27/24 08:15 07/27/24 08:33 Temperature 97.3 F L Pulse Rate 87 Respiratory Rate 18 Blood Pressure 113/65 Pulse Oximetry 91 Oxygen Delivery Method Nasal Cannula Oxygen Flow Rate 3 Fraction of Inspired Oxygen 36 SaO2/FiO2 Ratio 252 Oxygen Delivery Method Nasal Cannula Oxygen Flow Rate 3 Narrative Exam Narrative: Still hypoactive bowel sounds Objective Labs 07/27/24 04:30 07/27/24 04:30 Labs: Laboratory Results - last 24 hr 07/27/24 04:30 WBC 8.3 RBC 3.70 L Hgb 11.2 L Hct 33.5 L MCV 90.4 MCH 30.2 MCHC 33.4 RDW 13.4 Plt Count 191 Neut % (Auto) 84.2 H Lymph % (Auto) 4.5 L [place] % (Auto) 11.2 Eos % (Auto) 0.1 L Baso % (Auto) 0.0 Neut # (Auto) 7000 Lymph # (Auto) 400 L [place] # (Auto) 900 Eos # (Auto) 0 Baso # (Auto) 0 Sodium 145 Potassium 3.6 Chloride 110 H Carbon Dioxide 32 BUN 38 H Creatinine 0.91 Estimated GFR > 60 BUN/Creatinine Ratio 41.8 H Glucose 138 H Calcium 8.2 L Magnesium 2.7 H Total Bilirubin 0.5 AST 26 ALT 22 Alkaline Phosphatase 60 Total Protein 5.6 L Albumin 3.0 L Globulin 2.6 Albumin/Globulin Ratio 1.2 [facility] Medical History Lumbar foraminal stenosis Lumbar spondylosis Osteoarthritis, hip, bilateral Lumbar radiculopathy Bilateral hip pain Smoker High cholesterol Bowel obstruction Surgical History H/O exploratory laparotomy (~1980) History of cholecystectomy (~1983) Social History marital status: household members: spouse Smoking Status: Current every day smoker alcohol intake: current Assessment & Plan Post-op Postoperative Procedures: Procedures Operation Date: 07/25/24 14:45 Actual Procedure Side Surgeon p Laparoscopy Diagnostic, OPEN LYSIS OF ADHESIONS Tobi Olivares MD Postoperative day: 2 Postoperative status: doing well Postoperative status narrative: Clamping NG for 6 hours and try clears. If he has nausea or vomiting, we will return to suctioned. If he does not have nausea or vomiting in the next 6 hours, we will discontinue nasogastric tube. Postoperative plan: ambulate Quality VTE Deep Vein Thrombosis/Pulmonary Embolism Present on Admission: No
[2024-07-27] MEDS: LIDOCAINE 5% PATCH 2 EACH TOP (15:27)
[2024-07-27] MEDS: LACTATED RINGERS 1,000 ML 125 ML IV ×2 (15:28→23:52)
[2024-07-27] MEDS: INSULIN LISPRO 100 UNIT/ML 3ML VIAL SUBCUT (17:55)
[2024-07-27] MEDS: GABAPENTIN 300 MG CAPSULE 900 MG PO (18:56)
[2024-07-27] MEDS: ROPINIROLE 1 MG TABLET 4 MG PO (18:57)
[2024-07-27 19:32] VITALS: O2SAT 92
[2024-07-27 20:00] VITALS: BP 122/74; PULSE 88; RESP 20; TEMP 36.9; O2SAT 90
[2024-07-27] MEDS: ONDANSETRON 4 MG/2 ML INJ IV (23:59)
[2024-07-28 04:59] LABS: Add Manual Diff / Slide Review NO; Basophils Absolute Auto 100 /uL (0-100); Basophils Percent Auto 0.9 % (0-2); Eosinophils Absolute Auto 0 /uL (0-450); Eosinophils Percent Auto 0.5 % (2-4); Hematocrit 34.8 % (41-53); Hemoglobin 11.5 g/dL (13.5-17.5); Lymphocytes Absolute Auto 300 /uL (1100-4500); Lymphocytes Percent Auto 3.8 % (25-40); Mean Corpuscular HGB Conc 33.2 % (30-36); Mean Corpuscular Hemoglobin 29.9 PG (26-34); Mean Corpuscular Volume 90.2 fL (80-100); Monocytes Absolute Auto 700 /uL (0-900); Monocytes Percent Auto 10.1 % (3-14); Neutrophils Absolute Auto 6300 /uL (1500-7000); Neutrophils Percent Auto 84.7 % (50-75); Platelet Count 185 X10^3/uL (150-400); Red Blood Cell Count 3.86 X10^6/uL (4.5-5.9); Red Cell Distribution Width 13.4 % (11.6-14.8); White Blood Cell Count 7.4 X10^3/uL (4.5-11.0)
[2024-07-28] MEDS: KETOROLAC 30 MG/ML VIAL 15 MG IV ×3 (05:15→18:21)
[2024-07-28] MEDS: ACETAMINOPHEN IV 1,000 MG/100 ML VIAL 400 MG IV ×3 (05:28→21:34)
[2024-07-28 05:29] LABS: Alanine Aminotransferase 23 IU/L (<50); Albumin 2.9 g/dL (3.5-5.0); Albumin Globulin Ratio 1.1 (1.0-2.8); Alkaline Phosphatase 68 U/L (38-126); Aspartate Aminotransferase 28 IU/L (17-59); BUN Creatinine Ratio 36.8 (6-22); Bilirubin Total 0.4 mg/dL (0.2-1.3); Blood Urea Nitrogen 25 mg/dL (9-20); Calcium 8.1 mg/dL (8.4-10.2); Carbon Dioxide 33 mmol/L (22-32); Chloride 108 mmol/L (98-107); Estimated Glomerular Filt Rate > 60 mL/min (>60); Globulin 2.6 g/dL (1.7-4.1); Glucose 140 mg/dL (80-110); HEMOLYSIS < 15 (0-50); Magnesium 2.6 mg/dL (1.6-2.3); Potassium 3.7 mmol/L (3.4-5.1); Sodium 143 mmol/L (137-145); Total Protein 5.5 g/dL (6.3-8.2)
[2024-07-28 08:00] VITALS: BP 128/79; PULSE 84; RESP 16; TEMP 36.6; O2SAT 93
--- NOTE | 2024-07-28 08:40 | DIET.CONS ---
Dietary Consultation Note Admission Date: 07/23/2024 13:41 Assessment: 74 y M admitted for SBO. PMH of recurrent SBO and DM2. RD screened for LOS. Pt using restroom/receiving care from nursing staff. Spoke to RN, tolerating clears, NG tube out. Day 5 NPO/clears. No recent significant weight loss per chart. Ht: 182.88 cm Wt: 104.326 kg BMI: 31.1 UBW: 108.862 kg on 06/17/ Last BM: 07/22/24 (07/23/24 15:29) MNA: 14 Alex Score: 21 Diet: 07/27/24 Dinner Clear Liquid Diet Diet Modifications: please give Ensure Clear with meals Nutrition Percent Meal Consumed 100% 07/27/24 18:00 Labs: RBC 3.86 X10^6/uL (4.5-5.9) L 07/28/24 04:36 Hgb 11.5 g/dL (13.5-17.5) L 07/28/24 04:36 Hct 34.8 % (41-53) L 07/28/24 04:36 Creatinine 0.68 mg/dL (0.66-1.25) 07/28/24 04:36 Nutrition Diagnosis: Inadequate oral intake r/t alterations in GI tract aeb SBO, pt on clears/NPO for surgery and while awaiting return of bowel function Interventions: 1. Ensure clear TID Monitoring/Evaluations: diet advancements per surgery, f/u tomorrow Electronically Signed by: Ly Tovar 07/28/24 08:40 Clinical Dietitian [address] [address]
[2024-07-28] MEDS: LACTATED RINGERS 1,000 ML 125 ML IV ×2 (09:03→16:43)
[2024-07-28] MEDS: ENOXAPARIN 40 MG/0.4 ML SYRINGE SUBCUT (09:05)
[2024-07-28] MEDS: LIDOCAINE 5% PATCH 2 EACH TOP (09:05)
[2024-07-28] MEDS: GABAPENTIN 300 MG CAPSULE 600 MG PO ×2 (09:05→13:33)
[2024-07-28] MEDS: INSULIN LISPRO 100 UNIT/ML 3ML VIAL SUBCUT ×2 (09:06→17:15)
--- NOTE | 2024-07-28 12:18 | P.PN_ITS ---
Subjective Subjective Interval history: Subjective: NG tube has been removed, he was drinking fluids and denies nausea or belching. He was had flatus but no BM. His abdomen remains distended. He was ambulating. Exam Vital Signs (past 8 hours): - 07/28/24 08:00 Temperature 97.9 F Pulse Rate 84 Respiratory Rate 16 Blood Pressure 128/79 Pulse Oximetry 93 Oxygen Flow Rate 3 Fraction of Inspired Oxygen 32 SaO2/FiO2 Ratio 287 Oxygen Delivery Method Nasal Cannula Oxygen Flow Rate 3 Narrative Exam Narrative: NAD, alert and oriented. Fluent speech. O2 N/C Lungs are clear, normal rate and effort. Heart is regular, no murmur gallop or rub. Abdomen is soft, it was quite distended hypertympanic but nontender. Extremities are free of edema. Objective Labs 07/28/24 04:36 07/28/24 04:36 Labs: Laboratory Results - last 24 hr 07/28/24 04:36 WBC 7.4 RBC 3.86 L Hgb 11.5 L Hct 34.8 L MCV 90.2 MCH 29.9 MCHC 33.2 RDW 13.4 Plt Count 185 Neut % (Auto) 84.7 H Lymph % (Auto) 3.8 L [place] % (Auto) 10.1 Eos % (Auto) 0.5 L Baso % (Auto) 0.9 Neut # (Auto) 6300 Lymph # (Auto) 300 L [place] # (Auto) 700 Eos # (Auto) 0 Baso # (Auto) 100 Sodium 143 Potassium 3.7 Chloride 108 H Carbon Dioxide 33 H BUN 25 H Creatinine 0.68 Estimated GFR > 60 BUN/Creatinine Ratio 36.8 H Glucose 140 H Calcium 8.1 L Magnesium 2.6 H Total Bilirubin 0.4 AST 28 ALT 23 Alkaline Phosphatase 68 Total Protein 5.5 L Albumin 2.9 L Globulin 2.6 Albumin/Globulin Ratio 1.1 [facility] Medical History Lumbar foraminal stenosis Lumbar spondylosis Osteoarthritis, hip, bilateral Lumbar radiculopathy Bilateral hip pain Smoker High cholesterol Bowel obstruction Surgical History H/O exploratory laparotomy (~1980) History of cholecystectomy (~1983) Social History marital status: household members: spouse Smoking Status: Current every day smoker alcohol intake: current Assessment & Plan Assessment & Plan narrative: 1. Recurrent small-bowel obstruction, present on admission and improved. - failed conservative management, underwent extensive laparoscopic converted to open LEAH and an enterotomy with general surgery - appreciate surgery management, discussed with surgeon today likely slow to recover given how extensive LEAH was. 2. Diabetes mellitus type 2, present on admission and stable. -holding metformin -correctional insulin lispro sliding scale while on IV fluid support. Chronic medical problems: 3. Restless leg syndrome, present on admission and stable. 4. Peripheral neuropathy, present on admission and stable. 5. Hyperlipidemia, present on admission and stable. Plan: -NGT out -advance diet per General surgery. -ambulation encouraged. -wean O2 as able. MICHAEL: 07/29. DVT: Lovenox Code: Flavoring Machine Operator-Based Coding :: [TOTAL MINUTES] spent with patient and on the chart (including review of chart, obtaining history, exam, reviewing outside data, placing orders, documenting exam and treatment plan, and counseling patient) on [DATE]. Quality VTE Deep Vein Thrombosis/Pulmonary Embolism Present on Admission: No
--- NOTE | 2024-07-28 18:09 | PC.NURSE ---
Assess- Patient is alert and oriented x4. He denies pain. IV tylenol effective for pain control. Dressing to midline is cdi. Patients bowel tones are hypoactive, tolerating a clear liquid diet. Ambulating in the halls and eating more at meals. IVF infusing and patient tolerating this
[2024-07-28] MEDS: ROPINIROLE 1 MG TABLET 4 MG PO (18:23)
[2024-07-28] MEDS: GABAPENTIN 300 MG CAPSULE 900 MG PO (18:23)
[2024-07-28] MEDS: MORPHINE 4 MG/ML INJ IV (20:09)
[2024-07-28] MEDS: ONDANSETRON 4 MG/2 ML INJ IV (20:14)
[2024-07-28 20:20] VITALS: BP 147/88; PULSE 100; RESP 18; O2SAT 94
[2024-07-28 21:46] VITALS: TEMP 36.8
[2024-07-28 23:52] VITALS: O2SAT 94
[2024-07-29] MEDS: KETOROLAC 30 MG/ML VIAL 15 MG IV ×4 (00:29→18:36)
[2024-07-29] MEDS: LACTATED RINGERS 1,000 ML 125 ML IV ×3 (00:46→20:42)
[2024-07-29] MEDS: ACETAMINOPHEN IV 1,000 MG/100 ML VIAL 400 MG IV ×2 (05:47→21:12)
[2024-07-29 05:56] VITALS: BP 148/84; PULSE 80; RESP 18; TEMP 36.6; O2SAT 95
[2024-07-29] MEDS: LIDOCAINE 5% PATCH 2 EACH TOP (07:57)
[2024-07-29] MEDS: GABAPENTIN 300 MG CAPSULE 600 MG PO ×2 (07:57→12:44)
[2024-07-29] MEDS: ENOXAPARIN 40 MG/0.4 ML SYRINGE SUBCUT (07:57)
[2024-07-29 08:00] VITALS: BP 133/55; PULSE 80; RESP 21; TEMP 36.8; O2SAT 95
[2024-07-29 08:20] VITALS: O2SAT 95
--- NOTE | 2024-07-29 10:59 | DI.RAD.S_ITS ---
PROCEDURE: XR ABDOMEN 1V INDICATIONS: distension after SBP surgery TECHNIQUE: One view of the abdomen acquired. COMPARISON: [facility], CR, XR ABDOMEN MIN 2V, 07/24/2024, 9:24. FINDINGS: Surgical changes and devices: Midline skin ace. Bowel: Prominent gaseous distension of the small bowel measures up to 3.4 cm in diameter. Enteric contrast is now within the colon. Soft tissues: No suspicious abdominal calcifications. Visualized solid organ contours appear normal in size. Bones: No suspicious bony lesions. IMPRESSION: Gaseous distension of small bowel with enteric contrast in the colon. Possible small bowel ileus. Advise short-term interval follow-up. Approved by: Mario Wallis M.D. on 07/29/2024 at 13:43
--- NOTE | 2024-07-29 11:06 | P.PN_ITS ---
Subjective Subjective Interval history: Summary: The patient was admitted on July 23 for a bowel obstruction. He underwent laparoscopy and adhesion lysis on the . He was had slow progression since then with persistent distention, discomfort, and minimal flatus. He was had no bowel movements. S: He had a rough night last night with increased pain and low-grade fever. He denies nausea or vomiting. He did have improvement of his symptoms this morning and now is comfortable. He was had flatus but no BM. He was on oxygen at 2 L, 94%. I removed the oxygen he was at 90% on room air. Exam Vital Signs (past 8 hours): - 07/29/24 05:56 07/29/24 08:00 Temperature 97.9 F 98.3 F Pulse Rate 80 80 Respiratory Rate 18 21 Blood Pressure 148/84 H 133/55 L Pulse Oximetry 95 95 Oxygen Flow Rate 3 3 Fraction of Inspired Oxygen 32 SaO2/FiO2 Ratio 293 Oxygen Delivery Method Nasal Cannula Oxygen Flow Rate 3 Narrative Exam Narrative: SaO2 is 90% on room air, he was comfortable and speaking in full sentences. Lungs are clear with normal effort Heart is regular without murmur Abdomen is distended, hypoactive bowel tones, hypertympanic, and nontender. Minimal leg edema. Objective Labs 07/28/24 04:36 07/28/24 04:36 [facility] Medical History Lumbar foraminal stenosis Lumbar spondylosis Osteoarthritis, hip, bilateral Lumbar radiculopathy Bilateral hip pain Smoker High cholesterol Bowel obstruction Surgical History H/O exploratory laparotomy (~1980) History of cholecystectomy (~1983) Social History marital status: household members: spouse Smoking Status: Current every day smoker alcohol intake: current Assessment & Plan Assessment & Plan narrative: 1. Recurrent small-bowel obstruction, present on admission and improved. 2. Diabetes mellitus type 2, present on admission and stable. -holding metformin -correctional insulin lispro sliding scale while on IV fluid support. 3. Acute hypoxic respiratory failure, new and improving. Chronic medical problems: 3. Restless leg syndrome, present on admission and stable. 4. Peripheral neuropathy, present on admission and stable. 5. Hyperlipidemia, present on admission and stable. Plan: -NGT out -advance diet per General surgery. -ambulation encouraged. -wean O2 as able. MICHAEL: 07/30-. DVT: Lovenox Code: Vice President Of Customer Service-Based Coding :: [TOTAL MINUTES] spent with patient and on the chart (including review of chart, obtaining history, exam, reviewing outside data, placing orders, documenting exam and treatment plan, and counseling patient) on [DATE]. Quality VTE Deep Vein Thrombosis/Pulmonary Embolism Present on Admission: No
--- NOTE | 2024-07-29 11:19 | CM.DPNOTE ---
DCP Cont Reviewed chart. Patient discussed in multidisciplinary rounds. MICHAEL still 24-48 hrs out. NGT out, diet advancing- slow improvement. Medicine attending, surgery consulting. Plan remains discharge home w/family with close outpatient follow up. CM team following closely in case any discharge needs or concerns arise. RADHA
--- NOTE | 2024-07-29 12:31 | PC.NURSE ---
Addendum entered by Julieta Massey R.N. 07/29/24 15:27: Patient up and ambulated in the halls many times this afternoon. He is passing more gas, and denies pain at this time. Original Note: Patient states that he is feeling better today. He is up moving around well. Tolerating his clear liquid diet. Dressing to ml cdi, bt hypoactive x4. Abdominal binder in place.
--- NOTE | 2024-07-29 13:19 | DIET.PN1 ---
Dietary Progress Note Assessment: RD f/u. Met with pt at bedside. Pt confirms before admission to hospital he had normal PO intakes/appetite. Provided diet recall of normal intake - was sufficient to meet his estimated energy needs. Reports no weight loss, usual weight between 230-240 lb (104.5-109 kg). Tolerating clears on tray. Diet advancement per surgery. Pt on day 6 NPO/clears. Will f/u on Thursday. If pt's diet unable to be advanced from clears on Thursday, will consider nutrition support. Ht: 182.88 cm Wt: 104.326 kg BMI: 31.1 UBW: 108.862 kg on 06/17/24 (4% weight loss in 6 weeks, non-severe) Last BM: 07/22/24 (07/23/24 15:29) MNA: 14 Alex Score: 19 Diet: 07/27/24 Dinner Clear Liquid Diet Diet Modifications: please give Ensure Clear with meals Nutrition Percent Meal Consumed 50% 07/28/24 18:00 Percent Meal Consumed 100% 07/27/24 18:00 Labs: RBC 3.86 X10^6/uL (4.5-5.9) L 07/28/24 04:36 Hgb 11.5 g/dL (13.5-17.5) L 07/28/24 04:36 Hct 34.8 % (41-53) L 07/28/24 04:36 Creatinine 0.68 mg/dL (0.66-1.25) 07/28/24 04:36 Nutrition Diagnosis: Inadequate oral intake r/t alterations in GI tract aeb SBO, pt on clears/NPO for surgery and while awaiting return of bowel function Interventions: Ensure clear TID Diet advancement per surgery. Pt on day 6 NPO/clears. Monitoring/Evaluations: Will f/u on Thursday. If patient's diet unable to be advanced from clears by Thursday, will consider TPN at that point. Electronically Signed by: Ly Tovar 07/29/24 13:19 Clinical Dietitian [address] [id number]
[2024-07-29 14:00] VITALS: BP 133/79; PULSE 86; RESP 24; TEMP 36.9; O2SAT 90
--- NOTE | 2024-07-29 14:55 | PM.PN.1 ---
Subjective Subjective Date Patient Seen: 07/29/24 Time Patient Seen: 14:55 Interval history: Patient continues to pass gas, has not yet had a bowel movement. Tolerating liquids without nausea or vomiting Exam Vital Signs (past 8 hours): - 07/29/24 08:00 Temperature 98.3 F Pulse Rate 80 Respiratory Rate 21 Blood Pressure 133/55 L Pulse Oximetry 95 Oxygen Flow Rate 3 Fraction of Inspired Oxygen 32 SaO2/FiO2 Ratio 293 Oxygen Delivery Method Nasal Cannula Oxygen Flow Rate 3 Narrative Exam Narrative: Gen: NAD, sitting comfortably in bed, appears well HEENT: Sclera are anicteric, head is normocephalic and atraumatic, trachea is midline. CV: RRR, no JVD Resp: clear to auscultation bilaterally, equal chest wall movement bilaterally Abd: soft, nontender, normoactive bowel sounds Ext: no edema, full range of motion Neuro: Cranial nerves II-XII grossly intact, no focal deficits Skin: No erythema or ecchymosis Objective Labs 07/28/24 04:36 07/28/24 04:36 [facility] Medical History Lumbar foraminal stenosis Lumbar spondylosis Osteoarthritis, hip, bilateral Lumbar radiculopathy Bilateral hip pain Smoker High cholesterol Bowel obstruction Surgical History H/O exploratory laparotomy (~1980) History of cholecystectomy (~1983) Social History marital status: household members: spouse Smoking Status: Current every day smoker alcohol intake: current Assessment & Plan Assessment and plan (1) Small bowel obstruction: Status: Acute Assessment & Plan narrative: Passing gas tolerating clears, await a bowel movement prior to starting a soft diet Time-Based Coding :: [TOTAL MINUTES] spent with patient and on the chart (including review of chart, obtaining history, exam, reviewing outside data, placing orders, documenting exam and treatment plan, and counseling patient) on [DATE]. Quality VTE Deep Vein Thrombosis/Pulmonary Embolism Present on Admission: No
[2024-07-29] MEDS: MAGNESIUM HYDROXIDE 30 ML UDC PO ×2 (15:47→21:12)
[2024-07-29] MEDS: GABAPENTIN 300 MG CAPSULE 900 MG PO (18:36)
[2024-07-29] MEDS: ROPINIROLE 1 MG TABLET 4 MG PO (18:37)
[2024-07-29 20:15] VITALS: BP 134/85; PULSE 89; RESP 18; TEMP 37.3; O2SAT 91
--- NOTE | 2024-07-29 21:23 | DI.RAD.S_ITS ---
PROCEDURE: XR CHEST 1V INDICATIONS: wheezing TECHNIQUE: One view of the chest was acquired. COMPARISON: [facility], CR, XR CHEST 1V, 07/24/2024, 16:29. FINDINGS: Surgical changes and devices: None. Lungs and pleura: Low lung volumes. Streaky right basilar atelectasis. Peribronchial cuffing. Mediastinum: Mediastinal contours appear normal. Heart size is normal. Bones and chest wall: No suspicious bony lesions. Overlying soft tissues appear unremarkable. IMPRESSION: Peribronchial cuffing, typically indicating infectious or inflammatory bronchitis. Dictated by: Paulino Osorio M.D. on 07/29/2024 at 21:42 Approved by: Paulino Osorio M.D. on 07/29/2024 at 21:42
--- NOTE | 2024-07-29 21:31 | PC.NURSE ---
Addendum entered by Doni Roberson R.N. 07/29/24 23:07: X-ray reviewed by MD and Labs ordered (check emar) pending results Ck will take action for treatment. Addendum entered by Doni Roberson R.N. 07/29/24 21:34: Chest xray just completed, pending results and MD review. Original Note: shift engineer RN noted patient had a notable cough, and upon physical assement noted right lung wheezing, crackles and diminished bases. pet care worker/MD notified. Chest X-ray ordered. Patient has 2liters NC and continues O2 monitoring Pt sating in low 90;s .
[2024-07-29 23:00] LABS: Add Manual Diff / Slide Review NO; Basophils Absolute Auto 100 /uL (0-100); Basophils Percent Auto 0.8 % (0-2); Eosinophils Absolute Auto 100 /uL (0-450); Eosinophils Percent Auto 1.1 % (2-4); Hemoglobin 10.4 g/dL (13.5-17.5); Lymphocytes Absolute Auto 400 /uL (1100-4500); Lymphocytes Percent Auto 4.5 % (25-40); Mean Corpuscular HGB Conc 33.5 % (30-36); Mean Corpuscular Volume 89.5 fL (80-100); Monocytes Absolute Auto 900 /uL (0-900); Monocytes Percent Auto 11.2 % (3-14); Neutrophils Absolute Auto 6900 /uL (1500-7000); Neutrophils Percent Auto 82.4 % (50-75); Platelet Count 199 X10^3/uL (150-400); Red Blood Cell Count 3.47 X10^6/uL (4.5-5.9); Red Cell Distribution Width 13.1 % (11.6-14.8); White Blood Cell Count 8.4 X10^3/uL (4.5-11.0)
[2024-07-29 23:05] LABS: BUN Creatinine Ratio 25.4 (6-22); Blood Urea Nitrogen 15 mg/dL (9-20); Calcium 7.5 mg/dL (8.4-10.2); Carbon Dioxide 29 mmol/L (22-32); Chloride 104 mmol/L (98-107); Estimated Glomerular Filt Rate > 60 mL/min (>60); Glucose 113 mg/dL (80-110); HEMOLYSIS < 15 (0-50); Potassium 3.5 mmol/L (3.4-5.1)
[2024-07-29 23:14] LABS: Sodium 133 mmol/L (137-145)
[2024-07-30] MEDS: KETOROLAC 30 MG/ML VIAL 15 MG IV ×3 (00:19→13:36)
[2024-07-30] MEDS: AZITHROMYCIN 500 MG in DEXTROSE 5% IN WATER 250 ML 250 MG IV ×2 (01:03→23:15)
[2024-07-30] MEDS: ACETAMINOPHEN IV 1,000 MG/100 ML VIAL 400 MG IV (05:59)
[2024-07-30 06:03] LABS: BUN Creatinine Ratio 23.8 (6-22); Blood Urea Nitrogen 15 mg/dL (9-20); Calcium 7.6 mg/dL (8.4-10.2); Carbon Dioxide 30 mmol/L (22-32); Chloride 103 mmol/L (98-107); Estimated Glomerular Filt Rate > 60 mL/min (>60); Glucose 123 mg/dL (80-110); HEMOLYSIS < 15 (0-50); Hematocrit 29.8 % (41-53); Hemoglobin 10.1 g/dL (13.5-17.5); Mean Corpuscular HGB Conc 33.7 % (30-36); Mean Corpuscular Hemoglobin 30.2 PG (26-34); Mean Corpuscular Volume 89.4 fL (80-100); Platelet Count 207 X10^3/uL (150-400); Potassium 3.7 mmol/L (3.4-5.1); Red Blood Cell Count 3.34 X10^6/uL (4.5-5.9); Sodium 136 mmol/L (137-145); White Blood Cell Count 8.4 X10^3/uL (4.5-11.0)
[2024-07-30 08:00] VITALS: BP 131/75; PULSE 78; RESP 19; TEMP 35.9; O2SAT 93
[2024-07-30] MEDS: GABAPENTIN 600 MG TABLET PO ×2 (08:23→13:37)
[2024-07-30] MEDS: MAGNESIUM HYDROXIDE 30 ML UDC PO ×2 (08:23→20:41)
[2024-07-30] MEDS: ENOXAPARIN 40 MG/0.4 ML SYRINGE SUBCUT (08:23)
[2024-07-30] MEDS: LIDOCAINE 5% PATCH 2 EACH TOP (08:24)
[2024-07-30 11:04] VITALS: O2SAT 93
--- NOTE | 2024-07-30 13:31 | PM.PNPO.1 ---
Subjective Subjective Date Patient Seen: 07/30/24 Time Patient Seen: 13:31 Interval history: Patient is sitting up. Looks comfortable. Still burping, but passing flatus and had 1-1/2 bowel movements today. Exam Vital Signs (past 8 hours): - 07/30/24 07:49 07/30/24 08:00 07/30/24 11:04 Temperature 96.6 F L Pulse Rate 78 Respiratory Rate 19 Blood Pressure 131/75 Pulse Oximetry 93 93 Oxygen Delivery Method Room Air Nasal Cannula Oxygen Flow Rate 1 1 Fraction of Inspired Oxygen 32 SaO2/FiO2 Ratio 293 Oxygen Delivery Method Nasal Cannula Oxygen Flow Rate 1 Narrative Exam Narrative: Incisions are clean, dry, intact. [place] in place. Objective Labs 07/30/24 05:30 07/30/24 05:30 Labs: Laboratory Results - last 24 hr 07/29/24 07/30/24 22:45 05:30 WBC 8.4 8.4 RBC 3.47 L 3.34 L Hgb 10.4 L 10.1 L Hct 31.0 L 29.8 L MCV 89.5 89.4 MCH 30.0 30.2 MCHC 33.5 33.7 RDW 13.1 13.0 Plt Count 199 207 Neut % (Auto) 82.4 H Lymph % (Auto) 4.5 L [place] % (Auto) 11.2 Eos % (Auto) 1.1 L Baso % (Auto) 0.8 Neut # (Auto) 6900 Lymph # (Auto) 400 L [place] # (Auto) 900 Eos # (Auto) 100 Baso # (Auto) 100 Sodium 133 L D 136 L Potassium 3.5 3.7 Chloride 104 103 Carbon Dioxide 29 30 BUN 15 15 Creatinine 0.59 L 0.63 L Estimated GFR > 60 > 60 BUN/Creatinine Ratio 25.4 H 23.8 H Glucose 113 H 123 H Calcium 7.5 L 7.6 L PFSH Medical History Lumbar foraminal stenosis Lumbar spondylosis Osteoarthritis, hip, bilateral Lumbar radiculopathy Bilateral hip pain Smoker High cholesterol Bowel obstruction Surgical History H/O exploratory laparotomy (~1980) History of cholecystectomy (~1983) Social History marital status: household members: spouse Smoking Status: Current every day smoker alcohol intake: current Assessment & Plan Post-op Postoperative Procedures: Procedures Operation Date: 07/25/24 14:45 Actual Procedure Side Surgeon p Laparoscopy Diagnostic, OPEN LYSIS OF ADHESIONS Tobi Olivares MD Postoperative day: 5 Postoperative status: doing well Postoperative status narrative: Try soft diet. If tolerates, could be discharged on a soft diet, follow-up in the office in 1-2 weeks for staple removal. Time Spent With Patient Time with patient: less than 15 minutes Quality VTE Deep Vein Thrombosis/Pulmonary Embolism Present on Admission: No
--- NOTE | 2024-07-30 17:59 | P.PN_ITS ---
Subjective Subjective Interval history: 74-year-old male who was admitted on July 23 with recurrent bowel obstruction in the setting of diabetes mellitus type 2, restless legs syndrome, peripheral neuropathy. He underwent lysis of adhesions on July 25. Patient has had 2 bowel movements overnight. He reports he did begin to eat a little bit, and is looking forward to having an actual meal. He denies any shortness a breath. No nausea. He reports this is the longest he has ever been in the hospital for a bowel obstruction. He has taken 1 walk this afternoon and plans to take 1 more a bit later. Exam Vital Signs (past 8 hours): - 07/30/24 11:04 Pulse Oximetry 93 Oxygen Delivery Method Nasal Cannula Oxygen Flow Rate 1 Fraction of Inspired Oxygen 32 SaO2/FiO2 Ratio 293 Oxygen Delivery Method Nasal Cannula Oxygen Flow Rate 1 Narrative Exam Narrative: GEN: Very pleasant middle-aged male, Alert and oriented x 3, NAD HEENT:NC, Face symmetric CHEST: Respiratory excursions symmetric, CTAB CV: RRR, no M/R/G ABD: Soft, mild diffuse abdominal tenderness/ND, BT hypoactive but present in all 4 quadrants, body habitus limits exam EXTR: warm, well perfused, no C/C/E SKIN: warm and dry, no rash NEURO: Alert and oriented x 3, nonfocal Objective Labs 07/30/24 05:30 07/30/24 05:30 Labs: Laboratory Results - last 24 hr 07/29/24 07/30/24 22:45 05:30 WBC 8.4 8.4 RBC 3.47 L 3.34 L Hgb 10.4 L 10.1 L Hct 31.0 L 29.8 L MCV 89.5 89.4 MCH 30.0 30.2 MCHC 33.5 33.7 RDW 13.1 13.0 Plt Count 199 207 Neut % (Auto) 82.4 H Lymph % (Auto) 4.5 L [place] % (Auto) 11.2 Eos % (Auto) 1.1 L Baso % (Auto) 0.8 Neut # (Auto) 6900 Lymph # (Auto) 400 L [place] # (Auto) 900 Eos # (Auto) 100 Baso # (Auto) 100 Sodium 133 L D 136 L Potassium 3.5 3.7 Chloride 104 103 Carbon Dioxide 29 30 BUN 15 15 Creatinine 0.59 L 0.63 L Estimated GFR > 60 > 60 BUN/Creatinine Ratio 25.4 H 23.8 H Glucose 113 H 123 H Calcium 7.5 L 7.6 L PFSH Medical History Lumbar foraminal stenosis Lumbar spondylosis Osteoarthritis, hip, bilateral Lumbar radiculopathy Bilateral hip pain Smoker High cholesterol Bowel obstruction Surgical History H/O exploratory laparotomy (~1980) History of cholecystectomy (~1983) Social History marital status: household members: spouse Smoking Status: Current every day smoker alcohol intake: current Assessment & Plan Assessment & Plan narrative: 1. Recurrent small-bowel obstruction, status post lysis of adhesions with postoperative ileus Resolving. Patient's diet has been advanced to a low-fiber soft diet. He is looking forward to eating this evening. We will continue to monitor. 2. Diabetes mellitus type 2 Continue fingersticks and sliding scale. Metformin is being held. 3. Restless leg syndrome Continues on Requip. 4. Peripheral neuropathy Continue gabapentin 5. Hyperlipidemia Holding atorvastatin for now. Code status Full Prophylaxis On Lovenox Disposition Pending Time-Based Coding :: [TOTAL MINUTES] spent with patient and on the chart (including review of chart, obtaining history, exam, reviewing outside data, placing orders, documenting exam and treatment plan, and counseling patient) on [DATE]. Quality VTE Deep Vein Thrombosis/Pulmonary Embolism Present on Admission: No
[2024-07-30] MEDS: ROPINIROLE 1 MG TABLET 4 MG PO (19:09)
[2024-07-30] MEDS: GABAPENTIN 300 MG CAPSULE 900 MG PO (19:09)
[2024-07-30 20:13] VITALS: BP 163/81; PULSE 88; RESP 18; TEMP 37.5; O2SAT 95
[2024-07-31] MEDS: LIDOCAINE 5% PATCH 2 EACH TOP (08:26)
[2024-07-31] MEDS: GABAPENTIN 600 MG TABLET PO ×2 (08:27→11:57)
[2024-07-31] MEDS: MAGNESIUM HYDROXIDE 30 ML UDC PO (08:27)
[2024-07-31] MEDS: ENOXAPARIN 40 MG/0.4 ML SYRINGE SUBCUT (08:27)
[2024-07-31] MEDS: INSULIN LISPRO 100 UNIT/ML 3ML VIAL SUBCUT (08:27)
[2024-07-31 08:30] VITALS: O2SAT 94
[2024-07-31 08:58] VITALS: BP 141/93; PULSE 84; RESP 17; TEMP 35.8; O2SAT 95
--- NOTE | 2024-07-31 12:32 | CM.DPNOTE ---
DCP Note POWER REGULATOR reviewed EMR. Per RN, pt eating minimally, on 2ltrs O2 still. plan is to get him ambulating more today and sitting up in chair. Per hospitalist in morning rounds, MICHAEL Thursday. plan to continue to advance diet, slow improvement. Per foam charger, had some liquidy BMs overnight. Medicine attending, surgery consulting. Plan remains discharge home w/family with close outpatient follow up. CM team following closely in case any discharge needs or concerns arise. CHINA Richard
--- NOTE | 2024-07-31 14:29 | PM.PNPO.1 ---
Subjective Subjective Date Patient Seen: 07/31/24 Time Patient Seen: 14:29 Interval history: Patient has had 2 bowel movements yesterday and 2 bowel movements today. He has tolerating a soft diet. He is passing flatus. He says he has early satiety, but no nausea or vomiting. Exam Vital Signs (past 8 hours): - 07/31/24 06:59 07/31/24 08:30 07/31/24 08:58 Temperature 96.4 F L Pulse Rate 84 Respiratory Rate 17 Blood Pressure 141/93 H Pulse Oximetry 94 95 Oxygen Delivery Method Nasal Cannula Oxygen Flow Rate 2 2 2 Fraction of Inspired Oxygen 32 SaO2/FiO2 Ratio 293 Oxygen Delivery Method Nasal Cannula Oxygen Flow Rate 2 Narrative Exam Narrative: Gen: NAD, sitting comfortably in bed, appears well HEENT: Sclera are anicteric, head is normocephalic and atraumatic, trachea is midline. CV: RRR, no JVD Resp: clear to auscultation bilaterally, equal chest wall movement bilaterally Abd: soft, nontender, normoactive bowel sounds Ext: no edema, full range of motion Neuro: Cranial nerves II-XII grossly intact, no focal deficits Skin: No erythema or ecchymosis Objective Labs 07/30/24 05:30 07/30/24 05:30 [facility] Medical History Lumbar foraminal stenosis Lumbar spondylosis Osteoarthritis, hip, bilateral Lumbar radiculopathy Bilateral hip pain Smoker High cholesterol Bowel obstruction Surgical History H/O exploratory laparotomy (~1980) History of cholecystectomy (~1983) Social History marital status: household members: spouse Smoking Status: Current every day smoker alcohol intake: current Assessment & Plan Post-op Postoperative Procedures: Procedures Operation Date: 07/25/24 14:45 Actual Procedure Side Surgeon p Laparoscopy Diagnostic, OPEN LYSIS OF ADHESIONS Tobi Olivares MD Postoperative day: 6 Postoperative status: doing well Postoperative status narrative: Patient is tolerating a regular diet. No incisional concerns Postoperative plan: discharge Postoperative plan narrative: Okay for discharge from a surgery standpoint. Time Spent With Patient Time with patient: less than 15 minutes Quality VTE Deep Vein Thrombosis/Pulmonary Embolism Present on Admission: No
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
--- NOTE | 2024-08-01 07:48 | CM.DPC ---
DCP Discharge Home Per MD, pt was able to tolerate his advancing diet yesterday and had bm and was medically stable to discharge home last night 07/31/24 after DCP shift with no identified barriers to discharge and to have outpt f/u with [facility]. Per RN, discharge instructions provided and no concerns noted and spouse bedside for transport last night. CHINA Murphy
--- NOTE | 2024-08-04 10:52 | CM.DPNOTE ---
DCP Note ELECTRONICS MECHANIC received vm from pt regarding questions about his stitches. Pt discharged from acute care 4 days ago. ELECTRONICS MECHANIC returned his call and directed him to [facility] ([phone]). pt appreciated return call. SL
== END 2024-07-31 17:20 | disposition home or self-care (01) | DRG 335 ==
LOC: ED 13:40 → AC 13:42
PROVIDERS: Hospitalist; Internal Medicine; Surgery; Admitting Provider Family Medicine; Emergency Provider Emergency Medicine; Referring Provider Emergency Medicine; Visit Provider Family Medicine
PROC: 0DN80ZZ Release Small Intestine, Open Approach (ICD-10-PCS; CPT 49320; principal; 2024-07-25 14:45)
DX: K56.50 Intestinal adhesions [bands], unspecified as to partial versus complete obstruction (principal); J96.01 Acute respiratory failure with hypoxia; K91.89 Other postprocedural complications and disorders of digestive system; G25.81 Restless legs syndrome; E11.42 Type 2 diabetes mellitus with diabetic polyneuropathy; E78.5 Hyperlipidemia, unspecified; K66.8 Other specified disorders of peritoneum; J40 Bronchitis, not specified as acute or chronic; F17.210 Nicotine dependence, cigarettes, uncomplicated; K56.7 Ileus, unspecified; Y83.8 Other surgical procedures as the cause of abnormal reaction of the patient, or of later complication, without mention of misadventure at the time of the procedure; Y73.3 Surgical instruments, materials and gastroenterology and urology devices (including sutures) associated with adverse incidents; Z79.84 Long term (current) use of oral hypoglycemic drugs
CPT/HCPCS: 36415; 71045; 74018; 74019; 74177; 80048; 80053; 81003; 82962; 83690; 83735; 85025; 85027; 87086; 93005; 94762; 96361; 96374; 96375; 99284; 99285; 99406; J0134; J0171; J0330; J1100; J1171; J1650; J1815; J1885; J2270; J2405; J2704; J3010; J3490; Q9967

== ENCOUNTER 2024-12-18 10:00 | Emergency (ER) | payer OTHER, SELFPAY ==
[2024-07-23 15:29] VITALS: BMI 31.1
[2024-12-18] VITALS (10 sets, daily range): BP systolic 117–141; BP diastolic 58–72; PULSE 49–60; RESP 12–20; TEMP 36.4–36.6; O2SAT 91–98; BMI 31.1
--- NOTE | 2024-12-18 10:14 | DI.RAD.S_ITS ---
PROCEDURE: XR CHEST 1V INDICATIONS: Shortness of breath TECHNIQUE: One view of the chest was acquired. COMPARISON: [facility], , XR CHEST 1V, 07/24/2024, 16:29. [facility], CR, XR CHEST 1V, 07/29/2024, 21:24. FINDINGS: Surgical changes and devices: Cholecystectomy clips are seen. Lungs and pleura: An incomplete inspiratory result is noted, causing a crowded appearance to the lung markings. No focal infiltrates are seen. No pneumothorax or significant pleural effusions are seen. Mediastinum: Mediastinal contours appear normal. Mild tortuosity can be seen of the descending thoracic aorta. Heart size is normal. Bones and chest wall: No suspicious bony lesions. Age-appropriate bony degenerative changes are seen. Overlying soft tissues appear unremarkable. IMPRESSION: Low lung volumes, without an acute abnormality seen by plain film. Dictated by: Adams Malone M.D. on 12/18/2024 at 9:55 Approved by: Adams Malone M.D. on 12/18/2024 at 9:56
[2024-12-18 10:22] LABS: Add Manual Diff / Slide Review NO; Basophils Absolute Auto 0 /uL (0-100); Basophils Percent Auto 0.6 % (0-2); Eosinophils Absolute Auto 100 /uL (0-450); Hematocrit 40.2 % (41-53); Hemoglobin 13.8 g/dL (13.5-17.5); Lymphocytes Absolute Auto 800 /uL (1100-4500); Mean Corpuscular HGB Conc 34.2 % (30-36); Mean Corpuscular Hemoglobin 29.2 PG (26-34); Mean Corpuscular Volume 85.2 fL (80-100); Monocytes Absolute Auto 500 /uL (0-900); Monocytes Percent Auto 8.6 % (3-14); Neutrophils Absolute Auto 3900 /uL (1500-7000); Neutrophils Percent Auto 74.8 % (50-75); Platelet Count 245 X10^3/uL (150-400); Red Blood Cell Count 4.72 X10^6/uL (4.5-5.9); Red Cell Distribution Width 14.7 % (11.6-14.8); White Blood Cell Count 5.3 X10^3/uL (4.5-11.0)
[2024-12-18 10:27] LABS: INR 1.2 (0.9-1.3); Prothrombin Time 13.6 SECONDS (9.4-12.5)
[2024-12-18 10:31] LABS: Lactate (Lactic Acid) 0.9 mmol/L (0.7-2.1)
[2024-12-18 10:32] LABS: Alanine Aminotransferase 27 IU/L (<50); Albumin 4.6 g/dL (3.5-5.0); Albumin Globulin Ratio 1.6 (1.0-2.8); Alkaline Phosphatase 79 U/L (38-126); Aspartate Aminotransferase 30 IU/L (17-59); BUN Creatinine Ratio 14.5 (6-22); Bilirubin Total 0.4 mg/dL (0.2-1.3); Blood Urea Nitrogen 12 mg/dL (9-20); Calcium 9.5 mg/dL (8.4-10.2); Carbon Dioxide 31 mmol/L (22-32); Chloride 100 mmol/L (98-107); Estimated Glomerular Filt Rate > 60 mL/min (>60); Globulin 2.8 g/dL (1.7-4.1); Glucose 104 mg/dL (70-99); HEMOLYSIS < 15 (0-50); Potassium 4.2 mmol/L (3.4-5.1); Sodium 138 mmol/L (137-145); Total Protein 7.4 g/dL (6.3-8.2)
--- NOTE | 2024-12-18 10:34 | EKG_ITS ---
[address] [address] Test Date: 2024-12-18 Pat Name: Marc Garcia Department: [facility] Room: Gender: Male [employer] Correspondent: : 1950 Requested By: Order Number: [id number] Reading MD: Jairon Mercado MD Measurements Intervals [place] Rate: 53 P: 38 [place]: 204 QRS: 51 QRSD: 80 T: 62 QT: 420 QTc: 394 Interpretive Statements Sinus bradycardia Low voltage QRS Electronically Signed On 12-19-2024 7:27:37 PDT by Jairon Mercado MD
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
[2024-12-18 10:43] LABS: NT-proBNP (BNP-Adult 18+) 82 pg/mL (<125); Troponin I < 0.012 ng/mL (0.01-0.034)
--- NOTE | 2024-12-18 10:49 | DI.CT.S_ITS ---
PROCEDURE: CT ABDOMEN PELVIS W CON INDICATIONS: nausea prior SBO TECHNIQUE: After the administration of intravenous contrast, axial sections acquired from the lung bases to the pubic symphysis. Coronal and sagittal reformats were performed. For radiation dose reduction, the following was used: automated exposure control, adjustment of mA and/or kV according to patient size. COMPARISON: [facility], CT, CT CHEST ABDOMEN PELVIS WITH CONTRAST, 07/29/2021, 17:24. [facility], CT, CT ABDOMEN PELVIS W CON, 07/23/2024, 12:17. [facility], CR, XR CHEST 1V, 12/18/2024, 10:35. [facility], CT, CT CHEST ABDOMEN PELVIS WITH CONTRAST, 05/08/2022, 10:15. FINDINGS: Image quality: Diagnostic. Lower Chest: No significant findings. ABDOMEN: Liver: Within segment 7 of the liver, there are enhancing nodular foci, with the largest measuring 14 mm. The appearance is relatively similar to 2020. (The 2020 CT report states that this process is similar to 2013, although those images are not available.) Diffuse fatty liver infiltration is noted. Gallbladder: Cholecystectomy. Biliary ducts: No biliary dilation. Pancreas: No ductal dilation. Spleen: Size is within normal limits. Adrenal Glands: No adrenal nodules. Kidneys and Ureters: No hydronephrosis. No solid mass. No complex renal cystic lesion which requires follow up. Stomach and Bowel: Moderate prominence of the colon can be seen. Colonic diverticulosis is seen, without findings of active diverticulitis. No dilated loops of small bowel are seen. Peritoneum: No abnormal intraperitoneal fluid. No free air. Ventral Wall: There is laxity of the anterior abdominal wall, with rectus diastasis. Abdominal Nodes: No retroperitoneal or mesenteric adenopathy by size criteria. Vessels: Aorta and inferior vena cava are normal in size. PELVIS: Pelvic Organs: Prostatectomy. Bladder: No bladder wall thickening, accounting for underdistention. Pelvic Nodes: No enlarged lymph nodes. Miscellaneous: No inguinal hernias are seen. Bones: No aggressive osseous abnormality. Stable presumed bone island seen involving the right iliac bone. Age-appropriate bony degenerative changes are seen. IMPRESSION: Negative for small bowel obstruction. Moderate prominence can be seen in the colon. Please consider colitis. Foci of nodular enhancement seen within the liver. The appearance is regarded to be similar to 2014 and this is attributed to a benign process. Additional findings: Fatty liver infiltration. Cholecystectomy Laxity of the anterior abdominal wall, with rectus diastasis Diverticulosis, without active diverticulitis Right iliac bone island Prostatectomy Dictated by: Adams aMlone M.D. on 12/18/2024 at 10:34 Approved by: Adams Malone M.D. on 12/18/2024 at 10:42
[2024-12-18] MEDS: SODIUM CHLORIDE 0.9% 1,000 ML 1000 ML IV (10:54)
[2024-12-18] MEDS: ONDANSETRON 4 MG/2 ML INJ IV (10:55)
[2024-12-18 11:08] LABS: Influenza A - CEPHEID Flu A NEGATIVE (NEGATIVE); Influenza B - CEPHEID Flu B NEGATIVE (NEGATIVE); Respiratory Syncytial Virus Negative (Negative)
[2024-12-18 11:34] LABS: COVID-19 CEPHEID 4-PLEX PCR Negative (Negative)
== END 2024-12-18 12:46 | disposition home or self-care (01) ==
PROVIDERS: Emergency Provider Emergency Medicine
DX: R53.1 Weakness (principal); R11.0 Nausea; R42 Dizziness and giddiness; T50.7X5A Adverse effect of analeptics and opioid receptor antagonists, initial encounter; G89.29 Other chronic pain
CPT/HCPCS: 0241U; 36415; 71045; 74177; 80053; 83605; 83880; 84484; 85025; 85610; 93005; 93010; 96361; 96374; 99284; J2405; Q9967

== ENCOUNTER 2025-01-16 17:38 | Emergency (ER) | payer OTHER, SELFPAY ==
[2024-07-23 15:29] VITALS: BMI 31.1
[2025-01-16 18:06] VITALS: BP 117/62; PULSE 66; RESP 16; TEMP 36.9; O2SAT 97; BMI 31.1
[2025-01-16 18:57] LABS: Add Manual Diff / Slide Review NO; Basophils Absolute Auto 0 /uL (0-100); Basophils Percent Auto 0.8 % (0-2); Eosinophils Absolute Auto 200 /uL (0-450); Eosinophils Percent Auto 2.8 % (2-4); Hematocrit 35.1 % (41-53); Hemoglobin 12.1 g/dL (13.5-17.5); Lymphocytes Absolute Auto 800 /uL (1100-4500); Lymphocytes Percent Auto 15.4 % (25-40); Mean Corpuscular HGB Conc 34.5 % (30-36); Mean Corpuscular Hemoglobin 29.6 PG (26-34); Mean Corpuscular Volume 85.8 fL (80-100); Monocytes Absolute Auto 600 /uL (0-900); Monocytes Percent Auto 10.3 % (3-14); Neutrophils Absolute Auto 3800 /uL (1500-7000); Neutrophils Percent Auto 70.7 % (50-75); Platelet Count 193 X10^3/uL (150-400); Red Blood Cell Count 4.09 X10^6/uL (4.5-5.9); Red Cell Distribution Width 14.6 % (11.6-14.8); White Blood Cell Count 5.4 X10^3/uL (4.5-11.0)
[2025-01-16 19:10] LABS: Alanine Aminotransferase 18 IU/L (<50); Albumin Globulin Ratio 1.7 (1.0-2.8); Alkaline Phosphatase 59 U/L (38-126); Aspartate Aminotransferase 25 IU/L (17-59); BUN Creatinine Ratio 18.5 (6-22); Bilirubin Total 0.5 mg/dL (0.2-1.3); Blood Urea Nitrogen 15 mg/dL (9-20); Calcium 9.1 mg/dL (8.4-10.2); Carbon Dioxide 27 mmol/L (22-32); Chloride 107 mmol/L (98-107); Estimated Glomerular Filt Rate > 60 mL/min (>60); Globulin 2.4 g/dL (1.7-4.1); Glucose 106 mg/dL (70-99); HEMOLYSIS < 15 (0-50); Lipase 58 U/L (23-300); Potassium 4.3 mmol/L (3.4-5.1); Sodium 138 mmol/L (137-145); Total Protein 6.4 g/dL (6.3-8.2)
[2025-01-16 21:24] VITALS: BP 130/66; PULSE 64; RESP 18; O2SAT 98
[2025-01-16 21:51] VITALS: BP 121/69; PULSE 67; RESP 18; O2SAT 98
== END 2025-01-16 21:51 | disposition left against medical advice (07) ==
PROVIDERS: Emergency Provider Emergency Medicine
DX: R19.00 Intra-abdominal and pelvic swelling, mass and lump, unspecified site (principal); Z53.21 Procedure and treatment not carried out due to patient leaving prior to being seen by health care provider
CPT/HCPCS: 36415; 80053; 83690; 85025; 99283

== ENCOUNTER 2025-01-17 07:52 | Emergency (ER) | payer OTHER, SELFPAY ==
[2024-07-23 15:29] VITALS: BMI 31.1
[2025-01-17 08:00] VITALS: BP 147/71; PULSE 79; RESP 18; TEMP 36.6; O2SAT 96; BMI 31.1
[2025-01-17 08:08] VITALS: PULSE 66; O2SAT 92
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
[2025-01-17 08:20] VITALS: BP 141/75; PULSE 65; O2SAT 94
[2025-01-17 08:30] VITALS: BP 127/68; PULSE 61; O2SAT 91
[2025-01-17 09:00] VITALS: BP 120/62; PULSE 57; O2SAT 92
== END 2025-01-17 09:11 | disposition home or self-care (01) ==
LOC: ED 08:37
PROVIDERS: Emergency Provider Emergency Medicine
DX: K43.2 Incisional hernia without obstruction or gangrene (principal)
CPT/HCPCS: 74176; 99281; 99284